=== PATIENT | female | born 1965 | race Caucasian/White ===

== ENCOUNTER 2019-01-10 21:17 | Emergency (ER) | payer MEDICAID ==
[~2019-01-10] VITALS: Ht 165.1 cm; Wt 71.3 kg
[~2019-01-10 21:17] MED LIST: ASPI-1265 PO; BUDE10.2 INH; CARB200T8 PO; CITA20TA28 PO; CLON-514 PO; DESM0.2T31 PO; DOCU100C40 PO; FEXO180T94 PO; FLUT1AER INH; LEVA15HF4 INH; LEVE500T PO; LEVO112T5 PO; LORA0.5T PO; PANT20TA2 PO; PRAV10TA38 PO; REM15T PO; TIOT4MIS2 PO
--- NOTE | 2019-01-10 22:06 | NUR ---
DR BELLAMY AT BEDSIDE,PT AWAKE NOW ,FAMILY AT BEDSIDE.
[2019-01-10] MEDS ORDERED: normal saline 1000ml 1,000 ML IV ONE (22:35)
[2019-01-10 22:52] LABS: BASOPHILS % (AUTO) 0.6 % (0-1); EOSINOPHILS # (AUTO) 0.3 X10'3 (0-0.9); EOSINOPHILS % (AUTO) 3.3 % (0-6); HEMATOCRIT 31.5 % (35.0-45.0); LYMPHOCYTES # (AUTO) 1.5 X10'3 (1.1-4.8); LYMPHOCYTES % (AUTO) 17.9 % (21-51); MEAN CORPUSCULAR HEMOGLOBIN 32.7 PG (27.0-31.0); MEAN CORPUSCULAR VOLUME 93.4 FL (78-98); MEAN PLATELET VOLUME 6.8 FL (7.4-10.4); MONOCYTES # (AUTO) 0.6 X10'3 (0-0.9); MONOCYTES % (AUTO) 6.8 % (2-12); NEUTROPHILS # (AUTO) 6.2 X10'3 (1.8-7.7); NEUTROPHILS % (AUTO) 71.4 % (42-75); PLATELET COUNT 300 X10'3 (140-440); RED BLOOD COUNT 3.37 X10'6 (4.20-5.60); RED CELL DISTRIBUTION WIDTH 14.1 % (11.5-14.5); WHITE BLOOD COUNT 8.6 X10'3 (4.5-11.0)
[2019-01-10 23:05] LABS: ALANINE AMINOTRANSFERASE 31 U/L (12-78); ALBUMIN 3.1 G/DL (3.4-5.0); ALKALINE PHOSPHATASE 150 IU/L (46-116); ANION GAP 5 (8-16); ASPARTATE AMINO TRANSFERASE 7 U/L (10-37); BILIRUBIN,TOTAL 0.3 MG/DL (0.1-1.0); BLOOD UREA NITROGEN 16 MG/DL (7-18); CALCIUM 6.8 MG/DL (8.5-10.1); CHLORIDE 99 MMOL/L (99-107); CREATININE 0.64 MG/DL (0.40-0.90); GLUCOSE 103 MG/DL (70-104); POTASSIUM 4.3 MMOL/L (3.5-5.1); SODIUM 129 MMOL/L (135-145); TOTAL CARBON DIOXIDE 25.2 MMOL/L (24-32); TOTAL PROTEIN 6.2 G/DL (6.4-8.2); eGFR > 90 ML/MIN
[2019-01-10 23:08] VITALS: BP 112/62
[2019-01-10 23:13] LABS: CREATINE KINASE 75 U/L (26-192)
--- NOTE | 2019-01-10 23:13 | NUR ---
PT ASSISTED TO RESTROOM,PT ALERTX4 DENIES ANY DIZZINESS.
[2019-01-10 23:15] LABS: ETHANOL < 0.010 GM/DL (0.0-0.010)
[2019-01-10 23:31] LABS: CLARITY,URINE CLEAR (Clear); COLOR,URINE YELLOW (Yellow); GLUCOSE, URINE NEGATIVE (Neg); KETONES,URINE NEGATIVE (Neg); LEUKOCYTE ESTERASE ,URINE NEGATIVE (Neg); NITRITES, URINE NEGATIVE (Neg); OCCULT BLOOD,URINE NEGATIVE (Neg); PH,URINE 5.5 (4.8-8.0); PROTEIN,URINE NEGATIVE (Neg); UROBILINOGEN,URINE 0.2 E.U/dL (0.2-1.0)
[2019-01-10 23:41] LABS: UA COLLECTION TYPE CLN CATCH MIDSTREAM
[2019-01-10 23:57] LABS: URINE AMPHETAMINE SCREEN NEGATIVE (Neg); URINE BARBITUATE SCREEN NEGATIVE (Neg); URINE BENZODIAZEPINES SCREEN NEGATIVE (Neg); URINE CANNABINOID SCREEN POSITIVE (Neg); URINE COCAINE SCREEN NEGATIVE (Neg); URINE METHADONE SCREEN NEGATIVE (Neg); URINE OPIATE SCREEN POSITIVE (Neg); URINE PHENCYCLIDINE SCREEN NEGATIVE (Neg)
== END 2019-01-11 00:10 | disposition home or self-care (01) ==
LOC: ER 21:18
DX: R55 Syncope and collapse (principal); R94.6 Abnormal results of thyroid function studies; G43.909 Migraine, unspecified, not intractable, without status migrainosus; J44.9 Chronic obstructive pulmonary disease, unspecified; G89.29 Other chronic pain; F12.90 Cannabis use, unspecified, uncomplicated; Z86.73 Personal history of transient ischemic attack (TIA), and cerebral infarction without residual deficits; Z88.0 Allergy status to penicillin; Z88.8 Allergy status to other drugs, medicaments and biological substances; Z88.6 Allergy status to analgesic agent; Z79.82 Long term (current) use of aspirin
CPT/HCPCS: 36415; 80053; 80305; 80320; 81003; 82140; 82550; 84443; 85025; 85610; 93005; 96361; 99284; J7030; 96360

== ENCOUNTER 2019-08-24 15:49 | Emergency (ER) | payer MEDICAID ==
[~2019-08-24] VITALS: Ht 162.6 cm; Wt 60.0 kg
[2019-08-24 17:00] VITALS: BP 110/71
[2019-08-24] MEDS ORDERED: HYDROcodone/acetaminophen 10/325mg tab PO ONE (17:20)
[2019-08-24] MEDS ORDERED: IBUP-1984 PO (18:13)
== END 2019-08-24 19:09 | disposition home or self-care (01) ==
LOC: ER 15:49
DX: S06.0X1A Concussion with loss of consciousness of 30 minutes or less, initial encounter (principal); S42.291A Other displaced fracture of upper end of right humerus, initial encounter for closed fracture; S71.031A Puncture wound without foreign body, right hip, initial encounter; S00.83XA Contusion of other part of head, initial encounter; G43.909 Migraine, unspecified, not intractable, without status migrainosus; J44.9 Chronic obstructive pulmonary disease, unspecified; G89.29 Other chronic pain; F12.90 Cannabis use, unspecified, uncomplicated; Z86.73 Personal history of transient ischemic attack (TIA), and cerebral infarction without residual deficits; Z79.82 Long term (current) use of aspirin; Z79.899 Other long term (current) drug therapy; Z88.0 Allergy status to penicillin; Z88.8 Allergy status to other drugs, medicaments and biological substances; Z88.5 Allergy status to narcotic agent; Z88.6 Allergy status to analgesic agent; W01.198A Fall on same level from slipping, tripping and stumbling with subsequent striking against other object, initial encounter; Y93.89 Activity, other specified; Y92.89 Other specified places as the place of occurrence of the external cause; Y99.9 Unspecified external cause status
CPT/HCPCS: 70450; 73030; 99284

== ENCOUNTER 2019-10-22 10:38 | Inpatient (IN) | payer MEDICAID ==
[~2019-10-22] VITALS: Ht 162.6 cm; Wt 59.1 kg
[2019-10-22] MEDS ORDERED: oxyCODONE/APAP 5-325mg tablet PO ONE (11:30)
[2019-10-22] MEDS ORDERED: ondansetron 4mg rapidly disintigrating tab PO ONE (11:30)
[2019-10-22 12:21] LABS: BASOPHILS % (AUTO) 0.6 % (0-1); EOSINOPHILS % (AUTO) 0.5 % (0-6); HEMATOCRIT 37.1 % (35.0-45.0); HEMOGLOBIN 12.5 g/dl (12.0-16.0); LYMPHOCYTES # (AUTO) 1.3 X10'3 (1.1-4.8); LYMPHOCYTES % (AUTO) 18.4 % (21-51); MEAN CORPUSCULAR HEMOGLOBIN 30.9 PG (27.0-31.0); MEAN CORPUSCULAR HGB CONC 33.7 g/dL (33.0-36.5); MEAN CORPUSCULAR VOLUME 91.7 FL (78-98); MEAN PLATELET VOLUME 6.3 FL (7.4-10.4); MONOCYTES # (AUTO) 0.4 X10'3 (0-0.9); MONOCYTES % (AUTO) 5.5 % (2-12); NEUTROPHILS # (AUTO) 5.4 X10'3 (1.8-7.7); PLATELET COUNT 348 X10'3 (140-440); RED BLOOD COUNT 4.04 X10'6 (4.20-5.60); RED CELL DISTRIBUTION WIDTH 13.5 % (11.5-14.5); WHITE BLOOD COUNT 7.2 X10'3 (4.5-11.0)
[2019-10-22] MEDS ORDERED: morphine 2 MG/ML inj. syringe IV PRN ×2 (12:30→13:25)
[2019-10-22] MEDS ORDERED: acetaminophen 325mg tablet PO PRN (12:30)
[2019-10-22] MEDS ORDERED: magnesium hydroxide 30ml (MOM) UD suspension PO PRN (12:30)
[2019-10-22] MEDS ORDERED: ondansetron/PF 4mg/2ml inj IV PRN ×2 (12:30→13:25)
[2019-10-22] MEDS ORDERED: mag hydrox/Alum hydrox/simeth 30ml oral suspension PO PRN (12:30)
[2019-10-22 12:33] LABS: PARTIAL THROMBOPLASTIN TIME 29 SECONDS (22-32)
[2019-10-22 12:41] LABS: ALANINE AMINOTRANSFERASE 20 U/L (12-78); ALBUMIN 3.7 G/DL (3.4-5.0); ALKALINE PHOSPHATASE 180 IU/L (46-116); ANION GAP 8 (8-16); ASPARTATE AMINO TRANSFERASE 15 U/L (10-37); BILIRUBIN,TOTAL 0.2 MG/DL (0.1-1.0); BLOOD UREA NITROGEN 8 MG/DL (7-18); BUN/CREATININE RATIO 12.3 (6.6-38.0); CALCIUM 8.8 MG/DL (8.5-10.1); CHLORIDE 93 MMOL/L (99-107); CREATININE 0.65 MG/DL (0.40-0.90); GLUCOSE 104 MG/DL (70-104); POTASSIUM 4.5 MMOL/L (3.5-5.1); SODIUM 125 MMOL/L (135-145); TOTAL PROTEIN 7.4 G/DL (6.4-8.2); eGFR > 90 ML/MIN
[2019-10-22] MEDS ORDERED: GABA-534 PO (12:50)
[2019-10-22] MEDS ORDERED: LISI10TA4 PO (12:50)
[2019-10-22] MEDS ORDERED: HYDR-3965 PO (12:50)
[2019-10-22] MEDS ORDERED: LEVO100T PO (12:50)
[2019-10-22] MEDS ORDERED: TOP100T PO (12:50)
[2019-10-22] MEDS: normal saline 1000ml 1,000 ML IV SCH ×2 (13:03→23:04)
[2019-10-22] MEDS ORDERED: ringers solution, lacted 1,000 ML IV SCH (13:23)
[2019-10-22] MEDS ORDERED: proCHLORperazine 10 MG/2 ml inj IV PRN (13:25)
[2019-10-22] MEDS ORDERED: meperidine/PF 25mg/ml syringe IV PRN ×3 (13:25)
[2019-10-22] MEDS ORDERED: morphine 4 MG/ML inj SYRINge IV PRN (13:25)
[2019-10-22] MEDS: morphine 2 MG/ML inj. syringe IV PRN ×2 (13:31→19:38)
--- NOTE | 2019-10-22 13:35 | NUR ---
Pt having continued pain 8/10 after PO medication given 1 hour ago. Pt given IV morphine for her pain.
[2019-10-22] MEDS ORDERED: docusate sod 100mg capsule PO PRN (16:25)
[2019-10-22 16:35] VITALS: BP 166/88
[2019-10-22] MEDS: LORazepam 0.5 MG tablet PO PRN (16:40)
[2019-10-22] MEDS: HYDROcodone/acetaminophen 5mg/325mg tablet PO PRN (16:40)
[2019-10-22] MEDS: nicotine 14mg patch - 24hr TD SCH (16:59)
[2019-10-22] MEDS ORDERED: LIDOcaine 2% 10ml TOPICAL JELLY (Urojet) TP ONE (17:10)
--- NOTE | 2019-10-22 18:11 | NUR ---
Problems reprioritized. Patient report given, questions answered & plan of care reviewed with Nicole GOMEZ.
[2019-10-22] MEDS ORDERED: non-formulary drug (Budesonide/Formoterol Fumarate (Symbicort 160-4.5 Mcg Inhaler) 2 PUFFS INH SCH (20:00)
[2019-10-22] MEDS: heparin, porcine 5000 units/ml vial SQ SCH (20:00)
[2019-10-22] MEDS: ipratropium 0.5 MG/2.5ML nebule IH SCH (20:05)
[2019-10-22] MEDS: carBAMazepine Ext. Release 200 MG TAB.ER.12H PO SCH (20:43)
[2019-10-22] MEDS: gabapentin 400mg capsule PO SCH (20:43)
[2019-10-22 22:00] VITALS: BP 132/48
[2019-10-22] MEDS: topiramate 100mg tablet PO SCH (22:06)
[2019-10-22] MEDS: mirtazapine 15mg tablet PO SCH (22:06)
[2019-10-23] VITALS (19 sets, daily range): BP systolic 94–163; BP diastolic 48–91
[2019-10-23] MEDS: morphine 2 MG/ML inj. syringe IV PRN ×5 (01:03→21:17)
[2019-10-23 03:11] LABS: CLARITY,URINE CLEAR (Clear); COLOR,URINE STRAW (Yellow); GLUCOSE, URINE NEGATIVE (Neg); KETONES,URINE 15 mg/dl (Neg); LEUKOCYTE ESTERASE ,URINE NEGATIVE (Neg); NITRITES, URINE NEGATIVE (Neg); OCCULT BLOOD,URINE TRACE-INTACT (Neg); PH,URINE 6.5 (4.8-8.0); PROTEIN,URINE NEGATIVE (Neg); UROBILINOGEN,URINE 0.2 E.U/dL (0.2-1.0)
[2019-10-23 03:22] LABS: UA COLLECTION TYPE STRAIGHT CATH
[2019-10-23 03:24] LABS: BACTERIA,URINE NONE SEEN /HPF (Neg); RBC,URINE 0-2 /HPF (0-2); SQUAMOUS EPITHELIAL CELL,UR FEW /LPF (FEW); WBC,URINE 0-4 /HPF (0-4)
[2019-10-23] MEDS: ipratropium 0.5 MG/2.5ML nebule IH SCH ×4 (04:00→20:05)
[2019-10-23 05:30] LABS: BASOPHILS % (AUTO) 0.5 % (0-1); EOSINOPHILS % (AUTO) 0.4 % (0-6); HEMATOCRIT 36.8 % (35.0-45.0); HEMOGLOBIN 12.5 g/dl (12.0-16.0); LYMPHOCYTES # (AUTO) 1.2 X10'3 (1.1-4.8); LYMPHOCYTES % (AUTO) 22.2 % (21-51); MEAN CORPUSCULAR HEMOGLOBIN 31.3 PG (27.0-31.0); MEAN CORPUSCULAR HGB CONC 34.1 g/dL (33.0-36.5); MEAN CORPUSCULAR VOLUME 91.9 FL (78-98); MEAN PLATELET VOLUME 6.6 FL (7.4-10.4); MONOCYTES # (AUTO) 0.4 X10'3 (0-0.9); MONOCYTES % (AUTO) 7.2 % (2-12); NEUTROPHILS # (AUTO) 3.9 X10'3 (1.8-7.7); NEUTROPHILS % (AUTO) 69.7 % (42-75); PLATELET COUNT 357 X10'3 (140-440); RED CELL DISTRIBUTION WIDTH 13.5 % (11.5-14.5); WHITE BLOOD COUNT 5.6 X10'3 (4.5-11.0)
[2019-10-23 05:39] LABS: ALBUMIN 3.5 G/DL (3.4-5.0); ANION GAP 10 (8-16); BLOOD UREA NITROGEN 7 MG/DL (7-18); BUN/CREATININE RATIO 10.9 (6.6-38.0); CALCIUM 8.7 MG/DL (8.5-10.1); CHLORIDE 106 MMOL/L (99-107); CREATININE 0.64 MG/DL (0.40-0.90); GLUCOSE 98 MG/DL (70-104); POTASSIUM 3.8 MMOL/L (3.5-5.1); SODIUM 139 MMOL/L (135-145); TOTAL CARBON DIOXIDE 23.3 MMOL/L (24-32); eGFR > 90 ML/MIN
--- NOTE | 2019-10-23 06:00 | NUR ---
Patient in room ORTHO 4007. I have received report from Nicole GOMEZ and had the opportunity to ask questions and assume patient care.
--- NOTE | 2019-10-23 06:57 | NUR ---
Patient going to OR, called report to Recovery
[2019-10-23] MEDS ORDERED: MIDAZolam 5mg/5ml vial ONE (07:13)
[2019-10-23] MEDS ORDERED: fentaNYL/PF 50MCG/1 ML 2ML syringe ONE (07:13)
[2019-10-23] MEDS: loratadine 10mg tablet PO SCH (07:16)
[2019-10-23] MEDS: VILANTEROL IH SCH (07:16)
[2019-10-23] MEDS: citalopram 20mg tablet PO SCH ×2 (07:16→09:59)
[2019-10-23] MEDS: FLUTICASONE IH SCH (07:16)
[2019-10-23] MEDS: aspirin 81mg tab.chew PO SCH (07:16)
[2019-10-23] MEDS: heparin, porcine 5000 units/ml vial SQ SCH ×2 (07:17→20:25)
[2019-10-23] MEDS ORDERED: VANCOMYCIN 1,500MG inj. 1,500 MG in normal saline 500ml IV soln 500 ML IV ONE (07:30)
[2019-10-23] MEDS ORDERED: CLINDAMYCIN/D5W 900mg/50ml 50 ML IV ONE (07:30)
[2019-10-23] MEDS ORDERED: DESMOPRESSIN ACETATE 0.2 MG TABLET PO SCH (08:00)
[2019-10-23] MEDS: lisinopril 10 MG tablet PO SCH (08:00)
[2019-10-23] MEDS ORDERED: non-formulary drug (Tiotropium Bromide (Spiriva Respimat) 2 PUFFS) PO SCH (08:00)
[2019-10-23] MEDS ORDERED: non-formulary drug (Fluticasone/Vilanterol (Breo Ellipta 100-25 Mcg INH) 1 PUFF) INH SCH (08:00)
[2019-10-23] MEDS ORDERED: LIDOcaine 1%/PF 5ML 10 MG/ML VIAL ONE (08:28)
[2019-10-23] MEDS ORDERED: propofol inj 20 ML IV ONE (08:28)
[2019-10-23] MEDS ORDERED: diphenhydrAMINE 50 mg/ml inj ONE (08:28)
--- NOTE | 2019-10-23 08:29 | NUR ---
Received from OR via ORTHO BED WITH [facility] , accompanied by Anesthesiologist NADIA and report given by Anesthesiolgist. PATIENT SPINAL ANESTHESIA T-12 SENSATION LEVEL. ROUSED, DONNED GLASSES. VSS. DENIES PAIN. RIGHT HIP DRESSINGS ARE CDI. + DP ON DOPPLER BILATERALLY. SCDS DONNED. 20G PIV IN RIGHT UE RUNNING LR AT 100. Addendum: 10/23/19 at 0901 by Tera Rodriguez RN, RN Amended: Links added.
[2019-10-23] MEDS: normal saline 1000ml 1,000 ML IV SCH ×2 (08:30→18:47)
--- NOTE | 2019-10-23 09:29 | NUR ---
Patient has met criteria for transfer to floor. Patient vss. Pain at a tolerable level. Transferred via bed to room where they were hooked to vitals and RN notified patient has arrived. Bed low, call light within reach, 2-3 rails up, vss, belongings placed in room. Care turned over to JASON HILLMAN. Addendum: 10/23/19 at 0941 by Tera Jordan - JASON GOMEZ Amended: Links added.
[2019-10-23] MEDS: levoTHYROXINE 100mcg tablet PO SCH (09:59)
[2019-10-23] MEDS: pantoprazole 40mg Tablet.DR PO SCH (09:59)
[2019-10-23] MEDS: gabapentin 400mg capsule PO SCH ×3 (09:59→20:24)
[2019-10-23] MEDS: carBAMazepine Ext. Release 200 MG TAB.ER.12H PO SCH ×3 (10:00→20:24)
[2019-10-23] MEDS: nicotine 14mg patch - 24hr TD SCH (10:00)
[2019-10-23] MEDS: HYDROcodone/acetaminophen 5mg/325mg tablet PO PRN (10:57)
[2019-10-23] MEDS: levalbuterol 1.25mg/0.5ml nebule IH PRN (13:51)
[2019-10-23] MEDS: HYDROcodone/acetaminophen 10/325mg tab PO PRN ×3 (14:43→23:45)
[2019-10-23] MEDS: clindamycin-Cleocin 900mg/D5W 50 ML IV SCH ×2 (16:02→23:45)
[2019-10-23] MEDS: LORazepam 0.5 MG tablet PO PRN (16:02)
--- NOTE | 2019-10-23 18:05 | NUR ---
Problems reprioritized. Patient report given, questions answered & plan of care reviewed with Nahomi GOMEZ.
--- NOTE | 2019-10-23 18:16 | NUR ---
Patient in room ORTHO 4007. I have received report from Kimberly GOMEZ and had the opportunity to ask questions and assume patient care.
[2019-10-23] MEDS: topiramate 100mg tablet PO SCH (20:24)
[2019-10-23] MEDS: DESMOPRESSIN ACETATE 0.2 MG TABLET PO SCH (20:24)
[2019-10-23] MEDS: mirtazapine 15mg tablet PO SCH (20:25)
[2019-10-24 02:00] VITALS: BP 170/86
[2019-10-24] MEDS: morphine 2 MG/ML inj. syringe IV PRN ×3 (02:06→11:16)
[2019-10-24] MEDS: ipratropium 0.5 MG/2.5ML nebule IH SCH ×4 (02:24→20:09)
[2019-10-24] MEDS ORDERED: lisinopril 10 MG tablet PO ONE (04:30)
[2019-10-24] MEDS: normal saline 1000ml 1,000 ML IV SCH ×2 (04:30→08:42)
--- NOTE | 2019-10-24 04:30 | NUR ---
Patient having high BP's. Spoke to Dr. Russell and got a one time dose of Lisinopril to give to pt. Patient stated she normally takes lisinopril daily but did not receive it on 10/22 due to having surgery.
[2019-10-24] MEDS: HYDROcodone/acetaminophen 10/325mg tab PO PRN ×5 (04:35→21:55)
[2019-10-24 05:59] LABS: BASOPHILS % (AUTO) 0.5 % (0-1); EOSINOPHILS % (AUTO) 0.6 % (0-6); HEMATOCRIT 30.7 % (35.0-45.0); HEMOGLOBIN 10.3 g/dl (12.0-16.0); LYMPHOCYTES # (AUTO) 1.3 X10'3 (1.1-4.8); LYMPHOCYTES % (AUTO) 23.2 % (21-51); MEAN CORPUSCULAR HEMOGLOBIN 30.8 PG (27.0-31.0); MEAN CORPUSCULAR HGB CONC 33.5 g/dL (33.0-36.5); MEAN PLATELET VOLUME 6.6 FL (7.4-10.4); MONOCYTES # (AUTO) 0.5 X10'3 (0-0.9); MONOCYTES % (AUTO) 8.9 % (2-12); NEUTROPHILS # (AUTO) 3.9 X10'3 (1.8-7.7); NEUTROPHILS % (AUTO) 66.8 % (42-75); PLATELET COUNT 258 X10'3 (140-440); RED BLOOD COUNT 3.34 X10'6 (4.20-5.60); RED CELL DISTRIBUTION WIDTH 13.2 % (11.5-14.5); WHITE BLOOD COUNT 5.8 X10'3 (4.5-11.0)
[2019-10-24 06:00] VITALS: BP 176/81
[2019-10-24 06:11] LABS: ALBUMIN 2.7 G/DL (3.4-5.0); ANION GAP 9 (8-16); BLOOD UREA NITROGEN 5 MG/DL (7-18); BUN/CREATININE RATIO 9.1 (6.6-38.0); CALCIUM 7.7 MG/DL (8.5-10.1); CHLORIDE 101 MMOL/L (99-107); CREATININE 0.55 MG/DL (0.40-0.90); GLUCOSE 111 MG/DL (70-104); POTASSIUM 3.3 MMOL/L (3.5-5.1); SODIUM 132 MMOL/L (135-145); TOTAL CARBON DIOXIDE 22.4 MMOL/L (24-32); eGFR > 90 ML/MIN
--- NOTE | 2019-10-24 06:31 | NUR ---
Problems reprioritized. Patient report given, questions answered & plan of care reviewed with Kimberly GOMEZ.
--- NOTE | 2019-10-24 06:34 | NUR ---
Patient in room ORTHO 4007. I have received report from Nahomi GOMEZ and had the opportunity to ask questions and assume patient care.
[2019-10-24] MEDS: VILANTEROL IH SCH (08:00)
[2019-10-24] MEDS: FLUTICASONE IH SCH (08:00)
[2019-10-24] MEDS: lisinopril 10 MG tablet PO SCH (08:00)
[2019-10-24] MEDS: levalbuterol 1.25mg/0.5ml nebule IH PRN ×2 (08:19→14:05)
[2019-10-24] MEDS: carBAMazepine Ext. Release 200 MG TAB.ER.12H PO SCH ×3 (08:34→20:07)
[2019-10-24] MEDS: levoTHYROXINE 100mcg tablet PO SCH (08:34)
[2019-10-24] MEDS: gabapentin 400mg capsule PO SCH ×3 (08:34→20:07)
[2019-10-24] MEDS: loratadine 10mg tablet PO SCH (08:34)
[2019-10-24] MEDS: citalopram 20mg tablet PO SCH (08:35)
[2019-10-24] MEDS: aspirin 81mg tab.chew PO SCH (08:35)
[2019-10-24] MEDS: pantoprazole 40mg Tablet.DR PO SCH (08:35)
[2019-10-24] MEDS: heparin, porcine 5000 units/ml vial SQ SCH ×2 (08:40→20:07)
[2019-10-24] MEDS: nicotine 14mg patch - 24hr TD SCH (08:41)
[2019-10-24 10:00] VITALS: BP 142/74
[2019-10-24] MEDS ORDERED: potassium Cl 20 mEq SR tablet PO PRN (11:00)
[2019-10-24] MEDS ORDERED: potassium CL 10mEq/100ml bag 100 ML IV PRN (11:00)
[2019-10-24] MEDS: potassium Cl 20 mEq SR tablet PO PRN ×3 (11:14→22:10)
[2019-10-24 18:00] VITALS: BP 168/84
--- NOTE | 2019-10-24 18:00 | NUR ---
Problems reprioritized. Patient report given, questions answered & plan of care reviewed with Donna GOMEZ.
--- NOTE | 2019-10-24 18:40 | NUR ---
Patient in room ORTHO 4007. I have received report from Kimberly GOMEZ and had the opportunity to ask questions and assume patient care.
[2019-10-24] MEDS: DESMOPRESSIN ACETATE 0.2 MG TABLET PO SCH (20:08)
[2019-10-24] MEDS: mirtazapine 15mg tablet PO SCH (20:08)
[2019-10-24] MEDS: topiramate 100mg tablet PO SCH (20:08)
[2019-10-24 22:00] VITALS: BP 158/82
[2019-10-25] MEDS: ipratropium 0.5 MG/2.5ML nebule IH SCH ×2 (02:31→09:11)
[2019-10-25] MEDS: HYDROcodone/acetaminophen 10/325mg tab PO PRN ×2 (05:02→08:57)
[2019-10-25 05:16] LABS: BASOPHILS % (AUTO) 0.5 % (0-1); EOSINOPHILS # (AUTO) 0.1 X10'3 (0-0.9); EOSINOPHILS % (AUTO) 0.9 % (0-6); HEMATOCRIT 30.1 % (35.0-45.0); HEMOGLOBIN 10.5 g/dl (12.0-16.0); LYMPHOCYTES # (AUTO) 1.3 X10'3 (1.1-4.8); LYMPHOCYTES % (AUTO) 17.2 % (21-51); MEAN CORPUSCULAR HEMOGLOBIN 31.7 PG (27.0-31.0); MEAN CORPUSCULAR HGB CONC 34.7 g/dL (33.0-36.5); MEAN CORPUSCULAR VOLUME 91.2 FL (78-98); MEAN PLATELET VOLUME 6.8 FL (7.4-10.4); MONOCYTES # (AUTO) 0.7 X10'3 (0-0.9); MONOCYTES % (AUTO) 8.7 % (2-12); NEUTROPHILS # (AUTO) 5.6 X10'3 (1.8-7.7); NEUTROPHILS % (AUTO) 72.7 % (42-75); PLATELET COUNT 264 X10'3 (140-440); RED CELL DISTRIBUTION WIDTH 13.3 % (11.5-14.5); WHITE BLOOD COUNT 7.7 X10'3 (4.5-11.0)
[2019-10-25 05:37] LABS: ALBUMIN 2.9 G/DL (3.4-5.0); ANION GAP 9 (8-16); BLOOD UREA NITROGEN 5 MG/DL (7-18); BUN/CREATININE RATIO 9.6 (6.6-38.0); CALCIUM 8.3 MG/DL (8.5-10.1); CHLORIDE 100 MMOL/L (99-107); CREATININE 0.52 MG/DL (0.40-0.90); GLUCOSE 114 MG/DL (70-104); SODIUM 131 MMOL/L (135-145); TOTAL CARBON DIOXIDE 22.4 MMOL/L (24-32); eGFR > 90 ML/MIN
--- NOTE | 2019-10-25 05:54 | NUR ---
0450 PATIENT MEDICATED WITH NORCO 10 FOR PAIN IN R HIP AND STOOD BY FOR PATIENT TO AMBULATE TO BATHROOM TO VOID. PAIN /, GAIT IS STEADY AND CONTINUOUS. NEEDED REMINDER TO STAND WITH ONE HAND ON SOMETHING ANCHORED AND OTHER HAND ON FWW. BACK TO BED AND RETURNED TO SLEEP. CALL LIGHT IN REACH
[2019-10-25 06:00] VITALS: BP 174/82
--- NOTE | 2019-10-25 06:28 | NUR ---
Problems reprioritized. Patient report given, questions answered & plan of care reviewed with ERIK GOMEZ.
--- NOTE | 2019-10-25 06:30 | NUR ---
Patient in room ORTHO 4007. I have received report from JASON Thompson and had the opportunity to ask questions and assume patient care.
[2019-10-25] MEDS ORDERED: K and/or MAG REPLACEMENT MC SCH (08:00)
[2019-10-25] MEDS: pantoprazole 40mg Tablet.DR PO SCH (08:04)
[2019-10-25] MEDS: aspirin 81mg tab.chew PO SCH (08:04)
[2019-10-25] MEDS: levoTHYROXINE 100mcg tablet PO SCH (08:04)
[2019-10-25] MEDS: loratadine 10mg tablet PO SCH (08:04)
[2019-10-25] MEDS: citalopram 20mg tablet PO SCH (08:04)
[2019-10-25] MEDS: carBAMazepine Ext. Release 200 MG TAB.ER.12H PO SCH (08:04)
[2019-10-25] MEDS: nicotine 14mg patch - 24hr TD SCH (08:05)
[2019-10-25] MEDS: lisinopril 10 MG tablet PO SCH (08:05)
[2019-10-25] MEDS: heparin, porcine 5000 units/ml vial SQ SCH (08:05)
[2019-10-25] MEDS: gabapentin 400mg capsule PO SCH (08:05)
[2019-10-25 10:00] VITALS: BP 153/91
--- NOTE | 2019-10-25 12:37 | NUR ---
Pt discharged per nursing. Discharge instructions and medications reviewed. No new prescriptions ordered. Dressing to right lateral hip changed prior to discharge, with extra island dressing sent home with patient. IV DC'd, cannula intact. Pt instructed to follow up with [facility] in 2 weeks, phone number provided. Pt also instructed to watch for any signs of infection, and to notify [facility] and head to ED if symptoms of infection noted. Pt waiting for ride to arrive prior to heading to [facility].
--- NOTE | 2019-10-25 12:40 | NUR ---
Pt escorted to front lobby via wheelchair by PCT
== END 2019-10-25 13:10 | disposition home health service (06) | DRG 308 ==
LOC: ER 10:39 → ED HOLD 12:30 → ORTHO 4S 16:26
PROVIDERS: ADMIT Family Medicine; ATTEND Family Medicine
PROC: 0QS606Z Reposition Right Upper Femur with Intramedullary Internal Fixation Device, Open Approach (ICD-10-PCS; principal; 2019-10-23 07:30)
DX: S72.141A Displaced intertrochanteric fracture of right femur, initial encounter for closed fracture (principal); E87.1 Hypo-osmolality and hyponatremia; F12.90 Cannabis use, unspecified, uncomplicated; F17.210 Nicotine dependence, cigarettes, uncomplicated; F31.9 Bipolar disorder, unspecified; F41.9 Anxiety disorder, unspecified; W18.39XA Other fall on same level, initial encounter; G40.909 Epilepsy, unspecified, not intractable, without status epilepticus; K21.9 Gastro-esophageal reflux disease without esophagitis; J44.9 Chronic obstructive pulmonary disease, unspecified; I10 Essential (primary) hypertension; G43.909 Migraine, unspecified, not intractable, without status migrainosus; G89.29 Other chronic pain; E11.9 Type 2 diabetes mellitus without complications; G35 Multiple sclerosis; M54.9 Dorsalgia, unspecified; E87.6 Hypokalemia; E89.0 Postprocedural hypothyroidism; Z79.82 Long term (current) use of aspirin; Z71.6 Tobacco abuse counseling; Z86.73 Personal history of transient ischemic attack (TIA), and cerebral infarction without residual deficits; Z90.49 Acquired absence of other specified parts of digestive tract; Z85.41 Personal history of malignant neoplasm of cervix uteri; Z90.710 Acquired absence of both cervix and uterus; Z90.89 Acquired absence of other organs; Y93.89 Activity, other specified; Y92.89 Other specified places as the place of occurrence of the external cause; Z96.698 Presence of other orthopedic joint implants; Y99.8 Other external cause status; Z88.0 Allergy status to penicillin; Z88.8 Allergy status to other drugs, medicaments and biological substances; Z79.890 Hormone replacement therapy; Z79.51 Long term (current) use of inhaled steroids
CPT/HCPCS: 36415; 71045; 73502; 73551; 73552; 76000; 80048; 80053; 81001; 82948; 84443; 85025; 85610; 85730; 87081; 93005; 94640; 94760; 97110; 97116; 97161; 97530; 99285; A4618; A6455; A7000; C1713; G0378; J1200; J1644; J2250; J2270; J2405; J2704; J3010; J3370; J3490; J7030; J7040; J7120; J7614

== ENCOUNTER 2022-07-09 10:45 | Inpatient (IN) | payer MEDICAID ==
--- NOTE | 2022-06-26 23:00 | NUR ---
This is for MS Brandt U 7682Q. Pt. has only 70 ml urine for past 3 hours. c/o sob with wheezing. on 02 2L sats 96% Uses CPAP at night. Lab called will critical low has been low all week followed by Nephro. bp 143/81
[~2022-07-09] VITALS: Ht 162.6 cm; Wt 61.7 kg
[~2022-07-09 10:45] MED LIST changes: -CLON-514 PO; +GABA-534 PO; +HYDR-3965 PO; -LEVE500T PO; +LEVO100T PO; -LEVO112T5 PO; +LISI10TA27 PO; -PRAV10TA38 PO; +TOP100T PO
[2022-07-09 11:11] LABS: BASOPHILS % (AUTO) 0.5 % (0-1); EOSINOPHILS % (AUTO) 0.5 % (0-6); HEMATOCRIT 29.3 % (35.0-45.0); LYMPHOCYTES # (AUTO) 0.9 X10'3 (1.1-4.8); LYMPHOCYTES % (AUTO) 11.3 % (21-51); MEAN CORPUSCULAR HEMOGLOBIN 31.2 PG (27.0-31.0); MEAN CORPUSCULAR HGB CONC 34.1 g/dL (33.0-36.5); MEAN CORPUSCULAR VOLUME 91.6 FL (78-98); MEAN PLATELET VOLUME 7.4 FL (7.4-10.4); MONOCYTES # (AUTO) 0.3 X10'3 (0-0.9); MONOCYTES % (AUTO) 3.8 % (2-12); NEUTROPHILS # (AUTO) 6.4 X10'3 (1.8-7.7); NEUTROPHILS % (AUTO) 83.9 % (42-75); PLATELET COUNT 273 X10'3 (140-440); RED CELL DISTRIBUTION WIDTH 15.5 % (11.5-14.5); WHITE BLOOD COUNT 7.7 X10'3 (4.5-11.0)
[2022-07-09 11:23] LABS: ALANINE AMINOTRANSFERASE 20 U/L (12-78); ALBUMIN 4.2 G/DL (3.4-5.0); ALBUMIN/GLOBULIN RATIO 1.1 (1.1-1.5); ALKALINE PHOSPHATASE 133 IU/L (46-116); ANION GAP 13 (8-16); ASPARTATE AMINO TRANSFERASE 14 U/L (10-37); BILIRUBIN,TOTAL 0.3 MG/DL (0.1-1.0); BLOOD UREA NITROGEN 100 MG/DL (7-18); BUN/CREATININE RATIO 18.4 (6.6-38.0); CALCIUM 7.6 MG/DL (8.5-10.1); CHLORIDE 92 MMOL/L (99-107); CREATININE 5.43 MG/DL (0.40-0.90); GLUCOSE 127 MG/DL (70-104); MAGNESIUM 2.2 MG/DL (1.5-2.4); POTASSIUM 5.9 MMOL/L (3.5-5.1); SODIUM 122 MMOL/L (135-145); TOTAL PROTEIN 7.9 G/DL (6.4-8.2); eGFR 8 ML/MIN
[2022-07-09] MEDS ORDERED: calcium chloride inj. 1,000 MG in normal saline 100ml IV soln 100 ML IV ONE ×4 (12:20)
[2022-07-09] MEDS ORDERED: calcium chloride 100 MG/1 ML inj IV ONE (12:30)
[2022-07-09] MEDS ORDERED: furosemide 10 MG/1 ML 10ml inj IV ONE (13:00)
[2022-07-09] MEDS ORDERED: dextrose 50%-water 50ml dispensing syringe IV ONE (13:00)
[2022-07-09] MEDS ORDERED: insulin regular, human 10 units/0.1 ml syringe IV ONE (13:00)
[2022-07-09] MEDS ORDERED: sodium bicarbonate (8.4%) 1 mEq/ml syringe IV ONE (13:00)
[2022-07-09] MEDS ORDERED: ondansetron/PF 4mg/2ml inj IV ONE (13:35)
[2022-07-09] MEDS ORDERED: magnesium 4gm in 100ml NS 100 ML IV PRN (13:55)
[2022-07-09] MEDS ORDERED: potassium Cl 40MEQ/1/2NS 520ml 520 ML IV PRN (13:55)
[2022-07-09] MEDS ORDERED: magnesium Cl slow-release 64mg tablet PO PRN (13:55)
[2022-07-09] MEDS ORDERED: acetaminophen 325mg tablet PO PRN (13:55)
[2022-07-09] MEDS ORDERED: niCARDipine-NS 40mg/200ml IVPB 200 ML IV SCH (13:55)
[2022-07-09] MEDS ORDERED: potassium Cl 20 mEq SR tablet PO PRN ×2 (13:55)
[2022-07-09] MEDS: normal saline 1000ml 1,000 ML IV SCH ×2 (14:30→20:35)
[2022-07-09 14:47] LABS: CLARITY,URINE CLOUDY (Clear); GLUCOSE, URINE NEGATIVE (Neg); KETONES,URINE TRACE mg/dl (Neg); LEUKOCYTE ESTERASE ,URINE NEGATIVE (Neg); NITRITES, URINE NEGATIVE (Neg); OCCULT BLOOD,URINE NEGATIVE (Neg); PROTEIN,URINE NEGATIVE (Neg); UROBILINOGEN,URINE 0.2 E.U/dL (0.2-1.0)
[2022-07-09 14:48] LABS: COLOR,URINE DARK YELLOW (Yellow); UA COLLECTION TYPE NON-SPECIFIED
[2022-07-09 14:48] LABS: ALBUMIN 3.8 G/DL (3.4-5.0); ANION GAP 13 (8-16); BLOOD UREA NITROGEN 98 MG/DL (7-18); BUN/CREATININE RATIO 18.5 (6.6-38.0); CHLORIDE 96 MMOL/L (99-107); CREATININE 5.29 MG/DL (0.40-0.90); GLUCOSE 119 MG/DL (70-104); POTASSIUM 4.9 MMOL/L (3.5-5.1); SODIUM 125 MMOL/L (135-145); TOTAL CARBON DIOXIDE 16.3 MMOL/L (24-32); eGFR 8 ML/MIN
[2022-07-09 14:53] LABS: BACTERIA,URINE 2+ /HPF (Neg); CAL OXALATE CRYSTALS FEW /HPF (NEGATIVE); MUCUS STRANDS MANY /LPF (Neg); RBC,URINE 0-2 /HPF (0-2); SQUAMOUS EPITHELIAL CELL,UR MANY /LPF (FEW); WBC,URINE 0-4 /HPF (0-4)
[2022-07-09 14:55] LABS: CALCIUM 9.7 MG/DL (8.5-10.1)
[2022-07-09] MEDS: nicotine 14mg patch - 24hr TD SCH (16:26)
[2022-07-09] MEDS: niCARDipine-NS 40mg/200ml IVPB 200 ML IV SCH ×2 (16:28→23:33)
[2022-07-09] MEDS: LORazepam 1 MG tablet PO PRN ×2 (16:30→23:18)
[2022-07-09] MEDS: heparin, porcine 5000 units/ml vial SQ SCH (20:00)
[2022-07-09] MEDS ORDERED: SODIUM BICARB 150mEq/D5W 1L 1,000 ML IV SCH (21:50)
[2022-07-09] MEDS ORDERED: topiramate 100mg tablet PO ONE (23:05)
[2022-07-09] MEDS: sodium bicarbonate (8.4%) inj. 150 MEQ in dextrose 5%-water 850 ML IV SCH (23:17)
[2022-07-09] MEDS ORDERED: mirtazapine 15mg tablet PO ONE (23:35)
[2022-07-09] MEDS ORDERED: OMEP20CA16 PO (23:46)
[2022-07-09] MEDS ORDERED: CITA40TA30 PO (23:46)
[2022-07-09] MEDS ORDERED: ASPI-1475 PO (23:46)
[2022-07-09] MEDS ORDERED: CHLO25TA10 PO (23:46)
[2022-07-09] MEDS ORDERED: LISI40TA13 PO (23:46)
[2022-07-09] MEDS ORDERED: NICO-630 TD (23:46)
[2022-07-09] MEDS ORDERED: LORA-268 PO (23:46)
[2022-07-09] MEDS ORDERED: AMLO2.5T5 PO (23:46)
[2022-07-09] MEDS ORDERED: HYDR-3964 PO (23:46)
[2022-07-09] MEDS ORDERED: HYDR-4069 PO (23:46)
[2022-07-10] VITALS (7 sets, daily range): BP systolic 136–166; BP diastolic 69–79
[2022-07-10] MEDS: ondansetron/PF 4mg/2ml inj IV PRN ×2 (01:03→19:10)
[2022-07-10 04:19] LABS: BASOPHILS % (AUTO) 0.7 % (0-1); EOSINOPHILS # (AUTO) 0.1 X10'3 (0-0.9); EOSINOPHILS % (AUTO) 2.6 % (0-6); HEMOGLOBIN 7.8 g/dl (12.0-16.0); LYMPHOCYTES # (AUTO) 1.3 X10'3 (1.1-4.8); LYMPHOCYTES % (AUTO) 23.1 % (21-51); MEAN CORPUSCULAR HEMOGLOBIN 30.6 PG (27.0-31.0); MEAN CORPUSCULAR HGB CONC 33.9 g/dL (33.0-36.5); MEAN CORPUSCULAR VOLUME 90.3 FL (78-98); MEAN PLATELET VOLUME 7.1 FL (7.4-10.4); MONOCYTES # (AUTO) 0.4 X10'3 (0-0.9); MONOCYTES % (AUTO) 6.8 % (2-12); NEUTROPHILS # (AUTO) 3.7 X10'3 (1.8-7.7); NEUTROPHILS % (AUTO) 66.8 % (42-75); PLATELET COUNT 197 X10'3 (140-440); RED BLOOD COUNT 2.55 X10'6 (4.20-5.60); RED CELL DISTRIBUTION WIDTH 15.1 % (11.5-14.5); WHITE BLOOD COUNT 5.6 X10'3 (4.5-11.0)
[2022-07-10 04:37] LABS: ALANINE AMINOTRANSFERASE 14 U/L (12-78); ALBUMIN/GLOBULIN RATIO 1.1 (1.1-1.5); ALKALINE PHOSPHATASE 93 IU/L (46-116); ANION GAP 11 (8-16); ASPARTATE AMINO TRANSFERASE 12 U/L (10-37); BILIRUBIN,TOTAL 0.2 MG/DL (0.1-1.0); BLOOD UREA NITROGEN 100 MG/DL (7-18); BUN/CREATININE RATIO 19.6 (6.6-38.0); CHLORIDE 96 MMOL/L (99-107); CREATININE 5.09 MG/DL (0.40-0.90); GLUCOSE 132 MG/DL (70-104); POTASSIUM 5.1 MMOL/L (3.5-5.1); SODIUM 126 MMOL/L (135-145); TOTAL CARBON DIOXIDE 19.5 MMOL/L (24-32); TOTAL PROTEIN 5.8 G/DL (6.4-8.2); eGFR 9 ML/MIN
[2022-07-10 04:42] LABS: CALCIUM 7.6 MG/DL (8.5-10.1)
--- NOTE | 2022-07-10 05:55 | NUR ---
Hemoglobin dropped from [address] Russell notified and ordered CBC to be redrawn.
[2022-07-10] MEDS: sodium bicarbonate (8.4%) inj. 150 MEQ in dextrose 5%-water 850 ML IV SCH ×3 (07:00→23:35)
[2022-07-10] MEDS: niCARDipine-NS 40mg/200ml IVPB 200 ML IV SCH (07:07)
--- NOTE | 2022-07-10 07:30 | NUR ---
report called to pcu
[2022-07-10 07:51] LABS: BASOPHILS % (AUTO) 0.7 % (0-1); EOSINOPHILS # (AUTO) 0.1 X10'3 (0-0.9); EOSINOPHILS % (AUTO) 2.7 % (0-6); HEMOGLOBIN 9.2 g/dl (12.0-16.0); LYMPHOCYTES % (AUTO) 19.6 % (21-51); MEAN CORPUSCULAR HEMOGLOBIN 30.7 PG (27.0-31.0); MEAN CORPUSCULAR HGB CONC 34.2 g/dL (33.0-36.5); MEAN CORPUSCULAR VOLUME 89.9 FL (78-98); MEAN PLATELET VOLUME 7.2 FL (7.4-10.4); MONOCYTES # (AUTO) 0.4 X10'3 (0-0.9); MONOCYTES % (AUTO) 6.9 % (2-12); NEUTROPHILS # (AUTO) 3.7 X10'3 (1.8-7.7); NEUTROPHILS % (AUTO) 70.1 % (42-75); PLATELET COUNT 235 X10'3 (140-440); RED CELL DISTRIBUTION WIDTH 15.1 % (11.5-14.5); WHITE BLOOD COUNT 5.3 X10'3 (4.5-11.0)
[2022-07-10] MEDS: heparin, porcine 5000 units/ml vial SQ SCH ×2 (10:34→20:56)
[2022-07-10] MEDS: nicotine 14mg patch - 24hr TD SCH (10:35)
[2022-07-10] MEDS ORDERED: LORazepam 0.5 MG tablet PO PRN (10:55)
[2022-07-10] MEDS ORDERED: nitroGLYCERIN 0.4mg/hour patch TD ONE (10:55)
[2022-07-10] MEDS: docusate sod 100mg capsule PO PRN (12:05)
[2022-07-10] MEDS: labetalol 100mg tablet PO SCH ×2 (12:05→20:57)
[2022-07-10] MEDS ORDERED: carBAMazepine Ext. Release 200 MG TAB.ER.12H PO SCH (13:00)
[2022-07-10] MEDS: amLODIPine 2.5mg tablet PO SCH (13:08)
[2022-07-10] MEDS: hydrALAZINE 25 MG tablet PO SCH ×2 (13:08→20:55)
[2022-07-10] MEDS: gabapentin 400mg capsule PO SCH ×2 (13:08→20:54)
[2022-07-10] MEDS ORDERED: LIDOcaine 2% 10ml TOPICAL JELLY (Urojet) TP ONE (14:40)
[2022-07-10 17:04] LABS: CLARITY,URINE SLIGHTLY CLOUDY (Clear); COLOR,URINE YELLOW (Yellow); GLUCOSE, URINE NEGATIVE (Neg); KETONES,URINE TRACE mg/dl (Neg); LEUKOCYTE ESTERASE ,URINE NEGATIVE (Neg); NITRITES, URINE NEGATIVE (Neg); OCCULT BLOOD,URINE NEGATIVE (Neg); PROTEIN,URINE NEGATIVE (Neg); UROBILINOGEN,URINE 0.2 E.U/dL (0.2-1.0)
[2022-07-10 17:24] LABS: UA COLLECTION TYPE NON-SPECIFIED
[2022-07-10 17:25] LABS: BACTERIA,URINE 2+ /HPF (Neg); MUCUS STRANDS FEW /LPF (Neg); RBC,URINE NONE SEEN /HPF (0-2); SQUAMOUS EPITHELIAL CELL,UR FEW /LPF (FEW); TOTAL PROTEIN,URINE RANDOM 46.7 MG/DL; WBC,URINE 0-4 /HPF (0-4)
[2022-07-10 17:26] LABS: HYALINE CASTS 0-3 /LPF (NEGATIVE)
--- NOTE | 2022-07-10 18:15 | NUR ---
Received report from Malathi GOMEZ.
[2022-07-10 18:28] LABS: UA EOSINOPHILS NO EOS /HPF
[2022-07-10] MEDS: SYMBICORT 160-4.5 MCG INHALER IH SCH (20:00)
[2022-07-10] MEDS: carBAMazepine 100mg chewable tablet PO SCH (20:54)
[2022-07-10] MEDS: mirtazapine 15mg tablet PO SCH (20:57)
[2022-07-10] MEDS: topiramate 100mg tablet PO SCH (20:58)
[2022-07-10] MEDS ORDERED: mirtazapine 15mg tablet PO ONE (21:00)
[2022-07-11] VITALS (9 sets, daily range): BP systolic 138–186; BP diastolic 67–92
--- NOTE | 2022-07-11 06:33 | NUR ---
Report to Hannah GOMEZ.
[2022-07-11 06:54] LABS: BASOPHILS % (AUTO) 0.5 % (0-1); EOSINOPHILS # (AUTO) 0.1 X10'3 (0-0.9); EOSINOPHILS % (AUTO) 2.4 % (0-6); HEMOGLOBIN 7.4 g/dl (12.0-16.0); LYMPHOCYTES # (AUTO) 0.9 X10'3 (1.1-4.8); LYMPHOCYTES % (AUTO) 15.2 % (21-51); MEAN CORPUSCULAR HEMOGLOBIN 31.1 PG (27.0-31.0); MEAN CORPUSCULAR HGB CONC 34.9 g/dL (33.0-36.5); MEAN CORPUSCULAR VOLUME 88.9 FL (78-98); MEAN PLATELET VOLUME 7.5 FL (7.4-10.4); MONOCYTES # (AUTO) 0.4 X10'3 (0-0.9); MONOCYTES % (AUTO) 6.5 % (2-12); NEUTROPHILS # (AUTO) 4.6 X10'3 (1.8-7.7); NEUTROPHILS % (AUTO) 75.4 % (42-75); PLATELET COUNT 186 X10'3 (140-440); RED BLOOD COUNT 2.38 X10'6 (4.20-5.60); RED CELL DISTRIBUTION WIDTH 14.9 % (11.5-14.5); WHITE BLOOD COUNT 6.1 X10'3 (4.5-11.0)
[2022-07-11 07:10] LABS: HEMATOCRIT 21.1 % (35.0-45.0)
[2022-07-11 07:11] LABS: ALANINE AMINOTRANSFERASE 18 U/L (12-78); ALBUMIN 2.9 G/DL (3.4-5.0); ALBUMIN/GLOBULIN RATIO 1.1 (1.1-1.5); ALKALINE PHOSPHATASE 83 IU/L (46-116); ANION GAP 6 (8-16); ASPARTATE AMINO TRANSFERASE 15 U/L (10-37); BILIRUBIN,TOTAL 0.2 MG/DL (0.1-1.0); BLOOD UREA NITROGEN 96 MG/DL (7-18); BUN/CREATININE RATIO 22.5 (6.6-38.0); CALCIUM 6.5 MG/DL (8.5-10.1); CHLORIDE 86 MMOL/L (99-107); CREATININE 4.27 MG/DL (0.40-0.90); GLUCOSE 133 MG/DL (70-104); POTASSIUM 4.8 MMOL/L (3.5-5.1); SODIUM 124 MMOL/L (135-145); TOTAL CARBON DIOXIDE 31.8 MMOL/L (24-32); TOTAL PROTEIN 5.6 G/DL (6.4-8.2); eGFR 11 ML/MIN
--- NOTE | 2022-07-11 07:12 | NUR ---
Paged Dr Hills" [facility] [id number]. Hgb 7.4, Hct 21.1. K+ & Na+ not resulted yet. Will continue to monitor. Dory 7082
[2022-07-11] MEDS: SYMBICORT 160-4.5 MCG INHALER IH SCH ×2 (08:00→20:10)
[2022-07-11] MEDS: ipratropium 0.5 MG/2.5ML nebule NEB SCH ×3 (08:00→20:10)
[2022-07-11] MEDS: sodium bicarbonate (8.4%) inj. 150 MEQ in dextrose 5%-water 850 ML IV SCH ×2 (08:17→16:04)
[2022-07-11] MEDS: citalopram 20mg tablet PO SCH (08:18)
[2022-07-11] MEDS: aspirin 81mg, enteric-coated 1 TAB TABLET.DR PO SCH (08:19)
[2022-07-11] MEDS: labetalol 100mg tablet PO SCH ×2 (08:19→19:05)
[2022-07-11] MEDS: amLODIPine 2.5mg tablet PO SCH (08:20)
[2022-07-11] MEDS: carBAMazepine 100mg chewable tablet PO SCH ×2 (08:20→20:00)
[2022-07-11] MEDS: heparin, porcine 5000 units/ml vial SQ SCH ×2 (08:21→19:06)
[2022-07-11] MEDS: nicotine 14mg patch - 24hr TD SCH ×2 (08:22→11:10)
[2022-07-11] MEDS: nicotine 7mg patch - 24hr TD SCH (08:22)
[2022-07-11] MEDS: levoTHYROXINE 125mcg tablet PO SCH (08:23)
[2022-07-11] MEDS: hydrALAZINE 25 MG tablet PO SCH ×2 (08:23→16:02)
[2022-07-11] MEDS: gabapentin 400mg capsule PO SCH ×2 (08:24→15:53)
[2022-07-11] MEDS: pantoprazole 40mg Tablet.DR PO SCH (08:24)
[2022-07-11] MEDS: ondansetron/PF 4mg/2ml inj IV PRN ×2 (08:50→17:45)
--- NOTE | 2022-07-11 10:37 | NUR ---
Noted pt low BMI 18.1 via chair scale in triage this admit per EMR. Pt w/ trace edema, mild weakness, and reports no wt loss hx per RN Malnutrition Screen. Noted last scaled wt hx 59.1kg chair scale 10/23/2019 w/ no other wt hx past 2.5 years; unsure current wt accuracy though pt is receiving IVF per EMR. BIJU recommends updated scaled wt this admit; notified. Pt lacks minimum malnutrition criteria at this time. Addendum: 07/11/22 at [address] Amended: Links added.
--- NOTE | 2022-07-11 17:57 | NUR ---
Paged Dr Hills: Boris [id number]. Pt BP 186/92, MAP 135, HR 93. Pt endorses nausea. Hydralazine 25mg given at 1602. No PRN hydralazine ordered IV. Gave Zofran. Please advise. Dory 5853
[2022-07-11] MEDS: niCARDipine-NS 40mg/200ml IVPB 200 ML IV SCH (18:00)
[2022-07-11] MEDS: hydrALAZINE 20mg/ml inj. IV PRN (18:19)
[2022-07-11] MEDS: LORazepam 1 MG tablet PO PRN (18:57)
[2022-07-11] MEDS: mirtazapine 15mg tablet PO SCH (19:05)
[2022-07-11] MEDS: topiramate 100mg tablet PO SCH (19:05)
[2022-07-12] MEDS: sodium bicarbonate (8.4%) inj. 150 MEQ in dextrose 5%-water 850 ML IV SCH (01:13)
[2022-07-12 02:00] VITALS: BP 151/89
[2022-07-12] MEDS: ipratropium 0.5 MG/2.5ML nebule NEB SCH ×4 (02:30→20:32)
[2022-07-12 06:13] LABS: BASOPHILS % (AUTO) 0.4 % (0-1); EOSINOPHILS # (AUTO) 0.1 X10'3 (0-0.9); EOSINOPHILS % (AUTO) 0.9 % (0-6); HEMOGLOBIN 7.3 g/dl (12.0-16.0); LYMPHOCYTES # (AUTO) 0.7 X10'3 (1.1-4.8); LYMPHOCYTES % (AUTO) 10.2 % (21-51); MEAN CORPUSCULAR HEMOGLOBIN 30.7 PG (27.0-31.0); MEAN CORPUSCULAR HGB CONC 34.4 g/dL (33.0-36.5); MEAN CORPUSCULAR VOLUME 89.2 FL (78-98); MEAN PLATELET VOLUME 7.8 FL (7.4-10.4); MONOCYTES # (AUTO) 0.4 X10'3 (0-0.9); MONOCYTES % (AUTO) 5.9 % (2-12); NEUTROPHILS # (AUTO) 5.4 X10'3 (1.8-7.7); NEUTROPHILS % (AUTO) 82.6 % (42-75); PLATELET COUNT 185 X10'3 (140-440); RED BLOOD COUNT 2.37 X10'6 (4.20-5.60); RED CELL DISTRIBUTION WIDTH 14.9 % (11.5-14.5); WHITE BLOOD COUNT 6.5 X10'3 (4.5-11.0)
[2022-07-12 06:20] LABS: ALANINE AMINOTRANSFERASE 16 U/L (12-78); ALBUMIN 2.7 G/DL (3.4-5.0); ALKALINE PHOSPHATASE 89 IU/L (46-116); ANION GAP 0 (8-16); ASPARTATE AMINO TRANSFERASE 16 U/L (10-37); BILIRUBIN,TOTAL 0.2 MG/DL (0.1-1.0); BLOOD UREA NITROGEN 82 MG/DL (7-18); CHLORIDE 83 MMOL/L (99-107); CREATININE 3.57 MG/DL (0.40-0.90); GLUCOSE 159 MG/DL (70-104); POTASSIUM 4.3 MMOL/L (3.5-5.1); SODIUM 123 MMOL/L (135-145); TOTAL CARBON DIOXIDE 39.6 MMOL/L (24-32); TOTAL PROTEIN 5.4 G/DL (6.4-8.2); eGFR 13 ML/MIN
[2022-07-12 06:40] LABS: HEMATOCRIT 21.2 % (35.0-45.0)
[2022-07-12 06:47] LABS: CALCIUM 5.8 MG/DL (8.5-10.1)
[2022-07-12 07:00] VITALS: BP 109/56
[2022-07-12] MEDS: carBAMazepine 100mg chewable tablet PO SCH ×2 (07:51→19:29)
[2022-07-12] MEDS: aspirin 81mg, enteric-coated 1 TAB TABLET.DR PO SCH (07:51)
[2022-07-12] MEDS: labetalol 100mg tablet PO SCH ×2 (07:52→19:28)
[2022-07-12] MEDS: levoTHYROXINE 125mcg tablet PO SCH (07:52)
[2022-07-12] MEDS: gabapentin 100mg capsule PO SCH (07:52)
[2022-07-12] MEDS: hydrALAZINE 25 MG tablet PO SCH ×4 (07:52→23:55)
[2022-07-12] MEDS: citalopram 20mg tablet PO SCH (07:53)
[2022-07-12] MEDS: pantoprazole 40mg Tablet.DR PO SCH (07:53)
[2022-07-12] MEDS: amLODIPine 2.5mg tablet PO SCH (07:53)
[2022-07-12] MEDS: heparin, porcine 5000 units/ml vial SQ SCH ×2 (07:53→19:28)
[2022-07-12] MEDS: nicotine 7mg patch - 24hr TD SCH (07:55)
[2022-07-12] MEDS ORDERED: EPOETIN ALFA-EPBX 20,000 UNIT/ML 1 ML MDV SQ ONE (08:00)
[2022-07-12] MEDS: proCHLORperazine 10 MG/2 ml inj IV PRN (08:00)
[2022-07-12] MEDS: nicotine 14mg patch - 24hr TD SCH (08:00)
[2022-07-12 09:04] LABS: FERRITIN 157 NG/ML (8-252)
[2022-07-12] MEDS: SYMBICORT 160-4.5 MCG INHALER IH SCH (09:12)
[2022-07-12 09:28] LABS: % IRON SATURATION 28 % (11-46); IRON 51 UG/DL (49-151); TOTAL IRON BINDING CAPACITY 184 UG/DL (259-388)
--- NOTE | 2022-07-12 09:42 | NUR ---
Pt because nauseated after her svn tx, RNCathy notified. RN states pt has been nauseated most of the morning. Will possibly hold afternoon svn due to it potentially making nausea worse.
[2022-07-12] MEDS ORDERED: furosemide 40mg/4ml inj IV ONE ×3 (12:23→18:10)
[2022-07-12 15:00] VITALS: BP 192/95
[2022-07-12 15:09] LABS: ALBUMIN 2.9 g/dL (2.9-4.4); BETA GLOBULIN 0.8 g/dL (0.7-1.3); GAMMA GLOBULIN 1.2 g/dL (0.4-1.8); GLOBULIN, TOTAL 2.8 g/dL (2.2-3.9); M-SPIKE Not Observed g/dL (Not Observed); PROTEIN, TOTAL, SERUM 5.7 g/dL (6.0-8.5)
[2022-07-12] MEDS: hydrALAZINE 20mg/ml inj. IV PRN (15:42)
[2022-07-12] MEDS: LORazepam 2 mg/ml vial IV PRN (15:42)
[2022-07-12 15:51] VITALS: BP 125/91
[2022-07-12] MEDS: calcium carbonate 500mg tablet PO SCH (17:50)
[2022-07-12] MEDS ORDERED: hydrALAZINE 20mg/ml inj. IV ONE (18:10)
[2022-07-12] MEDS ORDERED: albuterol 2.5 MG/3 ML nebule NEB STA (18:10)
--- NOTE | 2022-07-12 19:21 | NUR ---
0800 -- Pt nauseated and vomiting. compazine given per prn order. Rn requested pharmacy bring medication. 1500 -- RN saw that pharmacy requested "fax" be sent for medication. 1700 -- Pt hypertensive. PRN hydralazine given, ativan and scheduled hydralazine given. Hills stopped bicarb. 1800 -- Rn paged Hills. Pt wheezing, 93% on 4L, hypertensive w/ SBP 190s. RN requested order for Lasix, breathing treatment, and additional IVP hydralazine. See new orders. 1829 -- RN spoke to pharmacy about epoetin alpha on the telephone and requested it be sent tonight so it can be given on nightshift. They stated it would be made and brought up. Dayshift RN gave report to nightshift rn. NS RN aware of htn and increasing O2 needs. Nightshift RN to recheck BP post hydralazine. 1929 -- Pharmacy called and told RN that the order is for a one time dose, but is scheduled for MWF. They needed clarification on the order. RN informed the pharmacy service associate that she was never told anything by nephrology and that there is nothing regarding this in his notes. Pharmacy does not want to bring up without clarification tomorrow.
[2022-07-12] MEDS: mirtazapine 15mg tablet PO SCH (19:29)
[2022-07-12] MEDS: topiramate 100mg tablet PO SCH (19:29)
[2022-07-12] MEDS: budesonide 0.5mg/2ml UD nebule IH SCH (20:32)
[2022-07-12 21:15] VITALS: BP 136/71
[2022-07-13] VITALS (8 sets, daily range): BP systolic 116–207; BP diastolic 66–103
[2022-07-13] MEDS: ipratropium 0.5 MG/2.5ML nebule NEB SCH ×4 (02:00→19:57)
--- NOTE | 2022-07-13 05:46 | NUR ---
Pt BPs managed w/PO meds. Pt A/O x 3-4, pulling on leads and NC while sleeping.
[2022-07-13 06:05] LABS: BASOPHILS % (AUTO) 0.1 % (0-1); EOSINOPHILS % (AUTO) 0.1 % (0-6); HEMATOCRIT 24.6 % (35.0-45.0); HEMOGLOBIN 8.1 g/dl (12.0-16.0); LYMPHOCYTES # (AUTO) 0.5 X10'3 (1.1-4.8); LYMPHOCYTES % (AUTO) 4.2 % (21-51); MEAN CORPUSCULAR HEMOGLOBIN 29.4 PG (27.0-31.0); MEAN CORPUSCULAR HGB CONC 32.8 g/dL (33.0-36.5); MEAN CORPUSCULAR VOLUME 89.4 FL (78-98); MEAN PLATELET VOLUME 8.4 FL (7.4-10.4); MONOCYTES # (AUTO) 0.4 X10'3 (0-0.9); MONOCYTES % (AUTO) 3.7 % (2-12); NEUTROPHILS # (AUTO) 10.6 X10'3 (1.8-7.7); NEUTROPHILS % (AUTO) 91.9 % (42-75); PLATELET COUNT 221 X10'3 (140-440); RED BLOOD COUNT 2.75 X10'6 (4.20-5.60); RED CELL DISTRIBUTION WIDTH 14.8 % (11.5-14.5); WHITE BLOOD COUNT 11.5 X10'3 (4.5-11.0)
[2022-07-13 06:33] LABS: ALANINE AMINOTRANSFERASE 23 U/L (12-78); ALBUMIN 3.5 G/DL (3.4-5.0); ALKALINE PHOSPHATASE 113 IU/L (46-116); ANION GAP 6 (8-16); ASPARTATE AMINO TRANSFERASE 32 U/L (10-37); BILIRUBIN,TOTAL 0.4 MG/DL (0.1-1.0); BLOOD UREA NITROGEN 76 MG/DL (7-18); BUN/CREATININE RATIO 22.2 (6.6-38.0); CALCIUM 6.2 MG/DL (8.5-10.1); CHLORIDE 78 MMOL/L (99-107); CREATININE 3.42 MG/DL (0.40-0.90); GLUCOSE 170 MG/DL (70-104); POTASSIUM 4.3 MMOL/L (3.5-5.1); SODIUM 121 MMOL/L (135-145); TOTAL CARBON DIOXIDE 37.2 MMOL/L (24-32); eGFR 14 ML/MIN
[2022-07-13] MEDS: nicotine 7mg patch - 24hr TD SCH (08:00)
[2022-07-13] MEDS: budesonide 0.5mg/2ml UD nebule IH SCH ×2 (08:24→19:57)
[2022-07-13] MEDS: LORazepam 2 mg/ml vial IV PRN ×2 (08:44→18:01)
[2022-07-13] MEDS: carBAMazepine 100mg chewable tablet PO SCH ×2 (08:56→19:36)
[2022-07-13] MEDS: labetalol 100mg tablet PO SCH ×2 (08:57→19:34)
[2022-07-13] MEDS: levoTHYROXINE 125mcg tablet PO SCH (08:57)
[2022-07-13] MEDS: aspirin 81mg, enteric-coated 1 TAB TABLET.DR PO SCH (08:57)
[2022-07-13] MEDS: citalopram 20mg tablet PO SCH (08:57)
[2022-07-13] MEDS: calcium carbonate 500mg tablet PO SCH ×3 (08:57→17:52)
[2022-07-13] MEDS: amLODIPine 2.5mg tablet PO SCH (08:58)
[2022-07-13] MEDS: hydrALAZINE 25 MG tablet PO SCH ×3 (08:58→23:11)
[2022-07-13] MEDS: gabapentin 100mg capsule PO SCH (08:58)
[2022-07-13] MEDS: pantoprazole 40mg Tablet.DR PO SCH (08:58)
[2022-07-13] MEDS: nicotine 14mg patch - 24hr TD SCH (08:59)
[2022-07-13] MEDS: heparin, porcine 5000 units/ml vial SQ SCH ×2 (08:59→19:36)
[2022-07-13] MEDS: docusate sod 100mg capsule PO PRN (13:15)
[2022-07-13] MEDS: mirtazapine 15mg tablet PO SCH (19:35)
[2022-07-13] MEDS: temazepam 15mg capsule PO PRN (19:35)
[2022-07-13] MEDS: topiramate 100mg tablet PO SCH (21:00)
[2022-07-14] VITALS (12 sets, daily range): BP systolic 131–203; BP diastolic 69–96
[2022-07-14] MEDS: hydrALAZINE 20mg/ml inj. IV PRN ×2 (01:10→12:16)
[2022-07-14] MEDS: LORazepam 2 mg/ml vial IV PRN ×2 (01:21→07:40)
[2022-07-14] MEDS: ipratropium 0.5 MG/2.5ML nebule NEB SCH ×4 (02:35→20:23)
[2022-07-14] MEDS: proCHLORperazine 10 MG/2 ml inj IV PRN (06:44)
[2022-07-14] MEDS: carBAMazepine 100mg chewable tablet PO SCH ×2 (07:18→20:38)
[2022-07-14] MEDS: labetalol 100mg tablet PO SCH ×2 (07:18→20:37)
[2022-07-14] MEDS: hydrALAZINE 25 MG tablet PO SCH ×2 (07:19→16:02)
[2022-07-14] MEDS: heparin, porcine 5000 units/ml vial SQ SCH ×2 (07:20→20:00)
[2022-07-14] MEDS: levoTHYROXINE 125mcg tablet PO SCH (07:20)
[2022-07-14] MEDS: aspirin 81mg, enteric-coated 1 TAB TABLET.DR PO SCH (07:20)
[2022-07-14] MEDS: gabapentin 100mg capsule PO SCH (07:21)
[2022-07-14] MEDS: citalopram 20mg tablet PO SCH (07:21)
[2022-07-14] MEDS: amLODIPine 2.5mg tablet PO SCH (07:21)
[2022-07-14] MEDS: pantoprazole 40mg Tablet.DR PO SCH (07:21)
[2022-07-14] MEDS: nicotine 14mg patch - 24hr TD SCH (07:27)
[2022-07-14] MEDS: budesonide 0.5mg/2ml UD nebule IH SCH ×2 (07:37→20:23)
[2022-07-14 07:39] LABS: BASOPHILS % (AUTO) 0 % (0-1); EOSINOPHILS % (AUTO) 0 % (0-6); HEMATOCRIT 22.5 % (35.0-45.0); HEMOGLOBIN 7.8 g/dl (12.0-16.0); LYMPHOCYTES # (AUTO) 0.6 X10'3 (1.1-4.8); LYMPHOCYTES % (AUTO) 4.1 % (21-51); MEAN CORPUSCULAR HEMOGLOBIN 31.2 PG (27.0-31.0); MEAN CORPUSCULAR HGB CONC 34.7 g/dL (33.0-36.5); MEAN CORPUSCULAR VOLUME 89.7 FL (78-98); MEAN PLATELET VOLUME 8.7 FL (7.4-10.4); MONOCYTES # (AUTO) 0.5 X10'3 (0-0.9); MONOCYTES % (AUTO) 3.4 % (2-12); NEUTROPHILS # (AUTO) 14.6 X10'3 (1.8-7.7); NEUTROPHILS % (AUTO) 92.5 % (42-75); PLATELET COUNT 216 X10'3 (140-440); RED BLOOD COUNT 2.51 X10'6 (4.20-5.60); RED CELL DISTRIBUTION WIDTH 14.8 % (11.5-14.5); WHITE BLOOD COUNT 15.8 X10'3 (4.5-11.0)
[2022-07-14] MEDS: EPOETIN ALFA-EPBX 20,000 UNIT/ML 1 ML MDV SQ SCH (08:00)
[2022-07-14] MEDS ORDERED: EPOETIN ALFA-EPBX 20,000 UNIT/ML 1 ML MDV SQ ONE (08:00)
[2022-07-14] MEDS: nicotine 7mg patch - 24hr TD SCH (08:00)
[2022-07-14 08:02] LABS: GLUCOSE 170 MG/DL (70-104)
[2022-07-14 08:03] LABS: ALANINE AMINOTRANSFERASE 28 U/L (12-78); ALBUMIN 3.3 G/DL (3.4-5.0); ALBUMIN/GLOBULIN RATIO 0.9 (1.1-1.5); ALKALINE PHOSPHATASE 108 IU/L (46-116); ANION GAP 9 (8-16); ASPARTATE AMINO TRANSFERASE 38 U/L (10-37); BILIRUBIN,TOTAL 0.5 MG/DL (0.1-1.0); BLOOD UREA NITROGEN 88 MG/DL (7-18); BUN/CREATININE RATIO 21.6 (6.6-38.0); CALCIUM 6.4 MG/DL (8.5-10.1); CHLORIDE 76 MMOL/L (99-107); CREATININE 4.07 MG/DL (0.40-0.90); POTASSIUM 4.7 MMOL/L (3.5-5.1); SODIUM 121 MMOL/L (135-145); TOTAL CARBON DIOXIDE 35.7 MMOL/L (24-32); eGFR 11 ML/MIN
[2022-07-14] MEDS: calcium carbonate 500mg tablet PO SCH ×3 (08:30→17:30)
--- NOTE | 2022-07-14 09:26 | NUR ---
PAGER ID: [phone] MESSAGE: Boris [phone], Pt is scheduled for renal study this morning. Could I put in an order for a one time Ativan for the procedure? [place] 9983
[2022-07-14] MEDS ORDERED: LORazepam 2 mg/ml vial IV ONE (09:50)
--- NOTE | 2022-07-14 12:34 | NUR ---
Initial: Pt admit for hypertensive urgency, EMETERIO with underlying CKD, and hyponatremia. Per EMR pt not receiving dialysis at this time and pt remains hyponatremic. Pt on a heart healthy diet and eating poorly overall, documented with 50% PO intake of 6 meals and 0% PO intake of 4 meals since admit. Pt currently documented as NPO. Recommend diet liberalization to regular in view of poor meal acceptance with hyponatremia, diet restriction to renal would be appropriate should PO intake improve and electrolyses become elevated. LBM 07/12, receiving PRN bowel care. No appropriate nutrition intervention at this time in view of NPO status. Will continue to follow closely. Recommendations: 1) Diet liberalization to regular; renal diet restriction if PO intake improves and electrolyes become elevated 2) Consider ONS with diet resumption, currently NP0 3) Routine bowel care 4) Weekly scaled weights Addendum: 07/14/22 at [address] Amended: Links added.
[2022-07-14 13:16] LABS: HBSAG SCREEN Negative (Negative); HEP B CORE AB, TOT Negative (Negative)
[2022-07-14] MEDS ORDERED: fentaNYL/PF 50MCG/1 ML 2ML syringe ONE (13:42)
[2022-07-14] MEDS ORDERED: diphenhydrAMINE 50 mg/ml inj ONE (13:42)
[2022-07-14] MEDS ORDERED: heparin 1,000 UNITS/NS 500ml 500 ML ONE (13:45)
[2022-07-14] MEDS ORDERED: iohexol 300mg/ml 100ml inj. ONE (13:45)
--- NOTE | 2022-07-14 15:02 | NUR ---
Paged RT [phone]. Boris. req breathing tx. Thanks
--- NOTE | 2022-07-14 16:52 | NUR ---
PAGER ID: [phone] MESSAGE: Boris [id number], Pt is on two nicotine patches, a 7 and a 14mg order. Did you want to have one of them DC'd?
[2022-07-14] MEDS: mirtazapine 15mg tablet PO SCH (20:37)
[2022-07-14] MEDS: LORazepam 1 MG tablet PO PRN (20:37)
[2022-07-14] MEDS: topiramate 100mg tablet PO SCH (21:04)
[2022-07-15] VITALS (14 sets, daily range): BP systolic 106–211; BP diastolic 52–99
[2022-07-15] MEDS: hydrALAZINE 25 MG tablet PO SCH ×4 (00:37→23:34)
[2022-07-15] MEDS: ipratropium 0.5 MG/2.5ML nebule NEB SCH ×4 (01:55→14:52)
[2022-07-15] MEDS: hydrALAZINE 20mg/ml inj. IV PRN (04:16)
[2022-07-15 04:24] LABS: ABG BASE EXCESS 4.7 mmol/L (-2.0-2.0); ABG HCO3 29.8 mmol/L (22.0-26.0); ABG OXYGEN SATURATION 99.7 % (94-97); ABG PCO2 (T) 45.9 mmHg (32.0-45.0); ABG PO2 (T) 327.7 mmHg (75.0-100.0); ALLEN'S TEST POSITIVE; FCOHb 0.4 % (0.0-3.9); FLOW 15 L/min; FMetHb 0.3 % (0.0-1.5); PATIENT TEMPERATURE 36.4; TOTAL HEMOGLOBIN 8.2 G/dl (12.0-16.0)
--- NOTE | 2022-07-15 04:35 | NUR ---
Rapid response was called at aprox. 0400. Patient was in "tripod" position o2 sats at 78% with altered mental status. Blood pressure was 204/80. Gave PRN Hydralazine 10 mg was given, patient placed on non-rebreather to improve 02 sats. Obtained ABG, labs chest x-ray per ACLS RN direction. Dr. Barth called, awaiting orders.
[2022-07-15] MEDS ORDERED: levoFLOXACIN-Levaquin 500mg/D5 100 ML IV ONE (04:40)
[2022-07-15 04:45] LABS: BASOPHILS % (AUTO) 0 % (0-1); EOSINOPHILS % (AUTO) 0.1 % (0-6); HEMOGLOBIN 7.3 g/dl (12.0-16.0); LYMPHOCYTES # (AUTO) 0.5 X10'3 (1.1-4.8); LYMPHOCYTES % (AUTO) 3.5 % (21-51); MEAN CORPUSCULAR HEMOGLOBIN 30.9 PG (27.0-31.0); MEAN CORPUSCULAR HGB CONC 34.3 g/dL (33.0-36.5); MEAN CORPUSCULAR VOLUME 89.9 FL (78-98); MEAN PLATELET VOLUME 8.2 FL (7.4-10.4); MONOCYTES # (AUTO) 0.4 X10'3 (0-0.9); MONOCYTES % (AUTO) 2.7 % (2-12); NEUTROPHILS # (AUTO) 12.5 X10'3 (1.8-7.7); NEUTROPHILS % (AUTO) 93.7 % (42-75); PLATELET COUNT 208 X10'3 (140-440); RED BLOOD COUNT 2.37 X10'6 (4.20-5.60); WHITE BLOOD COUNT 13.4 X10'3 (4.5-11.0)
[2022-07-15 04:50] LABS: HEMATOCRIT 21.3 % (35.0-45.0)
--- NOTE | 2022-07-15 04:59 | NUR ---
placed patient back on non rebreather, sats dropped to 88 on 4 L
[2022-07-15 05:04] LABS: ALBUMIN 3.2 G/DL (3.4-5.0); ANION GAP 13 (8-16); BLOOD UREA NITROGEN 91 MG/DL (7-18); BUN/CREATININE RATIO 22.2 (6.6-38.0); CHLORIDE 77 MMOL/L (99-107); GLUCOSE 106 MG/DL (70-104); POTASSIUM 4.8 MMOL/L (3.5-5.1); SODIUM 122 MMOL/L (135-145); eGFR 11 ML/MIN
[2022-07-15 05:05] LABS: CALCIUM 5.9 MG/DL (8.5-10.1)
[2022-07-15] MEDS: amLODIPine 5mg tablet PO SCH ×2 (05:14→07:42)
[2022-07-15] MEDS: LORazepam 1 MG tablet PO PRN ×3 (06:08→20:29)
--- NOTE | 2022-07-15 07:14 | NUR ---
Patient in room PCU 3028D. I have received report from Donna GOMEZ and had the opportunity to ask questions and assume patient care. Pt is sitting high fowlers in bed. Pt is breathing within normal limits. Pt on 5L NC. No s/s of distress at this time. Pt declines c/o pain. BLL, call light within reach, frequently used itmes in reach, frequent rounding, fall intern socks on. Will continue to montior.
[2022-07-15] MEDS: aspirin 81mg, enteric-coated 1 TAB TABLET.DR PO SCH (07:40)
[2022-07-15] MEDS: pantoprazole 40mg Tablet.DR PO SCH (07:40)
[2022-07-15] MEDS: calcium carbonate 500mg tablet PO SCH ×2 (07:40→21:10)
[2022-07-15] MEDS: citalopram 20mg tablet PO SCH (07:40)
[2022-07-15] MEDS: levoTHYROXINE 125mcg tablet PO SCH (07:41)
[2022-07-15] MEDS: labetalol 100mg tablet PO SCH ×2 (07:41→21:10)
[2022-07-15] MEDS: gabapentin 100mg capsule PO SCH (07:41)
[2022-07-15] MEDS: carBAMazepine 100mg chewable tablet PO SCH ×2 (07:42→21:09)
[2022-07-15] MEDS: heparin, porcine 5000 units/ml vial SQ SCH ×2 (07:43→21:11)
[2022-07-15] MEDS: nicotine 14mg patch - 24hr TD SCH (07:45)
[2022-07-15] MEDS: nicotine 7mg patch - 24hr TD SCH (08:00)
[2022-07-15] MEDS: budesonide 0.5mg/2ml UD nebule IH SCH ×2 (08:36→20:49)
[2022-07-15] MEDS ORDERED: cefepime 1GM/NS ADD-VANTAGE 100 ML IV SCH ×2 (09:20→10:00)
--- NOTE | 2022-07-15 09:32 | NUR ---
ORDERS TO CHANGE HYDRALAZINE 25MG PO TO 50MG HYDRALAZINE PO PER DR. CHILEL.
[2022-07-15] MEDS ORDERED: calcium chloride 100 MG/1 ML inj IV ONE (13:35)
[2022-07-15] MEDS ORDERED: calcium chloride inj. 1,000 MG in normal saline 100ml IV soln 90 ML IV ONE (13:55)
[2022-07-15] MEDS: acetaminophen 325mg tablet PO PRN (14:13)
--- NOTE | 2022-07-15 15:15 | NUR ---
Pt received a respiratory treatment of Atrovent ans pt appears to have had adverse reaction, pt became unresponsive for close to two minutes. BP was 179/96 hr 73 and desaturated to 84%. pt is awake A/0 x3 on 15L non rebreather saturating at 100%. made aware. Similar response to same med this AM. as well. Bindu GOMEZ made aware as well following lunch break.
--- NOTE | 2022-07-15 15:42 | NUR ---
RT Chano P Notified both atrovent allergy and Rt to admin spiriva and symbacort from home per MD orders. Daughter aware ans will bring in.
--- NOTE | 2022-07-15 18:43 | NUR ---
Problems reprioritized. Patient report given, questions answered & plan of care reviewed with Donna GOMEZ.
[2022-07-15] MEDS ORDERED: furosemide 20 MG/2 ML vial IV ONE (20:40)
--- NOTE | 2022-07-15 20:54 | NUR ---
CALLED BEDSIDE, RESP DISRTESS. B/S MUSICAL WITH FINE CRACKLES. SEVERE SOB ON 5L N/C. PLACED ON 50% VENTI MASK - SOB MILD. SUGGESTED ATIVAN, LASIX AND BIPAP PRN. RN AWARE AND IN CONTACT WITH
[2022-07-15] MEDS: mirtazapine 15mg tablet PO SCH (21:09)
[2022-07-15] MEDS: topiramate 100mg tablet PO SCH (21:10)
[2022-07-16] VITALS (11 sets, daily range): BP systolic 135–201; BP diastolic 62–87
[2022-07-16] MEDS: hydrALAZINE 20mg/ml inj. IV PRN ×3 (02:23→22:18)
[2022-07-16] MEDS: LORazepam 2 mg/ml vial IV PRN ×3 (05:12→22:08)
[2022-07-16] MEDS: nicotine 14mg patch - 24hr TD SCH ×2 (08:00→08:24)
[2022-07-16] MEDS: labetalol 100mg tablet PO SCH ×2 (08:03→21:03)
[2022-07-16] MEDS: LORazepam 1 MG tablet PO PRN ×2 (08:03→16:12)
[2022-07-16] MEDS: citalopram 20mg tablet PO SCH (08:04)
[2022-07-16] MEDS: levoTHYROXINE 125mcg tablet PO SCH (08:04)
[2022-07-16] MEDS: aspirin 81mg, enteric-coated 1 TAB TABLET.DR PO SCH (08:04)
[2022-07-16] MEDS: pantoprazole 40mg Tablet.DR PO SCH (08:04)
[2022-07-16] MEDS: carBAMazepine 100mg chewable tablet PO SCH ×2 (08:04→21:05)
[2022-07-16] MEDS: calcium carbonate 500mg tablet PO SCH ×2 (08:04→21:05)
[2022-07-16] MEDS: gabapentin 100mg capsule PO SCH (08:04)
[2022-07-16] MEDS: amLODIPine 5mg tablet PO SCH (08:04)
[2022-07-16] MEDS: heparin, porcine 5000 units/ml vial SQ SCH ×2 (08:05→21:04)
[2022-07-16] MEDS: hydrALAZINE 25 MG tablet PO SCH ×2 (08:05→16:12)
[2022-07-16] MEDS: nicotine 7mg patch - 24hr TD SCH (08:24)
[2022-07-16] MEDS: budesonide 0.5mg/2ml UD nebule IH SCH ×2 (08:45→19:42)
--- NOTE | 2022-07-16 09:34 | NUR ---
paged Dr. Hills re: Do you want labs on pt? yesterday hematocrit was critical.
[2022-07-16] MEDS: CEFEPIME IV SCH (10:18)
[2022-07-16] MEDS: NORMAL SALINE IV SCH (10:18)
[2022-07-16] MEDS ORDERED: methylPREDNISolone sod succ 125mg/2ml vial IV ONE (11:20)
[2022-07-16 11:46] LABS: BASOPHILS % (AUTO) 0 % (0-1); EOSINOPHILS % (AUTO) 0.1 % (0-6); LYMPHOCYTES # (AUTO) 0.5 X10'3 (1.1-4.8); LYMPHOCYTES % (AUTO) 4.8 % (21-51); MEAN CORPUSCULAR HGB CONC 34.7 g/dL (33.0-36.5); MEAN CORPUSCULAR VOLUME 89.5 FL (78-98); MEAN PLATELET VOLUME 8.4 FL (7.4-10.4); MONOCYTES # (AUTO) 0.4 X10'3 (0-0.9); MONOCYTES % (AUTO) 4.3 % (2-12); NEUTROPHILS # (AUTO) 8.6 X10'3 (1.8-7.7); NEUTROPHILS % (AUTO) 90.8 % (42-75); PLATELET COUNT 212 X10'3 (140-440); RED BLOOD COUNT 2.15 X10'6 (4.20-5.60); RED CELL DISTRIBUTION WIDTH 14.7 % (11.5-14.5); WHITE BLOOD COUNT 9.5 X10'3 (4.5-11.0)
[2022-07-16 11:49] LABS: HEMATOCRIT 19.3 % (35.0-45.0); HEMOGLOBIN 6.7 g/dl (12.0-16.0)
[2022-07-16] MEDS ORDERED: TIOT4MIS5 PO (11:50)
--- NOTE | 2022-07-16 11:51 | NUR ---
paged Dr. Hills re:Critical H/H. Hgb 6.7, Hct 19.3
[2022-07-16 11:57] LABS: ALANINE AMINOTRANSFERASE 30 U/L (12-78); ALBUMIN 2.6 G/DL (3.4-5.0); ALBUMIN/GLOBULIN RATIO 0.8 (1.1-1.5); ALKALINE PHOSPHATASE 87 IU/L (46-116); ANION GAP 12 (8-16); ASPARTATE AMINO TRANSFERASE 37 U/L (10-37); BILIRUBIN,TOTAL 0.5 MG/DL (0.1-1.0); BLOOD UREA NITROGEN 96 MG/DL (7-18); BUN/CREATININE RATIO 19.4 (6.6-38.0); CALCIUM 6.2 MG/DL (8.5-10.1); CHLORIDE 77 MMOL/L (99-107); CREATININE 4.95 MG/DL (0.40-0.90); GLUCOSE 73 MG/DL (70-104); POTASSIUM 4.6 MMOL/L (3.5-5.1); TOTAL CARBON DIOXIDE 29.6 MMOL/L (24-32); eGFR 9 ML/MIN
[2022-07-16 12:00] LABS: SODIUM 119 MMOL/L (135-145)
--- NOTE | 2022-07-16 12:02 | NUR ---
paged Dr. Hills re: Critical sodium of 119. yesterday was 122.
[2022-07-16 16:06] LABS: OSMOLALITY UA 276 MOSM/K (50-1400); SODIUM,URINE RANDOM 41 MEQ/L
[2022-07-16] MEDS ORDERED: furosemide 40mg/4ml inj IV ONE (17:00)
[2022-07-16] MEDS: topiramate 100mg tablet PO SCH (21:05)
[2022-07-16] MEDS: mirtazapine 15mg tablet PO SCH (21:11)
[2022-07-16] MEDS: methylPREDNISolone sod succ 125mg/2ml vial IV SCH (21:11)
[2022-07-16] MEDS: acetaminophen 325mg tablet PO PRN (21:24)
[2022-07-17] VITALS (7 sets, daily range): BP systolic 153–189; BP diastolic 74–82
[2022-07-17] MEDS: hydrALAZINE 25 MG tablet PO SCH ×4 (00:54→16:59)
--- NOTE | 2022-07-17 01:15 | NUR ---
patient refusing to take PO hydralazine. Spit out med.
--- NOTE | 2022-07-17 06:09 | NUR ---
patient's has increased confusion. resting at this time. Awaiting labs.
[2022-07-17 06:14] LABS: ALBUMIN 2.7 G/DL (3.4-5.0); ANION GAP 16 (8-16); BLOOD UREA NITROGEN 98 MG/DL (7-18); BUN/CREATININE RATIO 19.3 (6.6-38.0); CALCIUM 6.4 MG/DL (8.5-10.1); CHLORIDE 75 MMOL/L (99-107); CREATININE 5.08 MG/DL (0.40-0.90); GLUCOSE 85 MG/DL (70-104); POTASSIUM 4.7 MMOL/L (3.5-5.1); TOTAL CARBON DIOXIDE 26.2 MMOL/L (24-32); eGFR 9 ML/MIN
[2022-07-17 06:16] LABS: SODIUM 117 MMOL/L (135-145)
--- NOTE | 2022-07-17 06:20 | NUR ---
spoke to Dr. Russell and informed him of critical sodium 117.
[2022-07-17 06:22] LABS: BASOPHILS % (AUTO) 0 % (0-1); EOSINOPHILS % (AUTO) 0 % (0-6); HEMATOCRIT 24.8 % (35.0-45.0); HEMOGLOBIN 8.8 g/dl (12.0-16.0); LYMPHOCYTES # (AUTO) 0.6 X10'3 (1.1-4.8); LYMPHOCYTES % (AUTO) 6.5 % (21-51); MEAN CORPUSCULAR HEMOGLOBIN 31.5 PG (27.0-31.0); MEAN CORPUSCULAR HGB CONC 35.5 g/dL (33.0-36.5); MEAN CORPUSCULAR VOLUME 88.9 FL (78-98); MEAN PLATELET VOLUME 8.2 FL (7.4-10.4); MONOCYTES # (AUTO) 0.4 X10'3 (0-0.9); NEUTROPHILS # (AUTO) 7.9 X10'3 (1.8-7.7); NEUTROPHILS % (AUTO) 89.5 % (42-75); PLATELET COUNT 248 X10'3 (140-440); RED BLOOD COUNT 2.79 X10'6 (4.20-5.60); RED CELL DISTRIBUTION WIDTH 14.6 % (11.5-14.5); WHITE BLOOD COUNT 8.8 X10'3 (4.5-11.0)
--- NOTE | 2022-07-17 07:08 | NUR ---
paged Dr. Sierra re: Critical sodium of 117, down from 119 yesterday.
[2022-07-17] MEDS: nicotine 14mg patch - 24hr TD SCH (08:00)
[2022-07-17] MEDS: pantoprazole 40mg Tablet.DR PO SCH (08:32)
[2022-07-17] MEDS: levoTHYROXINE 125mcg tablet PO SCH (08:32)
[2022-07-17] MEDS: aspirin 81mg, enteric-coated 1 TAB TABLET.DR PO SCH (08:33)
[2022-07-17] MEDS: gabapentin 100mg capsule PO SCH (08:33)
[2022-07-17] MEDS: citalopram 20mg tablet PO SCH (08:33)
[2022-07-17] MEDS: calcium carbonate 500mg tablet PO SCH ×2 (08:33→20:00)
[2022-07-17] MEDS: labetalol 100mg tablet PO SCH ×3 (08:34→21:48)
[2022-07-17] MEDS: nicotine 7mg patch - 24hr TD SCH (08:34)
[2022-07-17] MEDS: carBAMazepine 100mg chewable tablet PO SCH ×2 (08:34→20:00)
[2022-07-17] MEDS: amLODIPine 5mg tablet PO SCH (08:34)
[2022-07-17] MEDS: methylPREDNISolone sod succ 125mg/2ml vial IV SCH ×2 (08:35→20:00)
[2022-07-17] MEDS: budesonide 0.5mg/2ml UD nebule IH SCH (08:49)
[2022-07-17] MEDS ORDERED: BUDE10.2 INH (09:07)
[2022-07-17] MEDS: NORMAL SALINE IV SCH (10:09)
[2022-07-17] MEDS: CEFEPIME IV SCH (10:09)
[2022-07-17] MEDS: EPOETIN ALFA-EPBX 20,000 UNIT/ML 1 ML MDV SQ SCH (10:31)
[2022-07-17] MEDS: heparin, porcine 5000 units/ml vial SQ SCH ×2 (10:31→20:00)
--- NOTE | 2022-07-17 12:44 | NUR ---
paged Dr. Sierra re: Pt is becoming increasingly agitated, confused, and mental status declining. do you want to give her anything for low sodium of 117? also family dropped off AVS from a recent appt with more info
[2022-07-17] MEDS: hydrALAZINE 20mg/ml inj. IV PRN ×2 (13:19→20:25)
--- NOTE | 2022-07-17 13:24 | NUR ---
spoke to Dr. Klein re: pt's sodium is 117 this morning down from 119. pt's mental status different from day before and very confused and disoriented.
[2022-07-17] MEDS: normal saline 1000ml 1,000 ML IV SCH ×2 (14:06→23:40)
[2022-07-17 15:06] LABS: ALBUMIN 2.6 G/DL (3.4-5.0); ANION GAP 16 (8-16); BLOOD UREA NITROGEN 102 MG/DL (7-18); BUN/CREATININE RATIO 20.1 (6.6-38.0); CALCIUM 6.2 MG/DL (8.5-10.1); CHLORIDE 75 MMOL/L (99-107); CREATININE 5.08 MG/DL (0.40-0.90); GLUCOSE 98 MG/DL (70-104); POTASSIUM 4.7 MMOL/L (3.5-5.1); TOTAL CARBON DIOXIDE 24.1 MMOL/L (24-32); eGFR 9 ML/MIN
[2022-07-17 15:13] LABS: SODIUM 115 MMOL/L (135-145)
--- NOTE | 2022-07-17 15:15 | NUR ---
Jessicad Rigo PAGER ID: [phone] MESSAGE: [id number]. Boris. Critical Na 115. Thx
[2022-07-17] MEDS: LORazepam 1 MG tablet PO PRN (16:59)
[2022-07-17] MEDS: LACTOSE-REDUCED FOOD 237ML LIQUID PO SCH (18:00)
--- NOTE | 2022-07-17 18:27 | NUR ---
F/u 07/17: Pt now AOx2 w/ increasing confusion and serum Na 115mmol/L this AM started on NS for volume depletion per EMR. PO meals remains poor now 7 days further regressing past 4 days w/ ALOC mostly 0% vs. refusing not meeting needs. Only participated in 7 meals past 7 days per EMR. Pt on heart healthy diet since admit w/ LBM 07/12 and no bowel regimen in EMR. RD d/w RN regarding liberalizing to regular diet and routine bowel regimen if MD agreeable. Constipation w/ ALOC likely impacting PO trends. RD recommends Ensure Plus High Protein TIDWM in hopes to improve nutrient intake; MD notified. Given 7 days poor nutrition intake, mild weakness, and mild edema pt meets minimum non-severe malnutrition criteria; MD notified. If poor PO persists would certainly benefit from supplemental EN via NG for nutrition provision. Will continue to monitor. Recommendations: 1) continue regular diet; encourage PO intake 2) Ensure Plus High Protein TIDWM; pending physician verification in EMR 3) IF poor ONS/meal acceptance continues; consider supplemental EN via NG for nutrition repletion. IF TF; Jevity 1.2 at 60ml/hr w/ additional free water per MD 4) Routine bowel care; 5 days constipation 5) Weekly scaled weights Addendum: 07/17/22 at [address] Amended: Links added.
[2022-07-17] MEDS ORDERED: Budesonide/Formoterol Fumarate (Symbicort 160-4.5 Mcg Inhaler) PO SCH (20:00)
[2022-07-17] MEDS: sennosides 8.6mg tablet PO SCH (20:00)
[2022-07-17 20:01] LABS: ALBUMIN 2.5 G/DL (3.4-5.0); ANION GAP 14 (8-16); BLOOD UREA NITROGEN 104 MG/DL (7-18); BUN/CREATININE RATIO 19.9 (6.6-38.0); CHLORIDE 76 MMOL/L (99-107); CREATININE 5.23 MG/DL (0.40-0.90); GLUCOSE 84 MG/DL (70-104); POTASSIUM 4.4 MMOL/L (3.5-5.1); TOTAL CARBON DIOXIDE 26.2 MMOL/L (24-32); eGFR 9 ML/MIN
[2022-07-17 20:03] LABS: SODIUM 116 MMOL/L (135-145)
[2022-07-17 20:27] LABS: ABG BASE EXCESS -1.2 mmol/L (-2.0-2.0); ABG HCO3 23.3 mmol/L (22.0-26.0); ABG OXYGEN SATURATION 97.2 % (94-97); ABG PCO2 (T) 37.8 mmHg (32.0-45.0); ABG PO2 (T) 95.3 mmHg (75.0-100.0); ALLEN'S TEST POSITIVE; FCOHb 0.2 % (0.0-3.9); FLOW 5 L/min; FMetHb 0.3 % (0.0-1.5); FO2Hb 96.7 % (94-97); PATIENT TEMPERATURE 36.8; TOTAL HEMOGLOBIN 9.3 G/dl (12.0-16.0)
[2022-07-17 20:39] LABS: BASOPHILS % (AUTO) 0.1 % (0-1); EOSINOPHILS % (AUTO) 0 % (0-6); HEMATOCRIT 25.1 % (35.0-45.0); HEMOGLOBIN 8.7 g/dl (12.0-16.0); LYMPHOCYTES # (AUTO) 0.5 X10'3 (1.1-4.8); LYMPHOCYTES % (AUTO) 6.6 % (21-51); MEAN CORPUSCULAR HEMOGLOBIN 31.1 PG (27.0-31.0); MEAN CORPUSCULAR HGB CONC 34.8 g/dL (33.0-36.5); MEAN CORPUSCULAR VOLUME 89.4 FL (78-98); MEAN PLATELET VOLUME 7.3 FL (7.4-10.4); MONOCYTES # (AUTO) 0.5 X10'3 (0-0.9); MONOCYTES % (AUTO) 5.7 % (2-12); NEUTROPHILS % (AUTO) 87.6 % (42-75); PLATELET COUNT 252 X10'3 (140-440); RED CELL DISTRIBUTION WIDTH 14.8 % (11.5-14.5)
[2022-07-17 20:51] LABS: APTT 34 SECONDS (22-32)
[2022-07-17 20:59] LABS: ALBUMIN 2.6 G/DL (3.4-5.0); ANION GAP 14 (8-16); BLOOD UREA NITROGEN 106 MG/DL (7-18); BUN/CREATININE RATIO 19.9 (6.6-38.0); CALCIUM 6.1 MG/DL (8.5-10.1); CHLORIDE 78 MMOL/L (99-107); CREATININE 5.33 MG/DL (0.40-0.90); GLUCOSE 82 MG/DL (70-104); POTASSIUM 4.5 MMOL/L (3.5-5.1); TOTAL CARBON DIOXIDE 28.1 MMOL/L (24-32); eGFR 8 ML/MIN
[2022-07-17 21:11] LABS: SODIUM 120 MMOL/L (135-145)
[2022-07-17] MEDS: mirtazapine 15mg tablet PO SCH (21:47)
[2022-07-17] MEDS: topiramate 100mg tablet PO SCH (21:48)
[2022-07-18] MEDS: hydrALAZINE 20mg/ml inj. IV PRN (00:30)
[2022-07-18 02:00] VITALS: BP 130/78
[2022-07-18 03:28] LABS: ALBUMIN 2.5 G/DL (3.4-5.0); ANION GAP 15 (8-16); BLOOD UREA NITROGEN 103 MG/DL (7-18); BUN/CREATININE RATIO 18.5 (6.6-38.0); CALCIUM 6.1 MG/DL (8.5-10.1); CHLORIDE 78 MMOL/L (99-107); CREATININE 5.58 MG/DL (0.40-0.90); GLUCOSE 110 MG/DL (70-104); POTASSIUM 4.8 MMOL/L (3.5-5.1); TOTAL CARBON DIOXIDE 27.3 MMOL/L (24-32); eGFR 8 ML/MIN
[2022-07-18 03:30] LABS: SODIUM 120 MMOL/L (135-145)
[2022-07-18] MEDS: hydrALAZINE 25 MG tablet PO SCH ×3 (05:51→16:51)
[2022-07-18 06:00] VITALS: BP 178/72
[2022-07-18 06:58] LABS: ALBUMIN 2.4 G/DL (3.4-5.0); ANION GAP 16 (8-16); BLOOD UREA NITROGEN 107 MG/DL (7-18); BUN/CREATININE RATIO 19.5 (6.6-38.0); CHLORIDE 78 MMOL/L (99-107); CREATININE 5.49 MG/DL (0.40-0.90); GLUCOSE 108 MG/DL (70-104); POTASSIUM 4.7 MMOL/L (3.5-5.1); TOTAL CARBON DIOXIDE 25.5 MMOL/L (24-32); eGFR 8 ML/MIN
[2022-07-18 07:05] LABS: SODIUM 119 MMOL/L (135-145)
--- NOTE | 2022-07-18 07:21 | NUR ---
Patient in room [facility] 3025. I have received report from Brayan GOMEZ and had the opportunity to ask questions and assume patient care. Addendum: 07/18/22 at 0737 by Maddi Evans RN Patient in room [place] [address]. I have received report from Vanessa GOMEZ and had the opportunity to ask questions and assume patient care.
--- NOTE | 2022-07-18 07:22 | NUR ---
PAged Dr. Skinner with critical lab values. PAGER ID: [phone] MESSAGE: [id number], Boris Mendez. Pts sodium level is 119, and calcium is 6.0. [facility] 1597.
[2022-07-18] MEDS: methylPREDNISolone sod succ 125mg/2ml vial IV SCH ×2 (07:56→21:12)
[2022-07-18] MEDS: heparin, porcine 5000 units/ml vial SQ SCH ×2 (07:57→21:27)
[2022-07-18] MEDS: labetalol 100mg tablet PO SCH ×3 (07:58→21:27)
[2022-07-18] MEDS: carBAMazepine 100mg chewable tablet PO SCH ×2 (07:59→21:13)
[2022-07-18] MEDS: aspirin 81mg, enteric-coated 1 TAB TABLET.DR PO SCH (07:59)
[2022-07-18] MEDS: amLODIPine 5mg tablet PO SCH (08:00)
[2022-07-18] MEDS: gabapentin 100mg capsule PO SCH (08:00)
[2022-07-18] MEDS ORDERED: Tiotropium Bromide (Spiriva Respimat) PO SCH (08:00)
[2022-07-18] MEDS: nicotine 14mg patch - 24hr TD SCH (08:00)
[2022-07-18] MEDS: calcium carbonate 500mg tablet PO SCH ×2 (08:00→21:12)
[2022-07-18] MEDS: LACTOSE-REDUCED FOOD 237ML LIQUID PO SCH ×3 (08:00→21:00)
[2022-07-18] MEDS: pantoprazole 40mg Tablet.DR PO SCH (08:01)
[2022-07-18] MEDS: citalopram 20mg tablet PO SCH (08:01)
[2022-07-18] MEDS: levoTHYROXINE 125mcg tablet PO SCH (08:01)
[2022-07-18] MEDS: sennosides 8.6mg tablet PO SCH ×2 (08:01→21:26)
[2022-07-18] MEDS: nicotine 7mg patch - 24hr TD SCH (08:01)
[2022-07-18] MEDS: normal saline 1000ml 1,000 ML IV SCH ×2 (09:40→19:40)
[2022-07-18] MEDS: CEFEPIME IV SCH (11:19)
[2022-07-18] MEDS: NORMAL SALINE IV SCH (11:19)
[2022-07-18] MEDS: acetaminophen 325mg tablet PO PRN (11:53)
[2022-07-18 12:30] VITALS: BP 170/80
[2022-07-18] MEDS: LORazepam 1 MG tablet PO PRN ×2 (13:54→21:20)
[2022-07-18 14:00] LABS: ALBUMIN 2.5 G/DL (3.4-5.0); ANION GAP 15 (8-16); BLOOD UREA NITROGEN 108 MG/DL (7-18); BUN/CREATININE RATIO 20.8 (6.6-38.0); CALCIUM 6.1 MG/DL (8.5-10.1); CHLORIDE 79 MMOL/L (99-107); CREATININE 5.19 MG/DL (0.40-0.90); GLUCOSE 136 MG/DL (70-104); POTASSIUM 4.8 MMOL/L (3.5-5.1); TOTAL CARBON DIOXIDE 25.5 MMOL/L (24-32); eGFR 9 ML/MIN
[2022-07-18 14:15] LABS: SODIUM 119 MMOL/L (135-145)
--- NOTE | 2022-07-18 14:20 | NUR ---
PAGER ID: [phone] MESSAGE: [id number], Boris Mendez. Pts sodium is still 119. Maddi [facility] 8073
[2022-07-18 15:22] VITALS: BP 160/71
--- NOTE | 2022-07-18 18:37 | NUR ---
Problems reprioritized. Patient report given, questions answered & plan of care reviewed with Eva Rn patient stable at transfer of care.
[2022-07-18 20:31] LABS: ALBUMIN 2.3 G/DL (3.4-5.0); ANION GAP 12 (8-16); BLOOD UREA NITROGEN 105 MG/DL (7-18); BUN/CREATININE RATIO 20.8 (6.6-38.0); CHLORIDE 80 MMOL/L (99-107); CREATININE 5.05 MG/DL (0.40-0.90); GLUCOSE 127 MG/DL (70-104); POTASSIUM 4.4 MMOL/L (3.5-5.1); TOTAL CARBON DIOXIDE 27.6 MMOL/L (24-32); eGFR 9 ML/MIN
[2022-07-18 20:35] LABS: SODIUM 120 MMOL/L (135-145)
[2022-07-18] MEDS: Budesonide/Formoterol Fumarate (Symbicort 160-4.5 Mcg Inhaler) IH SCH (21:00)
[2022-07-18] MEDS: ondansetron/PF 4mg/2ml inj IV PRN (21:16)
[2022-07-18] MEDS: topiramate 100mg tablet PO SCH (21:20)
[2022-07-18] MEDS: mirtazapine 15mg tablet PO SCH (21:21)
[2022-07-18 22:10] VITALS: BP 168/70
[2022-07-18 23:49] VITALS: BP 166/82
[2022-07-19] VITALS (10 sets, daily range): BP systolic 139–203; BP diastolic 67–113
[2022-07-19 03:05] LABS: ALBUMIN 2.2 G/DL (3.4-5.0); ANION GAP 12 (8-16); BLOOD UREA NITROGEN 108 MG/DL (7-18); BUN/CREATININE RATIO 20.7 (6.6-38.0); CHLORIDE 81 MMOL/L (99-107); CREATININE 5.22 MG/DL (0.40-0.90); GLUCOSE 111 MG/DL (70-104); POTASSIUM 4.7 MMOL/L (3.5-5.1); TOTAL CARBON DIOXIDE 26.7 MMOL/L (24-32); eGFR 9 ML/MIN
[2022-07-19 03:08] LABS: CALCIUM 5.5 MG/DL (8.5-10.1); SODIUM 120 MMOL/L (135-145)
[2022-07-19] MEDS ORDERED: calcium carbonate 500mg tablet PO ONE (03:35)
[2022-07-19] MEDS: normal saline 1000ml 1,000 ML IV SCH ×2 (05:25→18:40)
--- NOTE | 2022-07-19 05:26 | NUR ---
Pt. is awake alerton 02 4L NC tolerating well Sob intermittently intermittent confusing removing NC then stating trying to put it on. Pt. desats to 80% without 02. Takes po meds well, knows name and purpose for most meds. Phillips with rosana dark urine smalmt. Lab called with Critical values of Sodium and Cacium. Reported abnormal levels to MD. oral calcium replacement given tolerated well. Pt. has shortness of breath this am with wheezing. CPAP/BIPAP placed as tolerated.
--- NOTE | 2022-07-19 07:14 | NUR ---
Jeri Rojas: Boris 3026M. FYI DAVID 203/104, MAP 136, HR 74. Administering 10mg hydralazine IVP. Dory [id number] Paged RT to help titrate 60% FiO2 @ 100% O2 sats. Pt agitated. Addendum: 07/19/22 at 0936 by Dory Pelletier RN 0937: Jeri Rojas: Boris [id number]. Na+ 120, Ca+ 5.8. Critical results. Dory 7023
[2022-07-19] MEDS: hydrALAZINE 20mg/ml inj. IV PRN ×4 (07:25→21:29)
[2022-07-19] MEDS: aspirin 81mg, enteric-coated 1 TAB TABLET.DR PO SCH (07:53)
[2022-07-19] MEDS: methylPREDNISolone sod succ 125mg/2ml vial IV SCH ×2 (07:53→19:09)
[2022-07-19] MEDS: calcium carbonate 500mg tablet PO SCH ×2 (07:53→19:10)
[2022-07-19] MEDS: carBAMazepine 100mg chewable tablet PO SCH ×2 (07:53→19:10)
[2022-07-19] MEDS: sennosides 8.6mg tablet PO SCH ×2 (07:54→19:10)
[2022-07-19] MEDS: citalopram 20mg tablet PO SCH (07:54)
[2022-07-19] MEDS: gabapentin 100mg capsule PO SCH (07:54)
[2022-07-19] MEDS: amLODIPine 5mg tablet PO SCH (07:54)
[2022-07-19] MEDS: pantoprazole 40mg Tablet.DR PO SCH (07:54)
--- NOTE | 2022-07-19 07:55 | NUR ---
RT IN TO SEE PT AND PT IS ON BIPAP. PT HAS NEVER BEEN ON BIPAP AND HAS NOT NEEDED BIPAP. DAY RN KARY STATED THAT NOC SHIFT RN PLACED PT ON BIPAP AROUND 0500 WITH NO APPARENT INDICATION FOR PLACING PT ON BIPAP. RT WAS NEVER NOTIFIED. PT VERY AGITATED ON BIPAP AND BP IS ELEVATED WELL. PT TAKEN OFF BIPAP AND PLACED ON 4LPM NC. PT C/O SOB. RT GIVING PT HOME RESPIRATORY MEDS AND RN GIVING PT MORNING MEDS WELL. WILL CONTINUE TO WATCH PT CLOSELY Addendum: 07/19/22 at 0801 by Estela Parr RT Amended: Links added.
[2022-07-19] MEDS: nicotine 14mg patch - 24hr TD SCH (08:00)
[2022-07-19] MEDS: nicotine 7mg patch - 24hr TD SCH (08:00)
[2022-07-19] MEDS: LACTOSE-REDUCED FOOD 237ML LIQUID PO SCH ×2 (08:00→13:00)
[2022-07-19] MEDS: Budesonide/Formoterol Fumarate (Symbicort 160-4.5 Mcg Inhaler) IH SCH ×2 (08:02→20:10)
[2022-07-19] MEDS: Tiotropium Bromide (Spiriva Respimat) IH SCH (08:03)
[2022-07-19] MEDS: labetalol 100mg tablet PO SCH ×3 (08:04→21:27)
[2022-07-19] MEDS: levoTHYROXINE 125mcg tablet PO SCH (08:04)
[2022-07-19] MEDS: hydrALAZINE 25 MG tablet PO SCH ×3 (08:05→17:55)
--- NOTE | 2022-07-19 08:17 | NUR ---
POST RT TREATMENT AND MORNING MEDS, PT DOING MUCH BETTER. BP IS DOWN, PT O2 HAS BEEN TURNED DOWN TO 3LPM WITH SPO2 AT 96%. RR DOWN TO 22 FROM 26. PT SITTING UP EATING BREAKFAST WITH NO SIGNS OF SOB OR DISTRESS.
[2022-07-19] MEDS: heparin, porcine 5000 units/ml vial SQ SCH ×2 (08:18→19:09)
[2022-07-19 09:17] LABS: ALBUMIN 2.5 G/DL (3.4-5.0); ANION GAP 13 (8-16); BLOOD UREA NITROGEN 105 MG/DL (7-18); BUN/CREATININE RATIO 20.6 (6.6-38.0); CHLORIDE 81 MMOL/L (99-107); CREATININE 5.09 MG/DL (0.40-0.90); GLUCOSE 101 MG/DL (70-104); POTASSIUM 4.5 MMOL/L (3.5-5.1); TOTAL CARBON DIOXIDE 25.8 MMOL/L (24-32); eGFR 9 ML/MIN
[2022-07-19 09:28] LABS: CALCIUM 5.8 MG/DL (8.5-10.1); SODIUM 120 MMOL/L (135-145)
[2022-07-19] MEDS: CEFEPIME IV SCH (09:44)
[2022-07-19] MEDS: NORMAL SALINE IV SCH (09:44)
--- NOTE | 2022-07-19 09:50 | NUR ---
Called Pharm to request Epoetin
[2022-07-19] MEDS: LORazepam 1 MG tablet PO PRN ×2 (09:51→15:43)
[2022-07-19] MEDS: EPOETIN ALFA-EPBX 20,000 UNIT/ML 1 ML MDV SQ SCH (10:37)
--- NOTE | 2022-07-19 12:53 | NUR ---
Called Dr Rojas: Boris [id number]. SBP 165. Too soon for IV hydralazine. Giving scheduled 300mg labetalol. Please call if you want me to give IV hydralazine. Dory [id number]
--- NOTE | 2022-07-19 12:54 | NUR ---
F/u 07/19: Pt PO remains poor overall ~19% avg meals 8 days though refusing vs 0% half of meals not meeting needs. Remains AOx1/confused per EMR. RD d/w RN pt poor nutrition status next step would be supplemental EN via NG. Per RN, pt more A/O now only intermittent confusion w/ family at bedside and will enforce importance of PO intake. Pt/family seen by RD after RN educated pt on importance of PO. Pt reports feels like "just woke up two days ago after being asleep" trying her best w/ recent meals; noted 25-50% dinner last night and breakfast this AM. RD educated pt/family on importance of nutrition intake both for micro- and macronutrient needs. RD encouraged any foods/ONS brought from outside by family given malnutrition status; family reports does drink Boost occasionally at home. Pt is agreeable to Ensure ONS here, notified pt still pending physician verification in EMR. RD paged MD for ONS verification so can send w/ meals. Pt declines oral electrolyte solutions reports normally doesn't eat breakfast at baseline though is agreeable to: coffee WB, peach/strawberry yogurt TIDWM, and chocolate milkshake [facility] dietary notified. RD educated pt that if PO remains poor given already malnourished supplemental EN would be next step in POC; pt adamantly declines EN at this time. LBM 07/10 9 days constipation receiving routine senna w/ PRN colace last given 07/13; likely influenced by PO trends though would benefit from further bowel regimen if MD agreeable RD d/w RN. Will monitor for further PO acceptance and nutrition intervention needs this admit. Recommendations: 1) continue regular diet; encourage PO intake/food from outside by family to assist nutrition intake 2) Ensure Plus High Protein TIDWM; pending physician verification in EMR 3) [place] pt food preferences; see subjective 4) Routine bowel care; 9 days constipation consider additional bowel regimen per physician discretion 5) Weekly scaled weights Addendum: 07/19/22 at [address] Amended: Links added.
[2022-07-19 14:09] LABS: ALBUMIN 2.4 G/DL (3.4-5.0); ANION GAP 11 (8-16); BLOOD UREA NITROGEN 103 MG/DL (7-18); BUN/CREATININE RATIO 20.1 (6.6-38.0); CHLORIDE 80 MMOL/L (99-107); CREATININE 5.12 MG/DL (0.40-0.90); GLUCOSE 193 MG/DL (70-104); POTASSIUM 5.1 MMOL/L (3.5-5.1); TOTAL CARBON DIOXIDE 26.4 MMOL/L (24-32); eGFR 9 ML/MIN
[2022-07-19 14:13] LABS: SODIUM 117 MMOL/L (135-145)
--- NOTE | 2022-07-19 14:17 | NUR ---
Rigo notified cristiane 8749N. Pt critical Na+ 117, CA+ 6.0. Dory 4014
--- NOTE | 2022-07-19 15:34 | NUR ---
PT FEELING SOB. PT PULLED UP IN BED. VSS 94% ON 4L N/C 74, 171/81,16. KARY GOMZE INFORMED
--- NOTE | 2022-07-19 18:56 | NUR ---
Post op VS: 1600: 104/67, HR 54 O2 94% on 2L NC 1630: 125/68, HR 53 O2 94% on 2L NC 1700: 113/71, HR 53 O2 94% on 2L NC 1730: 125/168, HR 53, O2 94% on 2L NC 1800: 113/71, HR 53, O2 94% on 2L NC
[2022-07-19] MEDS: ondansetron/PF 4mg/2ml inj IV PRN (19:09)
[2022-07-19 20:11] LABS: ALBUMIN 2.3 G/DL (3.4-5.0); ANION GAP 10 (8-16); BLOOD UREA NITROGEN 106 MG/DL (7-18); BUN/CREATININE RATIO 20.7 (6.6-38.0); CALCIUM 6.1 MG/DL (8.5-10.1); CHLORIDE 81 MMOL/L (99-107); CREATININE 5.11 MG/DL (0.40-0.90); GLUCOSE 119 MG/DL (70-104); TOTAL CARBON DIOXIDE 25.9 MMOL/L (24-32); eGFR 9 ML/MIN
[2022-07-19 20:16] LABS: SODIUM 117 MMOL/L (135-145)
[2022-07-19] MEDS: mirtazapine 15mg tablet PO SCH (20:38)
[2022-07-19] MEDS: topiramate 100mg tablet PO SCH (21:29)
[2022-07-19] MEDS: LORazepam 2 mg/ml vial IV PRN (22:41)
[2022-07-19] MEDS ORDERED: albuterol 2.5 MG/3 ML nebule NEB PRN (23:35)
--- NOTE | 2022-07-19 23:55 | NUR ---
Pt. is awake alert oriented states hard to breathe did not feel like eating, Audible wheezing. Placed on Bipip tolerated well for 1 hour then stated was nervous and claustrophobic. Ativan given pt. still c/o sob. Phillips with low urine output 70 ml for 4 hours. Notified house furnishings supervisor of SOB, low Sodium level and low Urine output. Breathing treatment and ABG ordered. Nephrology following sodium and urine trends. 0000 ABG results WNL. Will continue to monitor.
[2022-07-19 23:56] LABS: ABG BASE EXCESS -1.7 mmol/L (-2.0-2.0); ABG HCO3 23.2 mmol/L (22.0-26.0); ABG OXYGEN SATURATION 96.1 % (94-97); ABG PCO2 (T) 39.2 mmHg (32.0-45.0); ABG PO2 (T) 80.5 mmHg (75.0-100.0); ALLEN'S TEST POSITIVE; FCOHb 0.2 % (0.0-3.9); FLOW 3 L/min; FMetHb 0.3 % (0.0-1.5); FO2Hb 95.6 % (94-97); PATIENT TEMPERATURE 36.4; RESPIRATORY RATE 20 b/min; TOTAL HEMOGLOBIN 8.9 G/dl (12.0-16.0)
[2022-07-20 03:52] VITALS: BP 136/72
[2022-07-20 06:15] VITALS: BP 178/98
--- NOTE | 2022-07-20 06:15 | NUR ---
Pt. removed BIPAP attempting to get out of bed, uncooperative yelling "help help". Audible Wheezing. Placed on NC 02 2L .BP check 177/98 Hydralazine given. BP remains high 188/108 Reported to next shift will need additional BP meds and breathing TX. Glucose check WNL. Pt. is allergic to Albuterol. This similar SOB event occured last night ABG results WNL.
[2022-07-20] MEDS: Tiotropium Bromide (Spiriva Respimat) IH SCH (07:00)
[2022-07-20] MEDS: Budesonide/Formoterol Fumarate (Symbicort 160-4.5 Mcg Inhaler) IH SCH ×2 (07:01→19:51)
[2022-07-20] MEDS: hydrALAZINE 20mg/ml inj. IV PRN (07:05)
[2022-07-20] MEDS: heparin, porcine 5000 units/ml vial SQ SCH ×2 (08:00→20:14)
[2022-07-20] MEDS: hydrALAZINE 25 MG tablet PO SCH ×4 (08:00→23:51)
[2022-07-20 08:27] LABS: BASOPHILS % (AUTO) 0 % (0-1); EOSINOPHILS # (AUTO) 0.1 X10'3 (0-0.9); EOSINOPHILS % (AUTO) 0.7 % (0-6); HEMATOCRIT 23.6 % (35.0-45.0); LYMPHOCYTES # (AUTO) 0.5 X10'3 (1.1-4.8); MEAN CORPUSCULAR HEMOGLOBIN 30.9 PG (27.0-31.0); MEAN CORPUSCULAR HGB CONC 33.8 g/dL (33.0-36.5); MEAN CORPUSCULAR VOLUME 91.6 FL (78-98); MEAN PLATELET VOLUME 7.3 FL (7.4-10.4); MONOCYTES # (AUTO) 0.4 X10'3 (0-0.9); MONOCYTES % (AUTO) 4.2 % (2-12); NEUTROPHILS # (AUTO) 8.8 X10'3 (1.8-7.7); NEUTROPHILS % (AUTO) 90.1 % (42-75); PLATELET COUNT 252 X10'3 (140-440); RED BLOOD COUNT 2.57 X10'6 (4.20-5.60); RED CELL DISTRIBUTION WIDTH 14.8 % (11.5-14.5); WHITE BLOOD COUNT 9.8 X10'3 (4.5-11.0)
[2022-07-20 08:35] LABS: ALANINE AMINOTRANSFERASE 25 U/L (12-78); ALBUMIN 2.2 G/DL (3.4-5.0); ALBUMIN/GLOBULIN RATIO 0.6 (1.1-1.5); ALKALINE PHOSPHATASE 77 IU/L (46-116); ANION GAP 12 (8-16); ASPARTATE AMINO TRANSFERASE 21 U/L (10-37); BILIRUBIN,TOTAL 0.5 MG/DL (0.1-1.0); BLOOD UREA NITROGEN 111 MG/DL (7-18); BUN/CREATININE RATIO 22.3 (6.6-38.0); CALCIUM 6.4 MG/DL (8.5-10.1); CHLORIDE 81 MMOL/L (99-107); CREATININE 4.98 MG/DL (0.40-0.90); GLUCOSE 112 MG/DL (70-104); MAGNESIUM 1.8 MG/DL (1.5-2.4); PHOSPHORUS 6.5 MG/DL (2.3-4.5); POTASSIUM 4.6 MMOL/L (3.5-5.1); TOTAL PROTEIN 5.8 G/DL (6.4-8.2); eGFR 9 ML/MIN
[2022-07-20 08:39] LABS: SODIUM 117 MMOL/L (135-145)
[2022-07-20] MEDS: methylPREDNISolone sod succ 125mg/2ml vial IV SCH ×2 (08:51→20:14)
[2022-07-20] MEDS: LORazepam 1 MG tablet PO PRN ×2 (08:52→20:13)
[2022-07-20] MEDS: aspirin 81mg, enteric-coated 1 TAB TABLET.DR PO SCH (08:53)
[2022-07-20] MEDS: labetalol 100mg tablet PO SCH ×3 (08:53→20:13)
[2022-07-20] MEDS: citalopram 20mg tablet PO SCH (08:53)
[2022-07-20] MEDS: gabapentin 100mg capsule PO SCH (08:55)
[2022-07-20] MEDS ORDERED: normal saline 1000ml 250 ML IV PRN (08:55)
[2022-07-20] MEDS: calcium carbonate 500mg tablet PO SCH ×2 (08:55→20:14)
[2022-07-20] MEDS: carBAMazepine 100mg chewable tablet PO SCH ×2 (08:55→20:13)
[2022-07-20] MEDS: sennosides 8.6mg tablet PO SCH ×2 (08:55→20:13)
[2022-07-20] MEDS ORDERED: EPOETIN ALFA-EPBX 20,000 UNIT/ML 1 ML MDV IV ONE (08:55)
[2022-07-20] MEDS: pantoprazole 40mg Tablet.DR PO SCH (08:55)
[2022-07-20] MEDS ORDERED: heparin 1,000unit/ml 10ml vial 10 ML IV ONE (08:55)
[2022-07-20] MEDS: amLODIPine 5mg tablet PO SCH (08:56)
[2022-07-20] MEDS ORDERED: heparin 1,000 units/ml 10ml inj HE ONE ×2 (09:00)
[2022-07-20] MEDS: nicotine 14mg patch - 24hr TD SCH (09:09)
[2022-07-20] MEDS: levoTHYROXINE 125mcg tablet PO SCH (09:12)
[2022-07-20] MEDS: nicotine 7mg patch - 24hr TD SCH (09:12)
[2022-07-20] MEDS ORDERED: mannitol 12.5gm/50mL VIAL IV ONE (09:35)
[2022-07-20 11:02] VITALS: BP 142/86
[2022-07-20] MEDS: NORMAL SALINE IV SCH (11:53)
[2022-07-20] MEDS: CEFEPIME IV SCH (11:53)
[2022-07-20] MEDS ORDERED: LIDOcaine 1% 30ml preserv. free vial ONE (12:42)
[2022-07-20] MEDS ORDERED: fentaNYL/PF 50MCG/1 ML 2ML syringe ONE (12:42)
--- NOTE | 2022-07-20 12:42 | NUR ---
Pt pulled off bipap. Yelling help me help me. N/C placed on pt, still desating, put back on bipap. RT called. Pt disconnected Bipap. Desat quickly. Bipap placed back on done to 45%.
[2022-07-20] MEDS ORDERED: heparin 1,000unit/ml 10ml vial 0 ML ONE (12:43)
[2022-07-20] MEDS ORDERED: heparin 1,000unit/ml 10ml vial 10 ML ONE (14:28)
[2022-07-20 15:10] VITALS: BP 154/69
[2022-07-20] MEDS: LORazepam 2 mg/ml vial IV PRN (16:00)
[2022-07-20] MEDS: LACTOSE-REDUCED FOOD 237ML LIQUID PO SCH (18:00)
--- NOTE | 2022-07-20 18:30 | NUR ---
Problems reprioritized. Patient report given, questions answered & plan of care reviewed with Duyen GOMEZ. Bedside report completed. Pt just finishing up with HD. Call light in reach. Addendum: 07/20/22 at 1831 by Fidelia Lazcano RN Amended: Links added.
[2022-07-20 19:00] VITALS: BP 171/69
[2022-07-20] MEDS: topiramate 100mg tablet PO SCH (20:13)
[2022-07-20] MEDS: mirtazapine 15mg tablet PO SCH (20:14)
[2022-07-20] MEDS: acetaminophen 325mg tablet PO PRN (21:08)
[2022-07-20] MEDS: temazepam 15mg capsule PO PRN (21:20)
[2022-07-20 23:00] VITALS: BP 155/68
[2022-07-21 04:00] VITALS: BP 162/65
--- NOTE | 2022-07-21 05:58 | NUR ---
pt TDC to right chest, oozing. Dressing changed 3x. Pressure dressing placed.
[2022-07-21 06:30] VITALS: BP 178/83
[2022-07-21] MEDS ORDERED: normal saline 1000ml 250 ML IV PRN (07:25)
[2022-07-21] MEDS ORDERED: EPOETIN ALFA-EPBX 20,000 UNIT/ML 1 ML MDV IV ONE (07:25)
[2022-07-21] MEDS ORDERED: heparin 1,000unit/ml 10ml vial 10 ML IV ONE (07:25)
[2022-07-21] MEDS ORDERED: mannitol 12.5gm/50mL VIAL IV ONE (07:25)
[2022-07-21] MEDS ORDERED: heparin 1,000 units/ml 10ml inj HE ONE ×2 (07:30)
[2022-07-21 07:39] LABS: BASOPHILS % (AUTO) 0.1 % (0-1); EOSINOPHILS % (AUTO) 0.3 % (0-6); HEMATOCRIT 24.9 % (35.0-45.0); HEMOGLOBIN 8.3 g/dl (12.0-16.0); LYMPHOCYTES # (AUTO) 0.7 X10'3 (1.1-4.8); LYMPHOCYTES % (AUTO) 7.3 % (21-51); MEAN CORPUSCULAR HEMOGLOBIN 30.7 PG (27.0-31.0); MEAN CORPUSCULAR HGB CONC 33.5 g/dL (33.0-36.5); MEAN CORPUSCULAR VOLUME 91.7 FL (78-98); MEAN PLATELET VOLUME 7.3 FL (7.4-10.4); MONOCYTES # (AUTO) 0.4 X10'3 (0-0.9); MONOCYTES % (AUTO) 4.1 % (2-12); NEUTROPHILS # (AUTO) 8.6 X10'3 (1.8-7.7); NEUTROPHILS % (AUTO) 88.2 % (42-75); PLATELET COUNT 256 X10'3 (140-440); RED BLOOD COUNT 2.72 X10'6 (4.20-5.60); RED CELL DISTRIBUTION WIDTH 14.7 % (11.5-14.5); WHITE BLOOD COUNT 9.7 X10'3 (4.5-11.0)
[2022-07-21] MEDS: carBAMazepine 100mg chewable tablet PO SCH ×2 (07:40→21:40)
[2022-07-21] MEDS: hydrALAZINE 25 MG tablet PO SCH ×2 (07:40→15:17)
[2022-07-21] MEDS: amLODIPine 5mg tablet PO SCH (07:41)
[2022-07-21] MEDS: labetalol 100mg tablet PO SCH ×3 (07:41→22:44)
[2022-07-21] MEDS: calcium carbonate 500mg tablet PO SCH ×2 (07:41→21:41)
[2022-07-21] MEDS: sennosides 8.6mg tablet PO SCH ×2 (07:41→21:40)
[2022-07-21] MEDS: citalopram 20mg tablet PO SCH (07:42)
[2022-07-21] MEDS: levoTHYROXINE 125mcg tablet PO SCH (07:42)
[2022-07-21] MEDS: pantoprazole 40mg Tablet.DR PO SCH (07:42)
[2022-07-21] MEDS: methylPREDNISolone sod succ 125mg/2ml vial IV SCH ×2 (07:42→21:44)
[2022-07-21] MEDS: heparin, porcine 5000 units/ml vial SQ SCH ×3 (07:43→20:00)
[2022-07-21] MEDS: nicotine 14mg patch - 24hr TD SCH ×2 (07:43→08:00)
[2022-07-21] MEDS: gabapentin 100mg capsule PO SCH (07:43)
[2022-07-21] MEDS: Tiotropium Bromide (Spiriva Respimat) IH SCH (07:44)
[2022-07-21] MEDS: Budesonide/Formoterol Fumarate (Symbicort 160-4.5 Mcg Inhaler) IH SCH ×2 (07:44→21:09)
[2022-07-21 07:52] LABS: ALANINE AMINOTRANSFERASE 24 U/L (12-78); ALBUMIN 2.2 G/DL (3.4-5.0); ALBUMIN/GLOBULIN RATIO 0.6 (1.1-1.5); ALKALINE PHOSPHATASE 89 IU/L (46-116); ANION GAP 8 (8-16); ASPARTATE AMINO TRANSFERASE 24 U/L (10-37); BILIRUBIN,TOTAL 0.4 MG/DL (0.1-1.0); BLOOD UREA NITROGEN 86 MG/DL (7-18); BUN/CREATININE RATIO 21.6 (6.6-38.0); CHLORIDE 88 MMOL/L (99-107); CREATININE 3.98 MG/DL (0.40-0.90); GLUCOSE 113 MG/DL (70-104); MAGNESIUM 1.9 MG/DL (1.5-2.4); PHOSPHORUS 4.8 MG/DL (2.3-4.5); POTASSIUM 4.4 MMOL/L (3.5-5.1); SODIUM 124 MMOL/L (135-145); TOTAL CARBON DIOXIDE 27.7 MMOL/L (24-32); TOTAL PROTEIN 5.8 G/DL (6.4-8.2); eGFR 12 ML/MIN
[2022-07-21] MEDS: aspirin 81mg, enteric-coated 1 TAB TABLET.DR PO SCH (07:53)
[2022-07-21] MEDS: nicotine 7mg patch - 24hr TD SCH (08:00)
[2022-07-21] MEDS: LACTOSE-REDUCED FOOD 237ML LIQUID PO SCH ×5 (08:00→19:00)
--- NOTE | 2022-07-21 08:10 | NUR ---
Paged IR to look at TDC for continual bleeding. Paged Dr. Hills "[id number] lacey Escalante bleeding out of dialysis cath site. On second pressure dressing. Want me to hold heparin?"
[2022-07-21 08:14] LABS: HBSAG SCREEN Negative (Negative)
[2022-07-21] MEDS ORDERED: gelatin sponge, absorbable (Gelfoam 12-7MM) sponge TP ONE (08:22)
--- NOTE | 2022-07-21 08:53 | NUR ---
*Med note* Nicotine patch not reassessed because not given.
[2022-07-21] MEDS: NORMAL SALINE IV SCH (09:58)
[2022-07-21] MEDS: CEFEPIME IV SCH (09:58)
[2022-07-21 10:00] VITALS: BP 158/73
[2022-07-21] MEDS ORDERED: MANNITOL 20% IV ONE ×2 (10:30→10:55)
--- NOTE | 2022-07-21 11:15 | NUR ---
patient off floor for dialysis.
[2022-07-21 15:00] VITALS: BP 187/81
[2022-07-21] MEDS: LORazepam 1 MG tablet PO PRN (15:16)
--- NOTE | 2022-07-21 15:19 | NUR ---
pt returned from dialysis
[2022-07-21 18:00] VITALS: BP 167/76
--- NOTE | 2022-07-21 18:18 | NUR ---
Patient in room PCU 3025. I have received report from Nicole GOMEZ and had the opportunity to ask questions and assume patient care.
[2022-07-21] MEDS: normal saline 1000ml 1,000 ML IV SCH (20:00)
[2022-07-21 22:00] VITALS: BP 162/71
[2022-07-21] MEDS: hydrALAZINE 20mg/ml inj. IV PRN (22:43)
[2022-07-21] MEDS: temazepam 15mg capsule PO PRN (22:44)
[2022-07-21] MEDS: topiramate 100mg tablet PO SCH (22:45)
[2022-07-21] MEDS: mirtazapine 15mg tablet PO SCH (22:48)
[2022-07-22 02:00] VITALS: BP 167/66
[2022-07-22] MEDS: hydrALAZINE 25 MG tablet PO SCH ×4 (03:22→23:39)
--- NOTE | 2022-07-22 06:49 | NUR ---
Problems reprioritized. Patient report given, questions answered & plan of care reviewed with REJI GOMEZ.
[2022-07-22 07:00] VITALS: BP 171/75
[2022-07-22] MEDS: aspirin 81mg, enteric-coated 1 TAB TABLET.DR PO SCH (07:50)
[2022-07-22] MEDS: methylPREDNISolone sod succ 125mg/2ml vial IV SCH ×2 (07:50→21:05)
[2022-07-22] MEDS: gabapentin 100mg capsule PO SCH (07:50)
[2022-07-22] MEDS: pantoprazole 40mg Tablet.DR PO SCH (07:50)
[2022-07-22] MEDS: carBAMazepine 100mg chewable tablet PO SCH ×2 (07:50→20:51)
[2022-07-22] MEDS: calcium carbonate 500mg tablet PO SCH ×2 (07:50→20:50)
[2022-07-22] MEDS: sennosides 8.6mg tablet PO SCH ×2 (07:51→20:50)
[2022-07-22] MEDS: labetalol 100mg tablet PO SCH ×3 (07:51→20:51)
[2022-07-22] MEDS: amLODIPine 5mg tablet PO SCH (07:51)
[2022-07-22] MEDS: levoTHYROXINE 125mcg tablet PO SCH (07:52)
[2022-07-22] MEDS: heparin, porcine 5000 units/ml vial SQ SCH ×2 (07:52→20:50)
[2022-07-22] MEDS: citalopram 20mg tablet PO SCH (07:52)
[2022-07-22] MEDS: nicotine 14mg patch - 24hr TD SCH (07:52)
[2022-07-22] MEDS: nicotine 7mg patch - 24hr TD SCH (07:53)
[2022-07-22] MEDS ORDERED: heparin 1,000 units/ml 10ml inj HE ONE ×2 (08:00)
[2022-07-22] MEDS ORDERED: normal saline 1000ml 250 ML IV PRN (08:00)
[2022-07-22] MEDS ORDERED: heparin 1,000unit/ml 10ml vial 10 ML IV ONE (08:00)
[2022-07-22] MEDS ORDERED: EPOETIN ALFA-EPBX 20,000 UNIT/ML 1 ML MDV IV ONE (08:00)
[2022-07-22] MEDS: Budesonide/Formoterol Fumarate (Symbicort 160-4.5 Mcg Inhaler) IH SCH ×2 (08:05→20:08)
[2022-07-22] MEDS: Tiotropium Bromide (Spiriva Respimat) IH SCH (08:07)
[2022-07-22] MEDS: CEFEPIME IV SCH (10:11)
[2022-07-22] MEDS: NORMAL SALINE IV SCH (10:11)
[2022-07-22] MEDS: LORazepam 1 MG tablet PO PRN (10:11)
[2022-07-22] MEDS: hydrALAZINE 20mg/ml inj. IV PRN (10:22)
[2022-07-22 11:00] LABS: BASOPHILS % (AUTO) 0.1 % (0-1); EOSINOPHILS % (AUTO) 0.4 % (0-6); HEMATOCRIT 23.9 % (35.0-45.0); HEMOGLOBIN 7.9 g/dl (12.0-16.0); LYMPHOCYTES # (AUTO) 0.4 X10'3 (1.1-4.8); LYMPHOCYTES % (AUTO) 3.5 % (21-51); MEAN CORPUSCULAR HEMOGLOBIN 30.2 PG (27.0-31.0); MEAN CORPUSCULAR HGB CONC 32.9 g/dL (33.0-36.5); MEAN CORPUSCULAR VOLUME 91.9 FL (78-98); MEAN PLATELET VOLUME 6.8 FL (7.4-10.4); MONOCYTES # (AUTO) 0.4 X10'3 (0-0.9); MONOCYTES % (AUTO) 3.9 % (2-12); NEUTROPHILS # (AUTO) 10.5 X10'3 (1.8-7.7); NEUTROPHILS % (AUTO) 92.1 % (42-75); PLATELET COUNT 257 X10'3 (140-440); WHITE BLOOD COUNT 11.4 X10'3 (4.5-11.0)
[2022-07-22 11:17] LABS: ALBUMIN 2.3 G/DL (3.4-5.0); ANION GAP 7 (8-16); BLOOD UREA NITROGEN 54 MG/DL (7-18); BUN/CREATININE RATIO 15.9 (6.6-38.0); CALCIUM 7.4 MG/DL (8.5-10.1); CHLORIDE 93 MMOL/L (99-107); GLUCOSE 122 MG/DL (70-104); POTASSIUM 4.8 MMOL/L (3.5-5.1); SODIUM 127 MMOL/L (135-145); TOTAL CARBON DIOXIDE 26.9 MMOL/L (24-32); eGFR 14 ML/MIN
[2022-07-22 18:00] VITALS: BP 110/66
[2022-07-22] MEDS: LACTOSE-REDUCED FOOD 237ML LIQUID PO SCH (18:00)
--- NOTE | 2022-07-22 18:28 | NUR ---
1100 -- rn contacted md fabian pt constipation. see new orders.
[2022-07-22] MEDS: mirtazapine 15mg tablet PO SCH (20:50)
[2022-07-22] MEDS: topiramate 100mg tablet PO SCH (20:51)
[2022-07-22] MEDS: polyethylene glycol 3350 17gm powd pack PO SCH (20:52)
[2022-07-22 23:00] VITALS: BP 196/83
[2022-07-23] VITALS (8 sets, daily range): BP systolic 145–199; BP diastolic 58–90
[2022-07-23] MEDS: hydrALAZINE 20mg/ml inj. IV PRN (03:13)
--- NOTE | 2022-07-23 04:00 | NUR ---
Pt BP and HR @ 2300 - 196/83, 75, PO hydralazine 50mg q8hrs scheduled @ 0000, administered by LN; BP and HR @ 0200 - 192/90, 76, Hydralazine 10mg IV inj, q6hrs PRN for sbp >160 or dbp >100 administered by RN. BP and HR @ 0345 - 164/58, 78. Pt having no c/o SOB, chest pain or any distress att.
[2022-07-23] MEDS: Budesonide/Formoterol Fumarate (Symbicort 160-4.5 Mcg Inhaler) IH SCH ×2 (07:25→19:43)
[2022-07-23] MEDS: amLODIPine 5mg tablet PO SCH ×2 (07:26→07:37)
[2022-07-23] MEDS: aspirin 81mg, enteric-coated 1 TAB TABLET.DR PO SCH (07:28)
[2022-07-23] MEDS: labetalol 100mg tablet PO SCH ×3 (07:28→21:04)
[2022-07-23] MEDS: calcium carbonate 500mg tablet PO SCH ×2 (07:29→21:03)
[2022-07-23] MEDS: gabapentin 100mg capsule PO SCH (07:29)
[2022-07-23] MEDS: hydrALAZINE 25 MG tablet PO SCH ×2 (07:29→16:41)
[2022-07-23] MEDS: pantoprazole 40mg Tablet.DR PO SCH (07:30)
[2022-07-23] MEDS: sennosides 8.6mg tablet PO SCH ×2 (07:30→21:04)
[2022-07-23] MEDS: citalopram 20mg tablet PO SCH (07:30)
[2022-07-23] MEDS: carBAMazepine 100mg chewable tablet PO SCH ×2 (07:30→21:03)
[2022-07-23] MEDS: isosorbide mononitrate 30mg tab.SR.24H PO SCH (07:30)
[2022-07-23] MEDS: levoTHYROXINE 125mcg tablet PO SCH (07:30)
[2022-07-23] MEDS: nicotine 14mg patch - 24hr TD SCH (07:31)
[2022-07-23] MEDS: nicotine 7mg patch - 24hr TD SCH (07:31)
[2022-07-23] MEDS: heparin, porcine 5000 units/ml vial SQ SCH ×2 (07:31→21:05)
[2022-07-23] MEDS: Tiotropium Bromide (Spiriva Respimat) IH SCH (07:44)
[2022-07-23] MEDS: LACTOSE-REDUCED FOOD 237ML LIQUID PO SCH ×3 (08:00→18:00)
[2022-07-23] MEDS: methylPREDNISolone sod succ 125mg/2ml vial IV SCH ×2 (08:07→21:04)
[2022-07-23] MEDS: CEFEPIME IV SCH (10:08)
[2022-07-23] MEDS: NORMAL SALINE IV SCH (10:08)
--- NOTE | 2022-07-23 13:31 | NUR ---
F/u 07/23: Pt PO remains poor though more consistent intake past 4 days ~25% avg meals w/ 50% breakfast this AM. Ensure Plus High Protein now verified in EMR started WS 07/20 PO ~25% avg as well. Pt still not meeting needs though best intake so far this admit. Noted last significant BM 07/10 receiving routine senna and miralax HS started last night; now w/ small BM this AM per EMR. Pt remains AOx2/confused per EMR; significant constipation in addition to confusion both likely continue to impact PO trends. Pt now started on HD; RD d/w RN regarding phos binder w/ meals if consumer insights specialist agreeable. BIJU paged MD regarding appetite stimulant if agreeable given poor meal acceptance this admit. Will monitor for further nutrition intervention needs this admit. Recommendations: 1) continue regular diet; encourage PO intake/food from outside by family to assist nutrition intake 2) Ensure Plus High Protein TIDWM; pending physician verification in EMR 3) [place] pt food preferences; see subjective 4) Phos binder w/ meals on HD 5) Consider appetite stimulant per physician discretion 6) Routine bowel care, utilize PRN bowel regimen; small BM 07/23 no significant BM 13 days per EMR 7) Weekly scaled weights Addendum: 07/23/22 at [address] Amended: Links added.
--- NOTE | 2022-07-23 15:58 | NUR ---
I have reviewed the physical assessment of BERNY Ivanna and agree with her assessment documentation. Magy GOMEZ
[2022-07-23] MEDS: normal saline 1000ml 1,000 ML IV SCH (18:40)
[2022-07-23] MEDS: mirtazapine 15mg tablet PO SCH (21:04)
[2022-07-23] MEDS: topiramate 100mg tablet PO SCH (21:04)
[2022-07-23] MEDS: polyethylene glycol 3350 17gm powd pack PO SCH (21:05)
[2022-07-24] VITALS (9 sets, daily range): BP systolic 158–199; BP diastolic 72–100
[2022-07-24] MEDS: hydrALAZINE 25 MG tablet PO SCH ×4 (02:25→23:25)
[2022-07-24] MEDS: hydrALAZINE 20mg/ml inj. IV PRN ×2 (05:52→21:42)
--- NOTE | 2022-07-24 07:09 | NUR ---
Page sent to @ 8084 -Pt 0419TJanine, @ 0600 - BP 199/100 HR 71, RN gave PRN IV Hydralazine 10mg push @ 0605, BP recheck @ 0650 BP 206/96, HR 78. Please advise. Eva Govea, RAILROAD CAR TRUCK BUILDER II @7033.
[2022-07-24] MEDS: methylPREDNISolone sod succ 125mg/2ml vial IV SCH (07:31)
[2022-07-24] MEDS: sennosides 8.6mg tablet PO SCH ×2 (07:32→19:56)
[2022-07-24] MEDS: citalopram 20mg tablet PO SCH (07:32)
[2022-07-24] MEDS: pantoprazole 40mg Tablet.DR PO SCH (07:32)
[2022-07-24] MEDS: levoTHYROXINE 125mcg tablet PO SCH (07:33)
[2022-07-24] MEDS: aspirin 81mg, enteric-coated 1 TAB TABLET.DR PO SCH (07:33)
[2022-07-24] MEDS: carBAMazepine 100mg chewable tablet PO SCH ×2 (07:33→19:56)
[2022-07-24] MEDS: gabapentin 100mg capsule PO SCH (07:33)
[2022-07-24] MEDS: calcium carbonate 500mg tablet PO SCH ×2 (07:33→19:55)
[2022-07-24] MEDS: isosorbide mononitrate 30mg tab.SR.24H PO SCH (07:34)
[2022-07-24] MEDS: amLODIPine 5mg tablet PO SCH (07:34)
[2022-07-24] MEDS: nicotine 14mg patch - 24hr TD SCH (07:34)
[2022-07-24] MEDS: labetalol 100mg tablet PO SCH ×3 (07:35→21:37)
[2022-07-24] MEDS: heparin, porcine 5000 units/ml vial SQ SCH ×2 (07:36→19:58)
[2022-07-24] MEDS: Budesonide/Formoterol Fumarate (Symbicort 160-4.5 Mcg Inhaler) IH SCH ×2 (08:00→19:44)
[2022-07-24] MEDS: LACTOSE-REDUCED FOOD 237ML LIQUID PO SCH ×3 (08:00→18:00)
[2022-07-24] MEDS: nicotine 7mg patch - 24hr TD SCH (08:00)
[2022-07-24] MEDS: Tiotropium Bromide (Spiriva Respimat) IH SCH (08:00)
[2022-07-24] MEDS: NORMAL SALINE IV SCH (09:56)
[2022-07-24] MEDS: CEFEPIME IV SCH (09:56)
--- NOTE | 2022-07-24 11:45 | NUR ---
Page sent to @ 6085 -Pt 1275XJanine, requesting Ativan 1mg po q6hrs PRN available, concern r/t possible sedation, would you like to change order to 0.5mg q6hrs PRN? Please advise. almas Govea LVN, II @6142.
[2022-07-24] MEDS: LORazepam 1 MG tablet PO PRN (12:16)
[2022-07-24 13:46] LABS: BASOPHILS % (AUTO) 0.1 % (0-1); EOSINOPHILS % (AUTO) 0.1 % (0-6); HEMATOCRIT 25.9 % (35.0-45.0); HEMOGLOBIN 8.2 g/dl (12.0-16.0); LYMPHOCYTES # (AUTO) 0.4 X10'3 (1.1-4.8); MEAN CORPUSCULAR HEMOGLOBIN 29.9 PG (27.0-31.0); MEAN CORPUSCULAR HGB CONC 31.7 g/dL (33.0-36.5); MEAN CORPUSCULAR VOLUME 94.5 FL (78-98); MEAN PLATELET VOLUME 7.2 FL (7.4-10.4); MONOCYTES # (AUTO) 0.4 X10'3 (0-0.9); MONOCYTES % (AUTO) 3.2 % (2-12); NEUTROPHILS # (AUTO) 12.3 X10'3 (1.8-7.7); NEUTROPHILS % (AUTO) 93.6 % (42-75); PLATELET COUNT 307 X10'3 (140-440); RED BLOOD COUNT 2.74 X10'6 (4.20-5.60); RED CELL DISTRIBUTION WIDTH 15.8 % (11.5-14.5); WHITE BLOOD COUNT 13.1 X10'3 (4.5-11.0)
[2022-07-24 13:54] LABS: ALANINE AMINOTRANSFERASE 17 U/L (12-78); ALBUMIN 2.5 G/DL (3.4-5.0); ALBUMIN/GLOBULIN RATIO 0.7 (1.1-1.5); ALKALINE PHOSPHATASE 81 IU/L (46-116); ANION GAP 3 (8-16); ASPARTATE AMINO TRANSFERASE 20 U/L (10-37); BILIRUBIN,TOTAL 0.5 MG/DL (0.1-1.0); BLOOD UREA NITROGEN 42 MG/DL (7-18); BUN/CREATININE RATIO 12.2 (6.6-38.0); CALCIUM 8.2 MG/DL (8.5-10.1); CHLORIDE 97 MMOL/L (99-107); CREATININE 3.44 MG/DL (0.40-0.90); GLUCOSE 148 MG/DL (70-104); POTASSIUM 5.2 MMOL/L (3.5-5.1); SODIUM 130 MMOL/L (135-145); TOTAL CARBON DIOXIDE 29.7 MMOL/L (24-32); TOTAL PROTEIN 5.9 G/DL (6.4-8.2); eGFR 14 ML/MIN
--- NOTE | 2022-07-24 15:30 | NUR ---
PRESSURE ULCER EDUCATION: DEFINITION: A pressure ulcer is an area of skin that breaks down when you stay in one position too long. The constant pressure against the skin reduces the blood flow to that area and the affected tissue dies. CAUSES: "Being bedridden or in a wheelchair "Fragile skin "Having a chronic condition, such as diabetes or vascular disease "Inability to move certain parts of your body without assistance "Older age "Incontinence of urine or stool SYMPTOMS: "A reddened area that DOES NOT turn white when pressed on - this can be the beginning of a pressure ulcer "A blister, deep sore or a crater - these can be advanced pressure ulcers FIRST AID: "Relieve the pressure on this area "Keep the area clean and dry "Call your primary doctor if you see any of the above symptoms "DO NOT massage the area "DO NOT use a donut shaped or ring shaped pillow- these actually interfere with the blood flow and cause complications PREVENTION: "Check for pressure ulcers everyday "Change position at least every two hours to relieve pressure "Use items that help relieve pressure- pillows, sheepskin, foam padding, and powders. "Keep skin clean and dry "Eat healthy well balanced meals "Exercise daily IF YOU SEE ANY OF THESE SYMPTOMS WHILE IN THE HOSPITAL - TELL YOUR NURSE IMMEDIATELY. IF YOU SEE ANY OF THESE SYMPTOMS WHILE AT HOME OR HAVE ANY QUESTIONS OR CONCERNS ABOUT PRESSURE ULCERS - CALL YOUR PRIMARY DOCTOR IMMEDIATELY. Addendum: 07/24/22 at 1530 by Donna Carlson LVN Amended: Links added.
--- NOTE | 2022-07-24 17:18 | NUR ---
BONE GRINDER II documentation: I have reviewed and agree with all interventions, assessments performed and documented by Eva, BONE GRINDER II.
[2022-07-24] MEDS: methylPREDNISolone sod succ/PF 40mg inj. IV SCH (19:57)
[2022-07-24] MEDS: LORazepam 2 mg/ml vial IV PRN (20:02)
[2022-07-24] MEDS: polyethylene glycol 3350 17gm powd pack PO SCH (21:00)
[2022-07-24] MEDS: topiramate 100mg tablet PO SCH (21:36)
[2022-07-24] MEDS: mirtazapine 15mg tablet PO SCH (21:37)
[2022-07-25 02:00] VITALS: BP 169/75
[2022-07-25 06:00] VITALS: BP 187/92
--- NOTE | 2022-07-25 06:56 | NUR ---
Problems reprioritized. Patient report given, questions answered & plan of care reviewed with TERESO GOMEZ.
[2022-07-25] MEDS: Tiotropium Bromide (Spiriva Respimat) IH SCH (07:42)
[2022-07-25] MEDS: Budesonide/Formoterol Fumarate (Symbicort 160-4.5 Mcg Inhaler) IH SCH ×2 (07:42→20:09)
[2022-07-25 07:53] LABS: BASOPHILS % (AUTO) 0.1 % (0-1); EOSINOPHILS # (AUTO) 0.1 X10'3 (0-0.9); EOSINOPHILS % (AUTO) 0.4 % (0-6); HEMATOCRIT 25.4 % (35.0-45.0); HEMOGLOBIN 8.2 g/dl (12.0-16.0); LYMPHOCYTES % (AUTO) 7.6 % (21-51); MEAN CORPUSCULAR HEMOGLOBIN 30.5 PG (27.0-31.0); MEAN CORPUSCULAR HGB CONC 32.2 g/dL (33.0-36.5); MEAN CORPUSCULAR VOLUME 94.6 FL (78-98); MEAN PLATELET VOLUME 7.1 FL (7.4-10.4); MONOCYTES # (AUTO) 0.8 X10'3 (0-0.9); MONOCYTES % (AUTO) 6.2 % (2-12); NEUTROPHILS # (AUTO) 11.6 X10'3 (1.8-7.7); NEUTROPHILS % (AUTO) 85.7 % (42-75); PLATELET COUNT 280 X10'3 (140-440); RED BLOOD COUNT 2.69 X10'6 (4.20-5.60); RED CELL DISTRIBUTION WIDTH 16.3 % (11.5-14.5); WHITE BLOOD COUNT 13.6 X10'3 (4.5-11.0)
[2022-07-25] MEDS: nicotine 14mg patch - 24hr TD SCH ×2 (08:00→08:07)
[2022-07-25] MEDS: nicotine 7mg patch - 24hr TD SCH (08:00)
[2022-07-25] MEDS: citalopram 20mg tablet PO SCH (08:01)
[2022-07-25] MEDS: isosorbide mononitrate 30mg tab.SR.24H PO SCH (08:01)
[2022-07-25] MEDS: levoTHYROXINE 125mcg tablet PO SCH (08:01)
[2022-07-25] MEDS: sennosides 8.6mg tablet PO SCH ×2 (08:01→19:11)
[2022-07-25 08:02] LABS: ALANINE AMINOTRANSFERASE 18 U/L (12-78); ALBUMIN 2.3 G/DL (3.4-5.0); ALBUMIN/GLOBULIN RATIO 0.7 (1.1-1.5); ALKALINE PHOSPHATASE 81 IU/L (46-116); ANION GAP 5 (8-16); ASPARTATE AMINO TRANSFERASE 20 U/L (10-37); BILIRUBIN,TOTAL 0.5 MG/DL (0.1-1.0); BLOOD UREA NITROGEN 48 MG/DL (7-18); BUN/CREATININE RATIO 12.2 (6.6-38.0); CALCIUM 8.3 MG/DL (8.5-10.1); CHLORIDE 97 MMOL/L (99-107); CREATININE 3.95 MG/DL (0.40-0.90); GLUCOSE 97 MG/DL (70-104); POTASSIUM 5.3 MMOL/L (3.5-5.1); SODIUM 131 MMOL/L (135-145); TOTAL CARBON DIOXIDE 28.7 MMOL/L (24-32); TOTAL PROTEIN 5.6 G/DL (6.4-8.2); eGFR 12 ML/MIN
[2022-07-25] MEDS: carBAMazepine 100mg chewable tablet PO SCH ×2 (08:02→19:12)
[2022-07-25] MEDS: hydrALAZINE 25 MG tablet PO SCH ×3 (08:02→23:28)
[2022-07-25] MEDS: labetalol 100mg tablet PO SCH ×3 (08:02→20:43)
[2022-07-25] MEDS: calcium carbonate 500mg tablet PO SCH ×2 (08:03→19:10)
[2022-07-25] MEDS: pantoprazole 40mg Tablet.DR PO SCH (08:03)
[2022-07-25] MEDS: aspirin 81mg, enteric-coated 1 TAB TABLET.DR PO SCH (08:03)
[2022-07-25] MEDS: gabapentin 100mg capsule PO SCH (08:03)
[2022-07-25] MEDS: methylPREDNISolone sod succ/PF 40mg inj. IV SCH ×2 (08:03→19:12)
[2022-07-25] MEDS: amLODIPine 5mg tablet PO SCH (08:03)
[2022-07-25] MEDS: LACTOSE-REDUCED FOOD 237ML LIQUID PO SCH ×3 (08:04→18:00)
[2022-07-25] MEDS: heparin, porcine 5000 units/ml vial SQ SCH ×2 (08:05→19:12)
[2022-07-25] MEDS ORDERED: normal saline 1000ml 250 ML IV PRN (08:50)
[2022-07-25] MEDS ORDERED: EPOETIN ALFA-EPBX 20,000 UNIT/ML 1 ML MDV IV ONE (08:50)
[2022-07-25] MEDS ORDERED: heparin 1,000unit/ml 10ml vial 10 ML IV ONE (08:50)
[2022-07-25] MEDS ORDERED: heparin 1,000 units/ml 10ml inj HE ONE ×2 (08:55)
[2022-07-25 12:00] VITALS: BP 167/81
[2022-07-25 19:10] VITALS: BP 192/81
[2022-07-25] MEDS: hydrALAZINE 20mg/ml inj. IV PRN (19:14)
[2022-07-25] MEDS: normal saline 1000ml 1,000 ML IV SCH (19:21)
[2022-07-25 20:25] VITALS: BP 191/74
[2022-07-25] MEDS: mirtazapine 15mg tablet PO SCH (20:43)
[2022-07-25] MEDS: topiramate 100mg tablet PO SCH (20:43)
[2022-07-25] MEDS: polyethylene glycol 3350 17gm powd pack PO SCH (20:44)
[2022-07-25 22:00] VITALS: BP 183/70
[2022-07-25] MEDS: LORazepam 1 MG tablet PO PRN (23:22)
[2022-07-26 02:00] VITALS: BP 177/78
[2022-07-26 06:00] VITALS: BP 189/86
--- NOTE | 2022-07-26 06:48 | NUR ---
Problems reprioritized. Patient report given, questions answered & plan of care reviewed with Yanci GOMEZ.
[2022-07-26] MEDS: Tiotropium Bromide (Spiriva Respimat) IH SCH (07:44)
[2022-07-26] MEDS: Budesonide/Formoterol Fumarate (Symbicort 160-4.5 Mcg Inhaler) IH SCH (07:44)
[2022-07-26] MEDS: methylPREDNISolone sod succ/PF 40mg inj. IV SCH (07:53)
[2022-07-26] MEDS: levoTHYROXINE 125mcg tablet PO SCH (07:53)
[2022-07-26] MEDS: heparin, porcine 5000 units/ml vial SQ SCH (07:53)
[2022-07-26] MEDS: aspirin 81mg, enteric-coated 1 TAB TABLET.DR PO SCH (07:54)
[2022-07-26] MEDS: citalopram 20mg tablet PO SCH (07:54)
[2022-07-26] MEDS: hydrALAZINE 25 MG tablet PO SCH ×2 (07:54→16:00)
[2022-07-26] MEDS: isosorbide mononitrate 30mg tab.SR.24H PO SCH (07:54)
[2022-07-26] MEDS: pantoprazole 40mg Tablet.DR PO SCH (07:54)
[2022-07-26] MEDS: calcium carbonate 500mg tablet PO SCH (07:54)
[2022-07-26] MEDS: amLODIPine 5mg tablet PO SCH (07:55)
[2022-07-26] MEDS: gabapentin 100mg capsule PO SCH (07:55)
[2022-07-26] MEDS: sennosides 8.6mg tablet PO SCH (07:55)
[2022-07-26] MEDS: carBAMazepine 100mg chewable tablet PO SCH (07:55)
[2022-07-26] MEDS: LACTOSE-REDUCED FOOD 237ML LIQUID PO SCH ×2 (07:56→13:00)
[2022-07-26] MEDS: labetalol 100mg tablet PO SCH ×2 (07:56→14:58)
[2022-07-26] MEDS: nicotine 7mg patch - 24hr TD SCH (08:00)
[2022-07-26] MEDS ORDERED: heparin 1,000 units/ml 10ml inj HE ONE ×2 (08:30→09:15)
[2022-07-26] MEDS ORDERED: heparin 1,000unit/ml 10ml vial 10 ML IV ONE (08:30)
[2022-07-26] MEDS ORDERED: EPOETIN ALFA-EPBX 20,000 UNIT/ML 1 ML MDV IV ONE (08:30)
[2022-07-26] MEDS ORDERED: heparin 1,000 units/ml 10ml inj IV ONE (08:30)
--- NOTE | 2022-07-26 10:46 | NUR ---
O2 Sat at rest on room air:_88__% If below 89%: Recovery O2 Sat at rest on _2__LPM:_94_%:___% via nasal cannula (mask/nasal cannula, etc..) No further documentation is necessary. If O2 Sat did not drop below 89% on room air,ambulate patient on room air. O2 Sat while ambulating on room air:_87__% Recovery O2 Sat while ambulating on _2__LPM:_92__% No further documentation is necessary. If patient does not drop below 89% while ambulating, he/she does not qualify for home O2.
--- NOTE | 2022-07-26 13:23 | NUR ---
F/u 07/26: Pt PO intake remains poor ~22% avg regular diet and Ensure Plus High Protein TID though mostly refusals continues to not meet nutrient needs. Limited nutrition interventions at this time given pt refusal of nutrition support. LBM 07/25 per EMR. Will continue to follow. Recommendations: 1) continue regular diet; encourage PO intake/food from outside by family to assist nutrition intake 2) Ensure Plus High Protein TIDWM; encourage PO 3) [place] pt food preferences; see subjective 4) Phos binder w/ meals on HD 5) Consider appetite stimulant per physician discretion 6) Routine bowel care, utilize PRN bowel regimen 7) Weekly scaled weights Addendum: 07/26/22 at [address] Amended: Links added.
[2022-07-26] MEDS ORDERED: ISOS30TA84 PO (14:51)
[2022-07-26] MEDS ORDERED: HYDR-4069 PO (14:51)
[2022-07-26] MEDS ORDERED: PRED20TA PO (14:51)
[2022-07-26] MEDS ORDERED: LABE100T8 PO (14:51)
[2022-07-26] MEDS ORDERED: NOR5T PO ×2 (14:51)
[2022-07-26] MEDS: hydrALAZINE 20mg/ml inj. IV PRN (14:58)
[2022-07-26 15:00] VITALS: BP 183/90
[2022-07-26 16:00] VITALS: BP_SYST 183
--- NOTE | 2022-07-26 16:00 | NUR ---
Discharge instructions discussed with pt. all new medications were discussed, what medications to take when she gets home and what medications to discontinue. Also educated the pt on importance of making upcoming md appointments and also the HD schedule. All questions answered. Pt states she understands all instructions. Daughter will be coming to unit to medicinal plant picker pt. Pt will leave unit via wheelchair to private car. Oxygen member service representative arrived and educated pt on the use of her new home oxygen tank.
== END 2022-07-26 17:49 | disposition home health service (06) | DRG 469 ==
LOC: ER 10:45 → UNDOADMIN 13:59 → ED HOLD 13:59 → EDBEDREQ 07-10 05:23 → PCU 3S 07-10 08:18
PROVIDERS: ADMIT Internal Medicine; ATTEND Internal Medicine
PROC: CT131ZZ Planar Nuclear Medicine Imaging of Kidneys, Ureters and Bladder using Technetium 99m (Tc-99m) (ICD-10-PCS; 2022-07-12)
PROC: B5191ZZ Fluoroscopy of Inferior Vena Cava using Low Osmolar Contrast (ICD-10-PCS; principal; 2022-07-14)
PROC: B51L1ZZ Fluoroscopy of Bilateral Renal Veins using Low Osmolar Contrast (ICD-10-PCS; 2022-07-14)
PROC: 30233N1 Transfusion of Nonautologous Red Blood Cells into Peripheral Vein, Percutaneous Approach (ICD-10-PCS; 2022-07-16)
PROC: 5A09357 Assistance with Respiratory Ventilation, Less than 24 Consecutive Hours, Continuous Positive Airway Pressure (ICD-10-PCS; 2022-07-19)
PROC: 5A09357 Assistance with Respiratory Ventilation, Less than 24 Consecutive Hours, Continuous Positive Airway Pressure (ICD-10-PCS; 2022-07-20)
PROC: 0JH63XZ Insertion of Tunneled Vascular Access Device into Chest Subcutaneous Tissue and Fascia, Percutaneous Approach (ICD-10-PCS; 2022-07-20)
PROC: 02HV33Z Insertion of Infusion Device into Superior Vena Cava, Percutaneous Approach (ICD-10-PCS; 2022-07-20)
PROC: B548ZZA Ultrasonography of Superior Vena Cava, Guidance (ICD-10-PCS; 2022-07-20)
PROC: B5181ZA Fluoroscopy of Superior Vena Cava using Low Osmolar Contrast, Guidance (ICD-10-PCS; 2022-07-20)
PROC: 5A1D70Z Performance of Urinary Filtration, Intermittent, Less than 6 Hours Per Day (ICD-10-PCS; 2022-07-20)
PROC: 5A09357 Assistance with Respiratory Ventilation, Less than 24 Consecutive Hours, Continuous Positive Airway Pressure (ICD-10-PCS; 2022-07-21)
PROC: 5A1D70Z Performance of Urinary Filtration, Intermittent, Less than 6 Hours Per Day (ICD-10-PCS; 2022-07-21)
PROC: 5A1D70Z Performance of Urinary Filtration, Intermittent, Less than 6 Hours Per Day (ICD-10-PCS; 2022-07-22)
PROC: 5A1D70Z Performance of Urinary Filtration, Intermittent, Less than 6 Hours Per Day (ICD-10-PCS; 2022-07-25)
PROC: 5A1D70Z Performance of Urinary Filtration, Intermittent, Less than 6 Hours Per Day (ICD-10-PCS; 2022-07-26)
DX: N17.9 Acute kidney failure, unspecified (principal); J96.01 Acute respiratory failure with hypoxia; G93.41 Metabolic encephalopathy; E87.20 Acidosis, unspecified; D63.8 Anemia in other chronic diseases classified elsewhere; J18.9 Pneumonia, unspecified organism; E83.51 Hypocalcemia; E87.1 Hypo-osmolality and hyponatremia; E86.0 Dehydration; E87.5 Hyperkalemia; F17.210 Nicotine dependence, cigarettes, uncomplicated; F31.9 Bipolar disorder, unspecified; G40.909 Epilepsy, unspecified, not intractable, without status epilepticus; F41.9 Anxiety disorder, unspecified; G43.909 Migraine, unspecified, not intractable, without status migrainosus; G89.29 Other chronic pain; Y95 Nosocomial condition; I70.0 Atherosclerosis of aorta; F12.90 Cannabis use, unspecified, uncomplicated; R27.8 Other lack of coordination; E89.0 Postprocedural hypothyroidism; M54.9 Dorsalgia, unspecified; I12.9 Hypertensive chronic kidney disease with stage 1 through stage 4 chronic kidney disease, or unspecified chronic kidney disease; I16.1 Hypertensive emergency; J44.0 Chronic obstructive pulmonary disease with (acute) lower respiratory infection; J44.1 Chronic obstructive pulmonary disease with (acute) exacerbation; N18.9 Chronic kidney disease, unspecified; Z85.41 Personal history of malignant neoplasm of cervix uteri; Z85.850 Personal history of malignant neoplasm of thyroid; Z86.73 Personal history of transient ischemic attack (TIA), and cerebral infarction without residual deficits; Z88.0 Allergy status to penicillin; Z88.8 Allergy status to other drugs, medicaments and biological substances; Z71.6 Tobacco abuse counseling; Z79.82 Long term (current) use of aspirin
CPT/HCPCS: 36010; 36011; 36012; 36415; 36430; 36500; 36558; 36600; 71045; 76770; 76937; 77001; 78708; 80048; 80053; 81001; 82140; 82570; 82728; 82803; 82948; 83540; 83550; 83605; 83735; 83880; 83935; 84100; 84145; 84155; 84156; 84165; 84300; 84443; 84484; 85018; 85025; 85610; 85730; 86704; 86706; 86885; 86900; 86901; 86920; 87040; 87081; 87207; 87340; 93005; 93306; 93975; 94640; 94660; 94760; 97110; 97116; 97161; 97530; 99285; A4615; A4620; A5200; A6212; A6213; A6250; A6258; A6402; A6446; A6449; A9270; A9562; C1750; C1769; C1894; E1594; G0257; G0378; J0360; J0692; J0780; J1200; J1644; J1815; J1940; J1956; J2060; J2150; J2405; J2920; J2930; J3010; J3490; J7030; J7040; J7070; P9016; Q4081; Q9967

== ENCOUNTER 2022-07-28 04:25 | Inpatient (IN) | payer MEDICAID ==
[~2022-07-28] VITALS: Ht 160 cm; Wt 60.0 kg
[~2022-07-28 04:25] MED LIST changes: -ASPI-1265 PO; +ASPI-1475 PO; -CITA20TA28 PO; +CITA40TA30 PO; -DESM0.2T31 PO; -FEXO180T94 PO; -FLUT1AER INH; +HYDR-3964 PO; -HYDR-3965 PO; +HYDR-4069 PO; +ISOS30TA84 PO; +LABE100T8 PO; -LEVA15HF4 INH; -LISI10TA27 PO; +LORA-268 PO; -LORA0.5T PO; +NICO-630 TD; +NOR5T PO; +OMEP20CA16 PO; -PANT20TA2 PO; +PRED20TA PO; -TIOT4MIS2 PO; +TIOT4MIS5 PO
[2022-07-28 04:48] LABS: ABG BASE EXCESS 4.4 mmol/L (-2.0-2.0); ABG HCO3 31.5 mmol/L (22.0-26.0); ABG OXYGEN SATURATION 98.7 % (94-97); ABG PCO2 (T) 59.4 mmHg (32.0-45.0); ABG PO2 (T) 140.5 mmHg (75.0-100.0); ALLEN'S TEST Modified; FCOHb 0.4 % (0.0-3.9); FLOW 9 L/min; FMetHb 0.3 % (0.0-1.5); PATIENT TEMPERATURE 36.3; TOTAL HEMOGLOBIN 9.8 G/dl (12.0-16.0)
[2022-07-28 04:56] LABS: BASOPHILS # (AUTO) 0.1 X10'3 (0-0.2); BASOPHILS % (AUTO) 0.3 % (0-1); EOSINOPHILS # (AUTO) 0.3 X10'3 (0-0.9); EOSINOPHILS % (AUTO) 1.5 % (0-6); HEMATOCRIT 27.6 % (35.0-45.0); HEMOGLOBIN 8.8 g/dl (12.0-16.0); LYMPHOCYTES # (AUTO) 0.8 X10'3 (1.1-4.8); LYMPHOCYTES % (AUTO) 4.3 % (21-51); MEAN CORPUSCULAR HEMOGLOBIN 30.5 PG (27.0-31.0); MEAN CORPUSCULAR HGB CONC 31.9 g/dL (33.0-36.5); MEAN CORPUSCULAR VOLUME 95.9 FL (78-98); MEAN PLATELET VOLUME 7.1 FL (7.4-10.4); MONOCYTES % (AUTO) 5.4 % (2-12); NEUTROPHILS # (AUTO) 17.1 X10'3 (1.8-7.7); NEUTROPHILS % (AUTO) 88.5 % (42-75); PLATELET COUNT 254 X10'3 (140-440); RED BLOOD COUNT 2.88 X10'6 (4.20-5.60); RED CELL DISTRIBUTION WIDTH 17.4 % (11.5-14.5); WHITE BLOOD COUNT 19.3 X10'3 (4.5-11.0)
[2022-07-28 05:08] LABS: APTT 23 SECONDS (22-32)
[2022-07-28 05:09] LABS: ALANINE AMINOTRANSFERASE 25 U/L (12-78); ALBUMIN 2.8 G/DL (3.4-5.0); ALBUMIN/GLOBULIN RATIO 0.8 (1.1-1.5); ALKALINE PHOSPHATASE 101 IU/L (46-116); ANION GAP 4 (8-16); ASPARTATE AMINO TRANSFERASE 23 U/L (10-37); BILIRUBIN,TOTAL 0.4 MG/DL (0.1-1.0); BLOOD UREA NITROGEN 29 MG/DL (7-18); BUN/CREATININE RATIO 8.3 (6.6-38.0); CALCIUM 7.9 MG/DL (8.5-10.1); CHLORIDE 103 MMOL/L (99-107); CREATININE 3.49 MG/DL (0.40-0.90); GLUCOSE 155 MG/DL (70-104); POTASSIUM 4.2 MMOL/L (3.5-5.1); SODIUM 137 MMOL/L (135-145); TOTAL CARBON DIOXIDE 29.7 MMOL/L (24-32); TOTAL PROTEIN 6.2 G/DL (6.4-8.2); eGFR 14 ML/MIN
[2022-07-28 05:52] LABS: ABG BASE EXCESS 2.9 mmol/L (-2.0-2.0); ABG HCO3 28.6 mmol/L (22.0-26.0); ABG OXYGEN SATURATION 94.7 % (94-97); ABG PCO2 (T) 48.7 mmHg (32.0-45.0); ABG PO2 (T) 73.5 mmHg (75.0-100.0); ALLEN'S TEST Modified; FCOHb 0.8 % (0.0-3.9); FMetHb 0.3 % (0.0-1.5); FO2Hb 93.7 % (94-97); PATIENT TEMPERATURE 36.5; RESPIRATORY RATE 12 b/min; TOTAL HEMOGLOBIN 9.2 G/dl (12.0-16.0)
[2022-07-28] MEDS ORDERED: ibuprofen tablet 400 MG TABLET PO ONE (06:15)
--- NOTE | 2022-07-28 07:07 | NUR ---
BIPAP DC'D. PT ON 2 LTR NC SPO2 97%.
[2022-07-28] MEDS ORDERED: cefTAZidime inj 2 GM in normal saline 100ml IV soln 100 ML IV STA (07:13)
[2022-07-28] MEDS ORDERED: nitroGLYCERIN 1gm ointment UD TP ONE (07:15)
[2022-07-28] MEDS ORDERED: vancomycin/NS 1 GM ADD-VANTAGE 250 ML IV ONE (07:15)
--- NOTE | 2022-07-28 07:24 | NUR ---
PER DR. CARTWRIGHT- NO FOREARM IV, NO PICC LINE, NO BROOKS CATH.
[2022-07-28] MEDS ORDERED: ondansetron/PF 4mg/2ml inj IV PRN (09:40)
[2022-07-28] MEDS ORDERED: acetaminophen 325mg tablet PO PRN (09:40)
[2022-07-28] MEDS ORDERED: heparin 1,000 units/ml 10ml inj IV ONE (10:10)
[2022-07-28] MEDS ORDERED: EPOETIN ALFA-EPBX 20,000 UNIT/ML 1 ML MDV IV ONE (10:10)
[2022-07-28] MEDS ORDERED: heparin 1,000unit/ml 10ml vial 10 ML IV ONE (10:10)
[2022-07-28] MEDS ORDERED: heparin 1,000 units/ml 10ml inj HE ONE ×3 (10:15→17:05)
[2022-07-28] MEDS ORDERED: isosorbide mononitrate 30mg tab.SR.24H PO ONE (11:10)
[2022-07-28] MEDS ORDERED: vancomycin/NS 1 GM ADD-VANTAGE 250 ML IV PRN (11:50)
[2022-07-28] MEDS: hydrALAZINE 25 MG tablet PO SCH ×2 (12:57→16:59)
[2022-07-28] MEDS: LORazepam 0.5 MG tablet PO PRN ×2 (12:58→19:01)
[2022-07-28] MEDS ORDERED: LEVO125T PO (13:12)
[2022-07-28] MEDS ORDERED: docusate sod 100mg capsule PO PRN (13:20)
[2022-07-28] MEDS ORDERED: HYDROcodone/acetaminophen 5mg/325mg tablet PO PRN (13:20)
[2022-07-28] MEDS ORDERED: LORazepam 0.5 MG tablet PO PRN (13:20)
[2022-07-28 14:00] VITALS: BP 190/96
[2022-07-28] MEDS: labetalol 100mg tablet PO SCH ×2 (14:22→20:23)
[2022-07-28] MEDS: gabapentin 400mg capsule PO SCH ×2 (16:59→20:23)
[2022-07-28 18:00] VITALS: BP 200/102
[2022-07-28] MEDS: Budesonide/Formoterol Fumarate (Symbicort 160-4.5 Mcg Inhaler) IH SCH (19:09)
[2022-07-28] MEDS ORDERED: levalbuterol 0.63mg/3ml nebule IH PRN (19:30)
[2022-07-28] MEDS ORDERED: CARBAMAZEPINE 200 MG PO SCH (20:00)
[2022-07-28] MEDS: heparin, porcine 5000 units/ml vial SQ SCH (20:26)
[2022-07-28] MEDS: docusate sod 100mg capsule PO SCH (20:27)
[2022-07-28] MEDS ORDERED: mirtazapine 15mg tablet PO SCH (21:00)
[2022-07-28] MEDS ORDERED: topiramate 100mg tablet PO SCH (21:00)
[2022-07-28] MEDS: carBAMazepine 100mg chewable tablet PO SCH (21:05)
[2022-07-28 22:00] VITALS: BP 159/67
[2022-07-29] MEDS: hydrALAZINE 25 MG tablet PO SCH ×2 (00:09→08:33)
[2022-07-29 02:00] VITALS: BP 178/73
[2022-07-29] MEDS ORDERED: VANCOMYCIN LEVEL IV SCH (03:00)
[2022-07-29 06:07] LABS: BASOPHILS # (AUTO) 0.1 X10'3 (0-0.2); BASOPHILS % (AUTO) 0.6 % (0-1); EOSINOPHILS # (AUTO) 0.2 X10'3 (0-0.9); EOSINOPHILS % (AUTO) 1.5 % (0-6); HEMATOCRIT 25.5 % (35.0-45.0); HEMOGLOBIN 8.1 g/dl (12.0-16.0); LYMPHOCYTES # (AUTO) 0.8 X10'3 (1.1-4.8); LYMPHOCYTES % (AUTO) 7.5 % (21-51); MEAN CORPUSCULAR HEMOGLOBIN 30.7 PG (27.0-31.0); MEAN CORPUSCULAR HGB CONC 31.8 g/dL (33.0-36.5); MEAN CORPUSCULAR VOLUME 96.4 FL (78-98); MEAN PLATELET VOLUME 7.5 FL (7.4-10.4); MONOCYTES # (AUTO) 0.7 X10'3 (0-0.9); MONOCYTES % (AUTO) 6.1 % (2-12); NEUTROPHILS # (AUTO) 9.5 X10'3 (1.8-7.7); NEUTROPHILS % (AUTO) 84.3 % (42-75); PLATELET COUNT 207 X10'3 (140-440); RED BLOOD COUNT 2.64 X10'6 (4.20-5.60); RED CELL DISTRIBUTION WIDTH 17.3 % (11.5-14.5); WHITE BLOOD COUNT 11.3 X10'3 (4.5-11.0)
[2022-07-29 06:15] LABS: ALBUMIN 2.4 G/DL (3.4-5.0); ANION GAP 5 (8-16); BLOOD UREA NITROGEN 18 MG/DL (7-18); BUN/CREATININE RATIO 7.3 (6.6-38.0); CALCIUM 7.8 MG/DL (8.5-10.1); CHLORIDE 102 MMOL/L (99-107); CREATININE 2.46 MG/DL (0.40-0.90); GLUCOSE 98 MG/DL (70-104); POTASSIUM 3.8 MMOL/L (3.5-5.1); SODIUM 137 MMOL/L (135-145); TOTAL CARBON DIOXIDE 30.4 MMOL/L (24-32); VANCOMYCIN,RANDOM 12.7 UG/ML; eGFR 20 ML/MIN
[2022-07-29 07:00] VITALS: BP 186/84
[2022-07-29] MEDS ORDERED: pantoprazole 40mg Tablet.DR PO SCH (08:00)
[2022-07-29] MEDS ORDERED: citalopram 20mg tablet PO SCH (08:00)
[2022-07-29] MEDS ORDERED: aspirin 81mg, enteric-coated 1 TAB TABLET.DR PO SCH (08:00)
[2022-07-29] MEDS ORDERED: nicotine 7mg patch - 24hr TD SCH (08:00)
[2022-07-29] MEDS ORDERED: Tiotropium Bromide (Spiriva Respimat) PO SCH (08:00)
[2022-07-29] MEDS ORDERED: isosorbide mononitrate 30mg tab.SR.24H PO SCH (08:00)
[2022-07-29] MEDS: Budesonide/Formoterol Fumarate (Symbicort 160-4.5 Mcg Inhaler) IH SCH (08:09)
[2022-07-29] MEDS: heparin, porcine 5000 units/ml vial SQ SCH (08:32)
[2022-07-29 08:33] VITALS: BP_SYST 186
[2022-07-29] MEDS: docusate sod 100mg capsule PO SCH (08:33)
[2022-07-29] MEDS: gabapentin 400mg capsule PO SCH ×2 (08:33→12:22)
[2022-07-29] MEDS: labetalol 100mg tablet PO SCH ×2 (08:33→12:22)
[2022-07-29] MEDS: carBAMazepine 100mg chewable tablet PO SCH (08:34)
[2022-07-29] MEDS: LORazepam 0.5 MG tablet PO PRN (08:34)
[2022-07-29] MEDS ORDERED: vancomycin/NS 1 GM ADD-VANTAGE 250 ML X 1 DOSE IV ONE (12:00)
[2022-07-29] MEDS ORDERED: NITR1OIN TOP (13:26)
--- NOTE | 2022-07-29 14:14 | NUR ---
Pt ccleared for discharge. IV removed. D/c paperwork discussed with patient. Pt verbalized understanding. Pt left in wheelchair with daughter.
[2022-07-30] MEDS ORDERED: NITR1OIN TOP ×2 (11:16→15:35)
[2022-07-30] MEDS ORDERED: NITR1OIN TD (14:30)
== END 2022-07-29 14:14 | disposition home health service (06) | DRG 199 ==
LOC: ER 04:25 → ED HOLD 09:43 → EDBEDREQTM 10:39 → PCU 3S 13:46
PROVIDERS: ADMIT Family Medicine; ATTEND Family Medicine
PROC: 5A09357 Assistance with Respiratory Ventilation, Less than 24 Consecutive Hours, Continuous Positive Airway Pressure (ICD-10-PCS; principal; 2022-07-28)
PROC: 5A1D70Z Performance of Urinary Filtration, Intermittent, Less than 6 Hours Per Day (ICD-10-PCS; 2022-07-28)
DX: I16.1 Hypertensive emergency (principal); D63.1 Anemia in chronic kidney disease; I50.9 Heart failure, unspecified; N18.6 End stage renal disease; D72.829 Elevated white blood cell count, unspecified; Z20.822 Contact with and (suspected) exposure to COVID-19; I13.2 Hypertensive heart and chronic kidney disease with heart failure and with stage 5 chronic kidney disease, or end stage renal disease; E89.0 Postprocedural hypothyroidism; F17.200 Nicotine dependence, unspecified, uncomplicated; F31.9 Bipolar disorder, unspecified; F41.9 Anxiety disorder, unspecified; G43.909 Migraine, unspecified, not intractable, without status migrainosus; F12.90 Cannabis use, unspecified, uncomplicated; M54.9 Dorsalgia, unspecified; K21.9 Gastro-esophageal reflux disease without esophagitis; G40.909 Epilepsy, unspecified, not intractable, without status epilepticus; J44.9 Chronic obstructive pulmonary disease, unspecified; G89.29 Other chronic pain; Z85.41 Personal history of malignant neoplasm of cervix uteri; Z88.0 Allergy status to penicillin; Z86.73 Personal history of transient ischemic attack (TIA), and cerebral infarction without residual deficits; Z99.2 Dependence on renal dialysis; Z88.8 Allergy status to other drugs, medicaments and biological substances; Z79.82 Long term (current) use of aspirin; Z79.899 Other long term (current) drug therapy; Z71.6 Tobacco abuse counseling
CPT/HCPCS: 36415; 36600; 71045; 80048; 80053; 80202; 82803; 83880; 84145; 84484; 85018; 85025; 85610; 85730; 87040; 87081; 87502; 87503; 87635; 93005; 94640; 94660; 94760; A4615; A6258; A6402; C9803; E1594; G0378; J0713; J1644; J3370; J3490; J7030; Q4081

== ENCOUNTER 2022-07-30 07:32 | Emergency (ER) | payer MEDICAID ==
[~2022-07-30] VITALS: Ht 162.6 cm; Wt 50.0 kg
[~2022-07-30 07:32] MED LIST changes: -LEVO100T PO; +LEVO125T PO; +NITR1OIN TOP; -NOR5T PO
[2022-07-30] MEDS ORDERED: acetaminophen 325mg tablet PO ONE (07:45)
[2022-07-30] MEDS ORDERED: nitroGLYCERIN 1gm ointment UD TP ONE (07:45)
[2022-07-30 08:06] LABS: BASOPHILS % (AUTO) 0.4 % (0-1); EOSINOPHILS # (AUTO) 0.1 X10'3 (0-0.9); EOSINOPHILS % (AUTO) 0.9 % (0-6); LYMPHOCYTES # (AUTO) 0.4 X10'3 (1.1-4.8); LYMPHOCYTES % (AUTO) 3.1 % (21-51); MEAN CORPUSCULAR HEMOGLOBIN 29.7 PG (27.0-31.0); MEAN CORPUSCULAR HGB CONC 30.8 g/dL (33.0-36.5); MEAN CORPUSCULAR VOLUME 96.3 FL (78-98); MEAN PLATELET VOLUME 7.6 FL (7.4-10.4); MONOCYTES # (AUTO) 0.5 X10'3 (0-0.9); MONOCYTES % (AUTO) 3.8 % (2-12); NEUTROPHILS # (AUTO) 11.7 X10'3 (1.8-7.7); NEUTROPHILS % (AUTO) 91.8 % (42-75); PLATELET COUNT 200 X10'3 (140-440); RED CELL DISTRIBUTION WIDTH 17.1 % (11.5-14.5); WHITE BLOOD COUNT 12.7 X10'3 (4.5-11.0)
[2022-07-30 08:21] LABS: ALANINE AMINOTRANSFERASE 24 U/L (12-78); ALBUMIN 2.6 G/DL (3.4-5.0); ALBUMIN/GLOBULIN RATIO 0.8 (1.1-1.5); ALKALINE PHOSPHATASE 98 IU/L (46-116); ANION GAP 8 (8-16); ASPARTATE AMINO TRANSFERASE 18 U/L (10-37); BILIRUBIN,TOTAL 0.5 MG/DL (0.1-1.0); BLOOD UREA NITROGEN 29 MG/DL (7-18); CALCIUM 7.7 MG/DL (8.5-10.1); CHLORIDE 100 MMOL/L (99-107); CREATININE 3.64 MG/DL (0.40-0.90); GLUCOSE 141 MG/DL (70-104); POTASSIUM 4.3 MMOL/L (3.5-5.1); SODIUM 136 MMOL/L (135-145); TOTAL CARBON DIOXIDE 28.5 MMOL/L (24-32); TOTAL PROTEIN 5.8 G/DL (6.4-8.2); eGFR 13 ML/MIN
--- NOTE | 2022-07-30 09:00 | NUR ---
Repositioned the pt to LFT Lateral side to relieve extra pressure off the bottom with pillow.
[2022-07-30] MEDS ORDERED: NITR1OIN TOP ×2 (11:16→15:35)
[2022-07-30] MEDS ORDERED: labetalol 100mg tablet PO ONE (12:05)
[2022-07-30 13:44] VITALS: BP 184/64
--- NOTE | 2022-07-30 14:00 | NUR ---
INFORMED MD THAT PT BP IS 180'S SYSTOLIC PER MD ORDER AMLODIPINE 5 MG PO ONCE FOR HIGH BP . Addendum: 07/30/22 at 1408 by HOMERO VERBAL ORDERS FROM DR BORJA
[2022-07-30] MEDS ORDERED: amLODIPine 5mg tablet PO ONE (14:05)
--- NOTE | 2022-07-30 14:07 | NUR ---
PT BP DROP DOWN TO 172/88 , PER MD HOLD ON AMILODIPINE TAB.
[2022-07-30] MEDS ORDERED: NITR1OIN TD (14:30)
== END 2022-07-30 14:59 | disposition home or self-care (01) ==
LOC: ER 07:34
DX: I12.9 Hypertensive chronic kidney disease with stage 1 through stage 4 chronic kidney disease, or unspecified chronic kidney disease (principal); N18.9 Chronic kidney disease, unspecified; G43.909 Migraine, unspecified, not intractable, without status migrainosus; J44.9 Chronic obstructive pulmonary disease, unspecified; G89.29 Other chronic pain; E03.9 Hypothyroidism, unspecified; F41.9 Anxiety disorder, unspecified; F31.9 Bipolar disorder, unspecified; Z86.73 Personal history of transient ischemic attack (TIA), and cerebral infarction without residual deficits; F12.90 Cannabis use, unspecified, uncomplicated; Z72.89 Other problems related to lifestyle; Z88.0 Allergy status to penicillin; Z88.6 Allergy status to analgesic agent; Z88.8 Allergy status to other drugs, medicaments and biological substances; Z91.018 Allergy to other foods; Z79.82 Long term (current) use of aspirin; Z79.899 Other long term (current) drug therapy
CPT/HCPCS: 36415; 71045; 80053; 83880; 84484; 85025; 93005; 99285

== ENCOUNTER 2022-08-09 05:00 | Inpatient (IN) | payer MEDICAID ==
[2022-08-09] VITALS (11 sets, daily range): BP systolic 139–204; BP diastolic 63–96
[~2022-08-09] VITALS: Ht 157.5 cm; Wt 75.0 kg
[~2022-08-09 05:00] MED LIST changes: +NITR1OIN TD
[2022-08-09] MEDS ORDERED: ipratropium/albuterol 3ml nebule NEB ONE (05:10)
[2022-08-09 05:15] LABS: ABG BASE EXCESS 2.4 mmol/L (-2.0-2.0); ABG HCO3 29.5 mmol/L (22.0-26.0); ABG OXYGEN SATURATION 99.9 % (94-97); ABG PCO2 (T) 61.4 mmHg (32.0-45.0); ABG PO2 (T) 279.9 mmHg (75.0-100.0); FCOHb 1.1 % (0.0-3.9); FLOW 7 L/min; FMetHb 0.1 % (0.0-1.5); FO2Hb 98.7 % (94-97); TOTAL HEMOGLOBIN 8.8 G/dl (12.0-16.0)
[2022-08-09] MEDS ORDERED: ipratropium/albuterol 3ml nebule ONE (05:18)
[2022-08-09 05:37] LABS: BASOPHILS % (AUTO) 0.9 % (0-1); EOSINOPHILS # (AUTO) 0.2 X10'3 (0-0.9); EOSINOPHILS % (AUTO) 2.9 % (0-6); HEMATOCRIT 24.9 % (35.0-45.0); HEMOGLOBIN 7.8 g/dl (12.0-16.0); LYMPHOCYTES # (AUTO) 0.4 X10'3 (1.1-4.8); LYMPHOCYTES % (AUTO) 7.1 % (21-51); MEAN CORPUSCULAR HEMOGLOBIN 29.6 PG (27.0-31.0); MEAN CORPUSCULAR HGB CONC 31.4 g/dL (33.0-36.5); MEAN CORPUSCULAR VOLUME 94.1 FL (78-98); MEAN PLATELET VOLUME 7.6 FL (7.4-10.4); MONOCYTES # (AUTO) 0.3 X10'3 (0-0.9); MONOCYTES % (AUTO) 5.6 % (2-12); NEUTROPHILS # (AUTO) 4.7 X10'3 (1.8-7.7); NEUTROPHILS % (AUTO) 83.5 % (42-75); PLATELET COUNT 282 X10'3 (140-440); RED BLOOD COUNT 2.65 X10'6 (4.20-5.60); RED CELL DISTRIBUTION WIDTH 15.8 % (11.5-14.5); WHITE BLOOD COUNT 5.6 X10'3 (4.5-11.0)
[2022-08-09 05:55] LABS: ALANINE AMINOTRANSFERASE 21 U/L (12-78); ALBUMIN/GLOBULIN RATIO 0.8 (1.1-1.5); ALKALINE PHOSPHATASE 111 IU/L (46-116); ANION GAP 7 (8-16); ASPARTATE AMINO TRANSFERASE 18 U/L (10-37); BILIRUBIN,TOTAL 0.5 MG/DL (0.1-1.0); BLOOD UREA NITROGEN 40 MG/DL (7-18); BUN/CREATININE RATIO 12.2 (6.6-38.0); CALCIUM 8.5 MG/DL (8.5-10.1); CHLORIDE 93 MMOL/L (99-107); CREATININE 3.28 MG/DL (0.40-0.90); GLUCOSE 153 MG/DL (70-104); POTASSIUM 3.9 MMOL/L (3.5-5.1); SODIUM 131 MMOL/L (135-145); TOTAL CARBON DIOXIDE 30.9 MMOL/L (24-32); TOTAL PROTEIN 6.7 G/DL (6.4-8.2); eGFR 15 ML/MIN
--- NOTE | 2022-08-09 05:56 | NUR ---
CT VIA [facility] RT AND NURSE ON MONITOR
[2022-08-09 06:06] LABS: URINE AMPHETAMINE SCREEN NEGATIVE (Neg); URINE BARBITUATE SCREEN NEGATIVE (Neg); URINE BENZODIAZEPINES SCREEN NEGATIVE (Neg); URINE CANNABINOID SCREEN POSITIVE (Neg); URINE COCAINE SCREEN NEGATIVE (Neg); URINE METHADONE SCREEN NEGATIVE (Neg); URINE OPIATE SCREEN POSITIVE (Neg); URINE PHENCYCLIDINE SCREEN NEGATIVE (Neg)
[2022-08-09 06:12] LABS: CLARITY,URINE CLOUDY (Clear); COLOR,URINE AMBER (Yellow); GLUCOSE, URINE NEGATIVE (Neg); KETONES,URINE TRACE mg/dl (Neg); LEUKOCYTE ESTERASE ,URINE NEGATIVE (Neg); OCCULT BLOOD,URINE NEGATIVE (Neg); PROTEIN,URINE 100 mg/dl (Neg); UROBILINOGEN,URINE 0.2 E.U/dL (0.2-1.0)
--- NOTE | 2022-08-09 06:13 | NUR ---
COARSE CRACKLES THROUGHOUT, SUTION OUT PINK FROTHY SPUTUM. BIPAP AT 50% SPO2 100%
[2022-08-09 06:23] LABS: NITRITES, URINE NEGATIVE (Neg); UA COLLECTION TYPE STRAIGHT CATH
[2022-08-09 06:31] LABS: BACTERIA,URINE FEW /HPF (Neg); RBC,URINE 0-2 /HPF (0-2); WBC,URINE 0-4 /HPF (0-4)
[2022-08-09 06:32] LABS: AMORPHOUS URATES 4+; MUCUS STRANDS NONE SEEN /LPF (Neg); RENAL CELLS, URINE FEW /HPF; TRANSITIONAL EPI CELLS,URINE MODERATE /HPF
[2022-08-09 06:33] LABS: ETHANOL < 0.010 GM/DL (0.0-0.010)
[2022-08-09 06:34] LABS: HYALINE CASTS 0-3 /LPF (NEGATIVE)
[2022-08-09 06:36] LABS: SQUAMOUS EPITHELIAL CELL,UR MODERATE /LPF (FEW)
[2022-08-09] MEDS ORDERED: propofol 1000mg/100ml bottle 100 ML IV ONE (06:46)
[2022-08-09] MEDS ORDERED: propofol 1000mg/100ml bottle 100 ML IV SCH (06:50)
[2022-08-09] MEDS ORDERED: etomidate 2mg/ml inj. IV ONE (07:00)
[2022-08-09 07:20] LABS: ABG HCO3 29.3 mmol/L (22.0-26.0); ABG OXYGEN SATURATION 99.5 % (94-97); ABG PCO2 (T) 44.5 mmHg (32.0-45.0); ABG PO2 (T) 177.3 mmHg (75.0-100.0); ALLEN'S TEST POSITIVE; FCOHb 0.9 % (0.0-3.9); FMetHb 0.1 % (0.0-1.5); FO2Hb 98.5 % (94-97); PATIENT TEMPERATURE 34.9; PEEP 5 cm H2O; RESPIRATORY RATE 16 b/min; TIDAL VOLUME 400 mL; TOTAL HEMOGLOBIN 8.2 G/dl (12.0-16.0)
[2022-08-09] MEDS ORDERED: potassium Cl 40MEQ/1/2NS 520ml 520 ML IV PRN (08:05)
[2022-08-09] MEDS ORDERED: mag hydrox/Alum hydrox/simeth 30ml oral suspension PO PRN (08:05)
[2022-08-09] MEDS ORDERED: magnesium 4gm in 100ml NS 100 ML IV PRN (08:05)
[2022-08-09] MEDS ORDERED: magnesium Cl slow-release 64mg tablet PO PRN (08:05)
[2022-08-09] MEDS ORDERED: acetaminophen 325mg tablet PO PRN (08:05)
[2022-08-09] MEDS ORDERED: ondansetron/PF 4mg/2ml inj IV PRN (08:05)
[2022-08-09] MEDS ORDERED: potassium Cl 20 mEq SR tablet PO PRN ×2 (08:05)
[2022-08-09] MEDS ORDERED: magnesium hydroxide 30ml (MOM) UD suspension PO PRN (08:05)
[2022-08-09] MEDS ORDERED: EPOETIN ALFA-EPBX 20,000 UNIT/ML 1 ML MDV IV ONE (10:40)
[2022-08-09] MEDS ORDERED: normal saline 1000ml 250 ML IV PRN (10:40)
[2022-08-09] MEDS ORDERED: heparin 1,000unit/ml 10ml vial 10 ML IV ONE (10:40)
[2022-08-09] MEDS ORDERED: heparin 1,000 units/ml 10ml inj HE ONE ×2 (10:45)
[2022-08-09] MEDS ORDERED: etomidate 2mg/ml inj. ONE (11:00)
[2022-08-09] MEDS ORDERED: levoFLOXACIN-Levaquin 750MG/D5 150 ML IV ONE (11:30)
[2022-08-09] MEDS: clindamycin 600mg/D5W 50ml 50 ML IV SCH ×2 (12:19→19:45)
[2022-08-09] MEDS ORDERED: hyDRALAzine 10mg tablet PO STA (13:12)
[2022-08-09] MEDS ORDERED: labetalol 100mg tablet PO ONE (13:15)
[2022-08-09] MEDS ORDERED: lisinopril 5mg tablet PO ONE (13:45)
[2022-08-09] MEDS ORDERED: NITR1OIN TD (14:53)
[2022-08-09] MEDS ORDERED: ISOS30TA84 PO (14:53)
[2022-08-09] MEDS ORDERED: HYDR-4070 PO (14:53)
[2022-08-09] MEDS ORDERED: LABE300T4 PO (14:53)
[2022-08-09] MEDS: hyDRALAzine 10mg tablet PO SCH (16:00)
--- NOTE | 2022-08-09 16:47 | NUR ---
Patient arrived to unit at approximately 0924. On mechanical ventilator. Pt was awake and following commands. Propofol was turned off. Received orders from Dr. Skinner to extubate patient. Patient was extubated at 1040. On 2L NC saturating 98%.
--- NOTE | 2022-08-09 17:54 | NUR ---
Report called to JASON Connors who transferred patient via hospital bed to room 351. All belongings, pants, socks, bedsheet in patient bag and with patient. Patient wearing rings.
--- NOTE | 2022-08-09 17:57 | NUR ---
Patient refused catheter removal.
--- NOTE | 2022-08-09 18:08 | NUR ---
Went to CICU and retrieved pt; arrived on unit at 1801.
--- NOTE | 2022-08-09 18:48 | NUR ---
Patient in room MAC 351. I have received report from JASON Connors and had the opportunity to ask questions and assume patient care.
[2022-08-09] MEDS: heparin, porcine 5000 units/ml vial SQ SCH (19:44)
[2022-08-09] MEDS: labetalol 100mg tablet PO SCH (19:45)
[2022-08-09] MEDS: docusate sod 100mg capsule PO SCH (19:46)
[2022-08-09] MEDS: LORazepam 0.5 MG tablet PO PRN (19:46)
[2022-08-09] MEDS: K and/or MAG REPLACEMENT MC SCH (20:00)
[2022-08-09] MEDS ORDERED: ipratropium 0.5 MG/2.5ML nebule IH SCH (23:30)
[2022-08-10] MEDS: budesonide 0.5mg/2ml UD nebule IH SCH ×2 (00:01→09:00)
[2022-08-10 00:05] VITALS: BP 160/87
[2022-08-10] MEDS: hyDRALAzine 10mg tablet PO SCH ×2 (00:26→07:20)
[2022-08-10] MEDS: clindamycin 600mg/D5W 50ml 50 ML IV SCH ×3 (03:18→18:55)
[2022-08-10] MEDS: LORazepam 0.5 MG tablet PO PRN (04:16)
[2022-08-10 06:06] LABS: MAGNESIUM 1.9 MG/DL (1.5-2.4); POTASSIUM 3.4 MMOL/L (3.5-5.1)
--- NOTE | 2022-08-10 06:45 | NUR ---
Problems reprioritized. Patient report given, questions answered & plan of care reviewed with JASON Gaona.
[2022-08-10 07:00] VITALS: BP 189/83
[2022-08-10] MEDS: labetalol 100mg tablet PO SCH ×3 (07:22→20:50)
[2022-08-10] MEDS: docusate sod 100mg capsule PO SCH ×2 (07:26→20:49)
[2022-08-10] MEDS: heparin, porcine 5000 units/ml vial SQ SCH ×2 (07:29→20:50)
[2022-08-10] MEDS ORDERED: lansoprazole 15mg solutab PO SCH (07:30)
[2022-08-10] MEDS: K and/or MAG REPLACEMENT MC SCH ×2 (08:00→20:00)
[2022-08-10 08:12] VITALS: BP 176/78
[2022-08-10] MEDS ORDERED: LORazepam 0.5 MG tablet PO PRN (10:05)
[2022-08-10] MEDS ORDERED: docusate sod 100mg capsule PO PRN (10:05)
[2022-08-10] MEDS ORDERED: HYDROcodone/acetaminophen 5mg/325mg tablet PO PRN (10:05)
[2022-08-10 11:00] VITALS: BP 160/82
--- NOTE | 2022-08-10 11:13 | NUR ---
Safe medication administration by Ana LEON observed by Boston Esteves RN
--- NOTE | 2022-08-10 11:57 | NUR ---
Student documentation: I have reviewed and agree with all interventions, assessments performed and documented by Ana student nurse.
[2022-08-10] MEDS ORDERED: non-formulary drug (Labetalol Hcl 1 TAB) PO SCH (13:00)
[2022-08-10] MEDS ORDERED: gabapentin 400mg capsule PO SCH (13:00)
[2022-08-10] MEDS ORDERED: levoTHYROXINE 125mcg tablet PO ONE (13:45)
[2022-08-10] MEDS: hydrALAZINE 25 MG tablet PO SCH ×2 (15:40→23:34)
[2022-08-10 18:00] VITALS: BP 143/55
[2022-08-10] MEDS: gabapentin 300mg capsule PO SCH (20:49)
[2022-08-10] MEDS: carBAMazepine 100mg chewable tablet PO SCH (20:52)
[2022-08-10] MEDS ORDERED: topiramate 100mg tablet PO SCH (21:00)
[2022-08-10] MEDS ORDERED: mirtazapine 15mg tablet PO SCH (21:00)
[2022-08-10] MEDS: Budesonide/Formoterol Fumarate (Symbicort 160-4.5 Mcg Inhaler) IH SCH (21:03)
[2022-08-10 22:00] VITALS: BP 166/76
[2022-08-11] MEDS: clindamycin 600mg/D5W 50ml 50 ML IV SCH ×2 (02:49→11:14)
[2022-08-11 05:30] VITALS: BP 166/76
--- NOTE | 2022-08-11 06:10 | NUR ---
Patient in room MAC 351. I have received report from JASON Molina and had the opportunity to ask questions and assume patient care.
[2022-08-11 06:44] LABS: HEMATOCRIT 24.8 % (35.0-45.0); HEMOGLOBIN 8.2 g/dl (12.0-16.0); MEAN CORPUSCULAR HEMOGLOBIN 30.8 PG (27.0-31.0); MEAN CORPUSCULAR HGB CONC 33.1 g/dL (33.0-36.5); MEAN CORPUSCULAR VOLUME 92.9 FL (78-98); MEAN PLATELET VOLUME 7.3 FL (7.4-10.4); PLATELET COUNT 300 X10'3 (140-440); RED BLOOD COUNT 2.67 X10'6 (4.20-5.60); RED CELL DISTRIBUTION WIDTH 15.8 % (11.5-14.5)
[2022-08-11 06:52] LABS: MAGNESIUM 1.7 MG/DL (1.5-2.4); POTASSIUM 4.1 MMOL/L (3.5-5.1)
[2022-08-11] MEDS: K and/or MAG REPLACEMENT MC SCH (07:30)
[2022-08-11] MEDS: docusate sod 100mg capsule PO SCH ×2 (07:31→08:48)
[2022-08-11] MEDS ORDERED: albumin (human) 25% 100ml IV 100 ML IV PRN (08:00)
[2022-08-11] MEDS ORDERED: pantoprazole 40mg Tablet.DR PO SCH (08:00)
[2022-08-11] MEDS ORDERED: heparin 1,000unit/ml 10ml vial 10 ML IV ONE (08:00)
[2022-08-11] MEDS ORDERED: aspirin 81mg, enteric-coated 1 TAB TABLET.DR PO SCH (08:00)
[2022-08-11] MEDS ORDERED: heparin 1,000 units/ml 10ml inj IV ONE (08:00)
[2022-08-11] MEDS ORDERED: Tiotropium Bromide (Spiriva Respimat) PO SCH (08:00)
[2022-08-11] MEDS ORDERED: EPOETIN ALFA-EPBX 20,000 UNIT/ML 1 ML MDV IV ONE (08:00)
[2022-08-11] MEDS ORDERED: levoTHYROXINE 125mcg tablet PO SCH (08:00)
[2022-08-11] MEDS ORDERED: citalopram 20mg tablet PO SCH (08:00)
[2022-08-11] MEDS ORDERED: heparin 1,000 units/ml 10ml inj HE ONE ×2 (08:00)
[2022-08-11] MEDS ORDERED: isosorbide mononitrate 30mg tab.SR.24H PO SCH (08:00)
[2022-08-11] MEDS ORDERED: nicotine 7mg patch - 24hr TD SCH (08:00)
[2022-08-11] MEDS: carBAMazepine 100mg chewable tablet PO SCH (08:46)
[2022-08-11] MEDS: gabapentin 300mg capsule PO SCH (08:46)
[2022-08-11] MEDS: hydrALAZINE 25 MG tablet PO SCH ×2 (08:47→15:14)
[2022-08-11] MEDS: labetalol 100mg tablet PO SCH ×2 (08:48→13:00)
[2022-08-11] MEDS: heparin, porcine 5000 units/ml vial SQ SCH (08:49)
[2022-08-11] MEDS: Budesonide/Formoterol Fumarate (Symbicort 160-4.5 Mcg Inhaler) IH SCH (09:29)
[2022-08-11 10:00] VITALS: BP 158/77
[2022-08-11] MEDS ORDERED: levoFLOXACIN-Levaquin 500mg/D5 100 ML IV SCH (11:30)
[2022-08-11 15:14] VITALS: BP_SYST 185
[2022-08-11] MEDS ORDERED: LEVO-65 PO (16:06)
--- NOTE | 2022-08-11 17:55 | NUR ---
DC inst provided to pt & her daughter. IV DC'd, tip intact. All belongings sent w/pt. WC to vehicle.
== END 2022-08-11 18:07 | disposition home health service (06) | DRG 133 ==
LOC: ER 05:00 → ED HOLD 08:08 → CICU 2S 09:32 → SUR 3N 18:08
PROVIDERS: ADMIT Internal Medicine Critical Care Medicine; ATTEND Internal Medicine Critical Care Medicine
PROC: 5A1935Z Respiratory Ventilation, Less than 24 Consecutive Hours (ICD-10-PCS; principal; 2022-08-09)
PROC: 0BH17EZ Insertion of Endotracheal Airway into Trachea, Via Natural or Artificial Opening (ICD-10-PCS; 2022-08-09)
PROC: 5A09357 Assistance with Respiratory Ventilation, Less than 24 Consecutive Hours, Continuous Positive Airway Pressure (ICD-10-PCS; 2022-08-09)
PROC: 5A1D70Z Performance of Urinary Filtration, Intermittent, Less than 6 Hours Per Day (ICD-10-PCS; 2022-08-09)
PROC: 5A1D70Z Performance of Urinary Filtration, Intermittent, Less than 6 Hours Per Day (ICD-10-PCS; 2022-08-11)
DX: J96.21 Acute and chronic respiratory failure with hypoxia (principal); G93.41 Metabolic encephalopathy; I12.0 Hypertensive chronic kidney disease with stage 5 chronic kidney disease or end stage renal disease; J44.9 Chronic obstructive pulmonary disease, unspecified; D63.1 Anemia in chronic kidney disease; N18.6 End stage renal disease; Z20.822 Contact with and (suspected) exposure to COVID-19; R55 Syncope and collapse; E03.9 Hypothyroidism, unspecified; E87.70 Fluid overload, unspecified; F31.9 Bipolar disorder, unspecified; G43.909 Migraine, unspecified, not intractable, without status migrainosus; J96.22 Acute and chronic respiratory failure with hypercapnia; R68.0 Hypothermia, not associated with low environmental temperature; G89.29 Other chronic pain; M54.9 Dorsalgia, unspecified; F41.9 Anxiety disorder, unspecified; G40.909 Epilepsy, unspecified, not intractable, without status epilepticus; Z79.899 Other long term (current) drug therapy; Z83.3 Family history of diabetes mellitus; Z85.41 Personal history of malignant neoplasm of cervix uteri; Z86.73 Personal history of transient ischemic attack (TIA), and cerebral infarction without residual deficits; Z88.0 Allergy status to penicillin; Z99.2 Dependence on renal dialysis; Z88.8 Allergy status to other drugs, medicaments and biological substances
CPT/HCPCS: 31500; 36415; 36600; 70450; 71045; 80053; 80305; 80320; 81001; 82803; 82948; 83605; 83735; 83880; 84132; 84145; 84484; 85018; 85025; 85027; 87040; 87070; 87635; 93005; 94002; 94640; 94660; 94760; 99291; A4615; A4624; A6213; A6234; C9803; E1594; G0378; J1644; J1956; J2704; J3490; J7030; J7040; Q4081

== ENCOUNTER 2022-08-18 13:43 | Day surgery (SDC) | payer MEDICAID ==
[~2022-08-18] VITALS: Ht 162.6 cm; Wt 75.0 kg
[~2022-08-18 13:43] MED LIST changes: -HYDR-4069 PO; +HYDR-4070 PO; -LABE100T8 PO; +LABE300T4 PO; +LEVO-65 PO; -NITR1OIN TOP; -PRED20TA PO
[2022-08-18 13:45] VITALS: BP 169/92
[2022-08-18] MEDS ORDERED: normal saline 1000ml 250 ML IV PRN (13:45)
[2022-08-18] MEDS ORDERED: heparin 1,000unit/ml 10ml vial 10 ML IV ONE (13:45)
[2022-08-18] MEDS ORDERED: heparin 1,000 units/ml 10ml inj IV ONE (13:45)
[2022-08-18] MEDS ORDERED: heparin 1,000 units/ml 10ml inj HE ONE ×2 (13:50)
[2022-08-18] MEDS ORDERED: cloNIDine 0.1 mg tablet PO ONE ×2 (14:05→16:15)
[2022-08-18] MEDS ORDERED: LORazepam 2 mg/ml vial IV ONE (14:35)
[2022-08-18] MEDS ORDERED: hydrALAZINE 20mg/ml inj. IV ONE (16:15)
[2022-08-18 16:26] VITALS: BP_SYST 178
== END 2022-08-18 23:59 | disposition home or self-care (01) ==
LOC: ER 13:43
PROVIDERS: ATTEND Internal Medicine Critical Care Medicine
DX: I13.2 Hypertensive heart and chronic kidney disease with heart failure and with stage 5 chronic kidney disease, or end stage renal disease (principal); N18.6 End stage renal disease; I50.9 Heart failure, unspecified; F41.9 Anxiety disorder, unspecified; J44.9 Chronic obstructive pulmonary disease, unspecified; F32.A Depression, unspecified; E03.9 Hypothyroidism, unspecified; B19.20 Unspecified viral hepatitis C without hepatic coma; Z85.41 Personal history of malignant neoplasm of cervix uteri; Z86.73 Personal history of transient ischemic attack (TIA), and cerebral infarction without residual deficits; Z88.8 Allergy status to other drugs, medicaments and biological substances; Z88.0 Allergy status to penicillin; Z88.2 Allergy status to sulfonamides; Z98.890 Other specified postprocedural states; Z90.710 Acquired absence of both cervix and uterus; Z87.891 Personal history of nicotine dependence
CPT/HCPCS: 90935; J0360; J1644; J2060; J7030; A4620; E1594

== ENCOUNTER 2022-08-21 03:26 | Inpatient (IN) | payer MEDICAID ==
[~2022-08-21] VITALS: Ht 162.6 cm; Wt 50.0 kg
[2022-08-21] VITALS (9 sets, daily range): BP systolic 152–191; BP diastolic 65–98
[2022-08-21] MEDS ORDERED: nitroGLYCERIN 0.4mg/hour patch TD ONE (03:45)
[2022-08-21] MEDS ORDERED: levalbuterol 1.25mg/0.5ml nebule IH ONE (03:50)
[2022-08-21 04:06] LABS: BASOPHILS # (AUTO) 0.1 X10'3 (0-0.2); BASOPHILS % (AUTO) 0.6 % (0-1); EOSINOPHILS # (AUTO) 0.3 X10'3 (0-0.9); EOSINOPHILS % (AUTO) 2.8 % (0-6); HEMATOCRIT 23.6 % (35.0-45.0); HEMOGLOBIN 7.7 g/dl (12.0-16.0); LYMPHOCYTES # (AUTO) 0.5 X10'3 (1.1-4.8); MEAN CORPUSCULAR HEMOGLOBIN 30.4 PG (27.0-31.0); MEAN CORPUSCULAR HGB CONC 32.4 g/dL (33.0-36.5); MEAN CORPUSCULAR VOLUME 93.7 FL (78-98); MEAN PLATELET VOLUME 6.8 FL (7.4-10.4); MONOCYTES # (AUTO) 0.5 X10'3 (0-0.9); MONOCYTES % (AUTO) 4.2 % (2-12); NEUTROPHILS # (AUTO) 10.8 X10'3 (1.8-7.7); NEUTROPHILS % (AUTO) 88.4 % (42-75); PLATELET COUNT 219 X10'3 (140-440); RED BLOOD COUNT 2.52 X10'6 (4.20-5.60); RED CELL DISTRIBUTION WIDTH 16.6 % (11.5-14.5); WHITE BLOOD COUNT 12.3 X10'3 (4.5-11.0)
[2022-08-21] MEDS ORDERED: labetalol 20mg/4ml (5mg/ml) syringe IV ONE (04:10)
[2022-08-21 04:31] LABS: ALANINE AMINOTRANSFERASE 13 U/L (12-78); ALBUMIN 3.1 G/DL (3.4-5.0); ALBUMIN/GLOBULIN RATIO 0.8 (1.1-1.5); ALKALINE PHOSPHATASE 102 IU/L (46-116); ANION GAP 8 (8-16); ASPARTATE AMINO TRANSFERASE 17 U/L (10-37); BILIRUBIN,TOTAL 0.5 MG/DL (0.1-1.0); BLOOD UREA NITROGEN 61 MG/DL (7-18); BUN/CREATININE RATIO 17.8 (6.6-38.0); CALCIUM 8.6 MG/DL (8.5-10.1); CHLORIDE 99 MMOL/L (99-107); CREATININE 3.42 MG/DL (0.40-0.90); GLUCOSE 150 MG/DL (70-104); MAGNESIUM 2.1 MG/DL (1.5-2.4); POTASSIUM 4.6 MMOL/L (3.5-5.1); SODIUM 133 MMOL/L (135-145); TOTAL CARBON DIOXIDE 25.7 MMOL/L (24-32); TOTAL PROTEIN 6.8 G/DL (6.4-8.2); eGFR 14 ML/MIN
[2022-08-21] MEDS ORDERED: furosemide 10 MG/1 ML 10ml inj IV ONE (04:35)
[2022-08-21] MEDS ORDERED: magnesium Cl slow-release 64mg tablet PO PRN (04:50)
[2022-08-21] MEDS ORDERED: magnesium 4gm in 100ml NS 100 ML IV PRN (04:50)
[2022-08-21] MEDS ORDERED: acetaminophen 325mg tablet PO PRN ×2 (04:50)
[2022-08-21] MEDS ORDERED: potassium Cl 40MEQ/1/2NS 520ml 520 ML IV PRN (04:50)
[2022-08-21] MEDS ORDERED: potassium Cl 20 mEq SR tablet PO PRN ×2 (04:50)
[2022-08-21] MEDS ORDERED: ondansetron/PF 4mg/2ml inj IV PRN (04:50)
--- NOTE | 2022-08-21 07:17 | NUR ---
Patient in room ED 4. I have received report from JASON JONES, and had the opportunity to ask questions and assume patient care.
--- NOTE | 2022-08-21 07:18 | NUR ---
Pepito TEIXEIRA CONTACTED. HE SAID HE'LL REACH OUT TO HD NURSE.
[2022-08-21] MEDS ORDERED: albumin (human) 25% 100ml IV 100 ML IV PRN (07:50)
[2022-08-21] MEDS ORDERED: EPOETIN ALFA-EPBX 20,000 UNIT/ML 1 ML MDV IV ONE (07:50)
[2022-08-21] MEDS ORDERED: heparin 1,000 units/ml 10ml inj IV ONE (07:50)
[2022-08-21] MEDS ORDERED: heparin 1,000unit/ml 10ml vial 10 ML IV ONE (07:50)
[2022-08-21] MEDS ORDERED: heparin 1,000 units/ml 10ml inj HE ONE ×2 (07:55)
[2022-08-21] MEDS ORDERED: labetalol 100mg tablet PO SCH (08:00)
[2022-08-21] MEDS: hydrALAZINE 25 MG tablet PO SCH ×2 (08:15→16:10)
[2022-08-21] MEDS: levoTHYROXINE 125mcg tablet PO SCH (08:16)
[2022-08-21] MEDS: aspirin 81mg, enteric-coated 1 TAB TABLET.DR PO SCH (08:16)
[2022-08-21] MEDS: gabapentin 400mg capsule PO SCH ×2 (08:16→13:06)
[2022-08-21] MEDS: citalopram 20mg tablet PO SCH (08:16)
[2022-08-21] MEDS: labetalol 100mg tablet PO SCH ×3 (08:16→20:24)
[2022-08-21] MEDS: pantoprazole 40mg Tablet.DR PO SCH (08:16)
[2022-08-21] MEDS: isosorbide mononitrate 30mg tab.SR.24H PO SCH (08:16)
[2022-08-21] MEDS: carBAMazepine 100mg chewable tablet PO SCH ×2 (08:16→20:24)
[2022-08-21] MEDS: heparin, porcine 5000 units/ml vial SQ SCH ×2 (08:17→20:27)
[2022-08-21] MEDS ORDERED: ipratropium 0.5 MG/2.5ML nebule NEB SCH (09:00)
[2022-08-21] MEDS ORDERED: budesonide 0.5mg/2ml UD nebule IH SCH (09:00)
[2022-08-21] MEDS: LORazepam 0.5 MG tablet PO PRN ×2 (10:02→20:38)
[2022-08-21] MEDS ORDERED: levalbuterol 0.63mg/3ml nebule IH PRN (12:15)
[2022-08-21] MEDS: levalbuterol 1.25mg/0.5ml nebule IH SCH ×2 (15:00→20:10)
--- NOTE | 2022-08-21 17:42 | NUR ---
PAGE SENT PAGER ID: [phone] MESSAGE: [phone], GERSON OCONNELL, PT REPORTS SHE TAKES MIRTAZAPINE 45 MG AT HS. THANK YOU, WAGNER [phone]
--- NOTE | 2022-08-21 18:30 | NUR ---
Problems reprioritized. Patient report given, questions answered & plan of care reviewed with JASON COCHRAN.
[2022-08-21] MEDS: furosemide 40mg/4ml inj IV SCH (20:24)
[2022-08-21] MEDS ORDERED: BUDE10.26 PO (20:43)
[2022-08-21] MEDS ORDERED: TIOT4MIS2 (20:43)
[2022-08-21] MEDS ORDERED: topiramate 100mg tablet PO SCH (21:00)
[2022-08-21] MEDS: FORMOTEROL FUMARATE PO SCH ×2 (22:58→23:14)
[2022-08-21] MEDS: BUDESONIDE PO SCH ×2 (22:58→23:14)
[2022-08-21] MEDS ORDERED: Tiotropium Bromide (Spiriva Respimat) IH SCH (23:17)
[2022-08-22] MEDS: hydrALAZINE 25 MG tablet PO SCH ×2 (00:48→08:47)
[2022-08-22] MEDS: levalbuterol 1.25mg/0.5ml nebule IH SCH ×2 (02:53→08:30)
[2022-08-22 04:00] VITALS: BP 167/77
[2022-08-22 06:00] VITALS: BP 169/72
[2022-08-22 06:03] LABS: BASOPHILS # (AUTO) 0.1 X10'3 (0-0.2); BASOPHILS % (AUTO) 0.9 % (0-1); EOSINOPHILS # (AUTO) 0.4 X10'3 (0-0.9); EOSINOPHILS % (AUTO) 4.6 % (0-6); HEMATOCRIT 22.7 % (35.0-45.0); HEMOGLOBIN 7.3 g/dl (12.0-16.0); LYMPHOCYTES # (AUTO) 0.8 X10'3 (1.1-4.8); LYMPHOCYTES % (AUTO) 9.3 % (21-51); MEAN CORPUSCULAR HEMOGLOBIN 30.1 PG (27.0-31.0); MEAN CORPUSCULAR HGB CONC 32.1 g/dL (33.0-36.5); MEAN CORPUSCULAR VOLUME 93.6 FL (78-98); MEAN PLATELET VOLUME 7.3 FL (7.4-10.4); MONOCYTES # (AUTO) 0.6 X10'3 (0-0.9); MONOCYTES % (AUTO) 7.4 % (2-12); NEUTROPHILS # (AUTO) 6.5 X10'3 (1.8-7.7); NEUTROPHILS % (AUTO) 77.8 % (42-75); PLATELET COUNT 172 X10'3 (140-440); RED BLOOD COUNT 2.43 X10'6 (4.20-5.60); RED CELL DISTRIBUTION WIDTH 16.3 % (11.5-14.5); WHITE BLOOD COUNT 8.4 X10'3 (4.5-11.0)
[2022-08-22 06:21] LABS: ALANINE AMINOTRANSFERASE 14 U/L (12-78); ALBUMIN 2.9 G/DL (3.4-5.0); ALBUMIN/GLOBULIN RATIO 0.8 (1.1-1.5); ALKALINE PHOSPHATASE 96 IU/L (46-116); ANION GAP 8 (8-16); ASPARTATE AMINO TRANSFERASE 22 U/L (10-37); BILIRUBIN,TOTAL 0.6 MG/DL (0.1-1.0); BLOOD UREA NITROGEN 39 MG/DL (7-18); BUN/CREATININE RATIO 13.3 (6.6-38.0); CALCIUM 7.7 MG/DL (8.5-10.1); CHLORIDE 98 MMOL/L (99-107); CREATININE 2.94 MG/DL (0.40-0.90); GLUCOSE 126 MG/DL (70-104); POTASSIUM 3.6 MMOL/L (3.5-5.1); SODIUM 134 MMOL/L (135-145); TOTAL CARBON DIOXIDE 27.6 MMOL/L (24-32); TOTAL PROTEIN 6.5 G/DL (6.4-8.2); eGFR 17 ML/MIN
--- NOTE | 2022-08-22 07:38 | NUR ---
I did not receive report from NOC RN.
[2022-08-22] MEDS ORDERED: gabapentin 300mg capsule PO SCH (08:00)
[2022-08-22] MEDS ORDERED: PRED10TA23 PO (08:25)
[2022-08-22] MEDS ORDERED: LISI10TA27 PO (08:25)
[2022-08-22] MEDS ORDERED: LEVA1.2544 IH (08:25)
[2022-08-22] MEDS ORDERED: LEVO-65 PO (08:25)
[2022-08-22] MEDS ORDERED: GUAI600T45 PO (08:25)
[2022-08-22] MEDS: furosemide 40mg/4ml inj IV SCH (08:45)
[2022-08-22] MEDS: aspirin 81mg, enteric-coated 1 TAB TABLET.DR PO SCH (08:47)
[2022-08-22] MEDS: isosorbide mononitrate 30mg tab.SR.24H PO SCH (08:47)
[2022-08-22] MEDS: citalopram 20mg tablet PO SCH (08:47)
[2022-08-22] MEDS: levoTHYROXINE 125mcg tablet PO SCH (08:49)
[2022-08-22] MEDS: carBAMazepine 100mg chewable tablet PO SCH (08:49)
[2022-08-22] MEDS: labetalol 100mg tablet PO SCH (08:49)
[2022-08-22] MEDS: heparin, porcine 5000 units/ml vial SQ SCH (08:50)
[2022-08-22] MEDS: pantoprazole 40mg Tablet.DR PO SCH (09:32)
[2022-08-22 09:49] VITALS: BP 167/71
--- NOTE | 2022-08-22 10:25 | NUR ---
as clinical instructor, i reviewed student nurse charting
[2022-08-22 10:43] VITALS: BP 165/74
--- NOTE | 2022-08-22 13:00 | NUR ---
Patient stable for discharge per MD orders. New prescriptions e-scripted to pharmacy to in [place]. Belongings collected and sent with patient. florist supplies salesperson discontinued. PIV discontinued and cannula intact. Patient will call PCP to make own appointment. Patient wheeled down to lobby and left via private vehicle.
--- NOTE | 2022-08-22 13:18 | NUR ---
Student Medication Administration: For this medication-pass time frame, all medication were reviewed, dispensed, administered and documented per hospital policy by miya Nicholson nurse.
--- NOTE | 2022-08-22 13:18 | NUR ---
Student documentation: I have reviewed and agree with all interventions, assessments performed and documented by Lyn student nurse.
[2022-08-23 15:58] LABS: HBSAG SCREEN Negative (Negative)
== END 2022-08-22 13:00 | disposition home or self-care (01) | DRG 194 ==
LOC: ER 03:27 → ED HOLD 04:52 → PCU 3S 07:45
PROVIDERS: ADMIT Internal Medicine; ATTEND Internal Medicine
PROC: 5A1D70Z Performance of Urinary Filtration, Intermittent, Less than 6 Hours Per Day (ICD-10-PCS; principal; 2022-08-21)
DX: I13.2 Hypertensive heart and chronic kidney disease with heart failure and with stage 5 chronic kidney disease, or end stage renal disease (principal); N17.9 Acute kidney failure, unspecified; E87.1 Hypo-osmolality and hyponatremia; D64.9 Anemia, unspecified; F31.9 Bipolar disorder, unspecified; F17.210 Nicotine dependence, cigarettes, uncomplicated; F41.9 Anxiety disorder, unspecified; M54.9 Dorsalgia, unspecified; I16.1 Hypertensive emergency; I50.33 Acute on chronic diastolic (congestive) heart failure; G43.909 Migraine, unspecified, not intractable, without status migrainosus; G89.29 Other chronic pain; J96.11 Chronic respiratory failure with hypoxia; G40.909 Epilepsy, unspecified, not intractable, without status epilepticus; J44.9 Chronic obstructive pulmonary disease, unspecified; N18.6 End stage renal disease; Z85.41 Personal history of malignant neoplasm of cervix uteri; Z85.850 Personal history of malignant neoplasm of thyroid; Z86.73 Personal history of transient ischemic attack (TIA), and cerebral infarction without residual deficits; Z88.0 Allergy status to penicillin; Z88.8 Allergy status to other drugs, medicaments and biological substances; Z90.49 Acquired absence of other specified parts of digestive tract; Z99.2 Dependence on renal dialysis; Z79.899 Other long term (current) drug therapy; Z79.82 Long term (current) use of aspirin
CPT/HCPCS: 36415; 71045; 80053; 83605; 83735; 83880; 84145; 84484; 85025; 87040; 87081; 87340; 93005; 93306; 94640; 94760; 96374; 96375; 99285; A6209; A6212; A6213; A6258; E1594; G0378; J1644; J1940; J3490; J7030; J7614; Q4081

== ENCOUNTER 2022-09-09 12:01 | Emergency (ER) | payer MEDICAID ==
[~2022-09-09] VITALS: Ht 162.6 cm; Wt 59.0 kg
[~2022-09-09 12:01] MED LIST changes: +BUDE10.26 PO; +GUAI600T45 PO; +LEVA1.2544 IH; -LEVO-65 PO; +LISI10TA27 PO; +PRED10TA23 PO; +TIOT4MIS2
[2022-09-09 12:18] VITALS: BP 142/97
== END 2022-09-09 16:24 | disposition home or self-care (01) ==
LOC: ER 12:02
DX: S63.591A Other specified sprain of right wrist, initial encounter (principal); G43.909 Migraine, unspecified, not intractable, without status migrainosus; J44.9 Chronic obstructive pulmonary disease, unspecified; E03.9 Hypothyroidism, unspecified; G89.29 Other chronic pain; F41.9 Anxiety disorder, unspecified; F12.90 Cannabis use, unspecified, uncomplicated; F31.9 Bipolar disorder, unspecified; N18.9 Chronic kidney disease, unspecified; Z72.89 Other problems related to lifestyle; Z86.73 Personal history of transient ischemic attack (TIA), and cerebral infarction without residual deficits; Z88.0 Allergy status to penicillin; Z88.8 Allergy status to other drugs, medicaments and biological substances; Z88.6 Allergy status to analgesic agent; Z79.82 Long term (current) use of aspirin; Z79.899 Other long term (current) drug therapy; W06.XXXA Fall from bed, initial encounter; Y93.89 Activity, other specified; Y92.89 Other specified places as the place of occurrence of the external cause; Y99.8 Other external cause status
CPT/HCPCS: 29125; 73110; 99284

== ENCOUNTER 2022-11-25 16:26 | Emergency (ER) | payer MEDICAID ==
[~2022-11-25] VITALS: Ht 162.6 cm; Wt 47.3 kg
[~2022-11-25 16:26] MED LIST changes: -PRED10TA23 PO
[2022-11-25 16:32] VITALS: BP 187/90
[2022-11-25 17:11] LABS: BASOPHILS # (AUTO) 0.1 X10'3 (0-0.2); BASOPHILS % (AUTO) 0.9 % (0-1); EOSINOPHILS # (AUTO) 0.3 X10'3 (0-0.9); EOSINOPHILS % (AUTO) 3.3 % (0-6); HEMATOCRIT 39.8 % (35.0-45.0); LYMPHOCYTES # (AUTO) 1.1 X10'3 (1.1-4.8); MEAN CORPUSCULAR HEMOGLOBIN 30.6 PG (27.0-31.0); MEAN CORPUSCULAR HGB CONC 32.8 g/dL (33.0-36.5); MEAN CORPUSCULAR VOLUME 93.4 FL (78-98); MEAN PLATELET VOLUME 6.6 FL (7.4-10.4); MONOCYTES # (AUTO) 0.7 X10'3 (0-0.9); MONOCYTES % (AUTO) 7.4 % (2-12); NEUTROPHILS # (AUTO) 7.9 X10'3 (1.8-7.7); NEUTROPHILS % (AUTO) 77.4 % (42-75); PLATELET COUNT 176 X10'3 (140-440); RED BLOOD COUNT 4.26 X10'6 (4.20-5.60); RED CELL DISTRIBUTION WIDTH 16.3 % (11.5-14.5); WHITE BLOOD COUNT 10.1 X10'3 (4.5-11.0)
[2022-11-25] MEDS ORDERED: LORazepam 2 mg/ml vial IV ONE (17:15)
[2022-11-25 17:23] LABS: ALANINE AMINOTRANSFERASE 15 U/L (12-78); ALBUMIN 3.7 G/DL (3.4-5.0); ALBUMIN/GLOBULIN RATIO 0.9 (1.1-1.5); ALKALINE PHOSPHATASE 108 IU/L (46-116); ANION GAP 9 (8-16); ASPARTATE AMINO TRANSFERASE 15 U/L (10-37); BILIRUBIN,TOTAL 0.5 MG/DL (0.1-1.0); BLOOD UREA NITROGEN 67 MG/DL (7-18); BUN/CREATININE RATIO 16.1 (10.0-20.0); CALCIUM 7.9 MG/DL (8.5-10.1); CHLORIDE 95 MMOL/L (99-107); CREATININE 4.16 MG/DL (0.40-0.90); GLUCOSE 102 MG/DL (70-104); POTASSIUM 5.6 MMOL/L (3.5-5.1); SODIUM 132 MMOL/L (135-145); TOTAL CARBON DIOXIDE 28.3 MMOL/L (24-32); TOTAL PROTEIN 7.6 G/DL (6.4-8.2); eGFR 11 ML/MIN
[2022-11-25] MEDS ORDERED: dextrose 50%-water 50ml dispensing syringe IV ONE (17:55)
[2022-11-25] MEDS ORDERED: sodium polystyrene sulfonate 15gm/60ml oral suspension PO ONE (17:55)
[2022-11-25] MEDS ORDERED: insulin regular, human 10 units/0.1 ml syringe IV ONE (17:55)
[2022-11-25 18:47] LABS: URINE AMPHETAMINE SCREEN NEGATIVE (Neg); URINE BARBITUATE SCREEN NEGATIVE (Neg); URINE BENZODIAZEPINES SCREEN NEGATIVE (Neg); URINE CANNABINOID SCREEN POSITIVE (Neg); URINE COCAINE SCREEN NEGATIVE (Neg); URINE METHADONE SCREEN NEGATIVE (Neg); URINE OPIATE SCREEN NEGATIVE (Neg); URINE PHENCYCLIDINE SCREEN NEGATIVE (Neg)
== END 2022-11-25 18:55 | disposition home or self-care (01) ==
LOC: ER 16:27
DX: R56.9 Unspecified convulsions (principal); E87.5 Hyperkalemia; Z91.148 Patient's other noncompliance with medication regimen for other reason; G43.909 Migraine, unspecified, not intractable, without status migrainosus; J44.9 Chronic obstructive pulmonary disease, unspecified; E03.9 Hypothyroidism, unspecified; F31.9 Bipolar disorder, unspecified; G89.29 Other chronic pain; M54.9 Dorsalgia, unspecified; F12.10 Cannabis abuse, uncomplicated; Z88.0 Allergy status to penicillin; Z88.8 Allergy status to other drugs, medicaments and biological substances; Z88.6 Allergy status to analgesic agent; Z79.899 Other long term (current) drug therapy
CPT/HCPCS: 36415; 70450; 71045; 80053; 80305; 85025; 96374; 96375; 99285; J1815; J2060; J3490